=== PATIENT | female | born 2000 | race Caucasian/White ===

== ENCOUNTER 2021-11-10 15:06 | Emergency (ER) | payer OTHER ==
--- OUTSIDE RECORDS SUMMARY | 2021-11-10 15:10 | XMS REPORT | Continuity of Care Document ---
:2000 Author Organization [facility] t Address [facility] Marc Garnett [address] [place] [address] Care Team Providers Name Role Phone Pcp, Does Not Have A Primary Care Physician Lexa Chaney Attending Clinician Verónica Nino Attending Clinician Payers Payer Name Policy Type Policy Number Effective Date Expiration Date S ource Problems Condition Condition Condition Status Onset Resolution Last Treating Co mments Source Name Details Category Date Date Treatment Clinician Date Encounter Encounter Disease Active Uni vers for other for other 1-10 ity of general general 00:00: [place] counseling counseling 00 Me dical or advice or advice Bran ch on on contracept contracept ion ion Chorioamni Chorioamni Disease Active 2020-05 U jomar onitis onitis - ity of 00:00: [address] Anemia, Anemia, Disease Active 2020-05 Univers - it y of 00:: [address] Thrombocyt Thrombocyt Disease Active 2020-05 U jomar openia openia - ity of 00:00: [address] Obesity Obesity Disease Active 2020-05 Univers (BMI (BMI 1-25 ity of 30-39.9) 30-39.9) 00:00: [address] Susceptibl Susceptibl Disease Active U nivers e to e to 5-12 ity of varicella varicella 00:00: [place] (non-immun (non-immun 00 Me dical e), e), Branch currently currently Nausea and Nausea and Disease Active U jomar vomiting vomiting 5-06 ity of during during 00:00: [place] 00 Medi mi Branch Supervisio Supervisio Disease Active U nivers n of n of 5-06 ity of high-risk [place] d[place] first first Branch trimester trimester History of History of Disease Active U nivers anxiety anxiety 5-06 ity of 00:00: [place] 00 Medical Branch History of History of Disease Active U nivers depression depression 5-06 it y of 00:00: [place] 00 [facility] Allergies, Adverse Reactions, Alerts Allergy Allergy Status Severity Reaction(s) Onset Inactive Treating Comm ents Source Name Type Date Date Clinician Jose Chao Active Hives Univers ty to 6-13 ity of adverse 00:00: [place] reaction 00 [facility] Social History Social Habit Start Date Stop Date Quantity Comments Source ASSERTION 2020-08-17 [facility] 00:00:00 [facility] Exposure to 2021-10-28 2021-11-07 Not sure [facility] SARS-CoV-2 00:00:00 14:24:00 [facility] (event) [place] Alcohol intake 2021-11-07 2021-11-07 Ex-drinker [facility] 00:00:00 00:00:00 (finding) [facility] Tobacco use and 2020-09-28 2020-09-28 Never used Universit y of exposure 00:00:00 00:00:00 [facility] Sex Assigned At [birth year] Universit y of 00:00:00 00:00:00 [facility] Smoking Status Start Date Stop Date Source Never smoker [facility] Medications Ordered Filled Start Stop Current Ordering Indication Dosage Frequency Signature Comments Components Source Medication Medication Date Date Medication? Clinician (SIG) Name Name norgestimat Yes [id number] 1{tbl} Take 1 Univers e-ethinyl 6-15 tablet by ity o f estradioL 00:00: mouth [place] 0.18/0.215/ 00 daily. Medica l 0.25 mg-35 Branch mcg (28) tablet doxycycline 2021- Yes [id number] 100mg Take 1 Univers hyclate 100 6-13 06-21 tablet by it y of mg tablet 00:00: 04:59 [place] 2 [place] 00 [place] (two) Medical times Branch daily for 7 days. D5W-LR 2020- No Ketonuria 1000mL Uni vers Bolus 5-06 05-06 ity of infusion 16:00: 15:23 [place] 1,000 mL 00 :00 Medical Branch D5W-LR 2020- No [id number] 1000mL at 500 U nivers Bolus 5-06 05-06 mL/hr, ity of infusion 16:00: 15:23 1,000 mL, Sanjiv as 1,000 mL 00 :00 IV Medical Infusion, Branch ONCE, 1 dose, Mora 09/28/20 at 1100, Routine D5W-LR 2020- No Ketonuria 1000mL Uni vers Bolus 5- 05-06 ity of infusion 16:00: 15:23 [place] 1,000 mL 00 :00 Medical Branch D5W-LR 2020- No [id number] 1000mL at 500 U nivers Bolus 5-06 05-06 mL/hr, ity of infusion 16:00: 15: 1,000 mL, Sanjiv as 1,000 mL 00 :00 IV Medical Infusion, Branch ONCE, 1 dose, Mora 09/28/20 at 1100, Routine D5W-LR 2020- No Ketonuria 1000mL Uni vers Bolus 5- 05-06 ity of infusion 16:00: 15:23 [place] 1,000 mL 00 :00 Medical Branch D5W-LR 2020- No [id number] 1000mL at 500 U nivers Bolus 5-06 05-06 mL/hr, ity of infusion 16:00: 15: 1,000 mL, Sanjiv as 1,000 mL 00 :00 IV Medical Infusion, Branch ONCE, 1 dose, Mora 09/28/20 at 1100, Routine proMETHazin Yes Nausea and 25mg Take 1 Univers e 25 mg 5-06 vomiting tablet by ity of tablet 00:00: during mouth [place] every 4 Medical (four) Branch hours as needed for Nausea and Vomiting (N/V). PNV 67-iron Yes Supervision 1{capsu Take 1 Univers ps-folate 5-06 of le} capsule by ity of no.1-dha 00:00: high-risk mouth Sanjiv as (VITAFOL 00 , daily. Med ical ULTRA) 29 first Branch mg iron- 1 trimester mg-200 mg Cap proMETHazin Yes Nausea and 25mg Take 1 Univers e 25 mg 5-06 vomiting tablet by ity of tablet 00:00: during mouth [place] 00 every 4 Medical (four) Branch hours as needed for Nausea and Vomiting (N/V). PNV 67-iron Yes Supervision 1{capsu Take 1 Univers ps-folate 5-06 of le} capsule by ity of no.1-dha 00:00: high-risk mouth Sanjiv as (VITAFOL 00 , daily. Med ical ULTRA) 29 first Branch mg iron- 1 trimester mg-200 mg Cap proMETHazin Yes Nausea and 25mg Take 1 Univers e 25 mg 5-06 vomiting tablet by ity of tablet 00:00: during mouth [place] 00 every 4 Medical (four) Branch hours as needed for Nausea and Vomiting (N/V). PNV 67-iron Yes Supervision 1{capsu Take 1 Univers ps-folate 5-06 of le} capsule by ity of no.1-dha 00:00: high-risk mouth Sanjiv as (VITAFOL 00 , daily. Med ical ULTRA) 29 first Branch mg iron- 1 trimester mg-200 mg Cap Immunizations Ordered Filled Immunization Date Status Comments [facility] e Immunization Name Name Varicella 2021-04-22 Completed [facility] (varivax)(chicken 00:00:00 [facility] edical pox) [place] Influenza Virus 2021-04-22 [address] [facility] y of Vaccine Quad IM, 00:00:00 [facility] dical Preserv and ABX Branch Free 6 MO-64 YRS TDAP 2021-02-20 Completed [facility] 00:00:00 [facility] Vital Signs Vital Name Observation Time Observation Value Comments Source Systolic blood 2021-11-07 19:24:00 107 mm[Hg] Univer sity of pressure [facility] Diastolic blood 2021-11-07 19:24:00 66 [facility]Hg[facility] 2021-11-07 19:24:00 86 /min [facility] Body temperature 2021-11-07 19:24:00 36.67 [facility] 2021-11-07 19:24:00 16 /min [facility] [place] Body height 2021-11-07 19:24:00 160 cm Universi ty of [place] Medical [place] Body weight 2021-11-07 19:24:00 82.872 kg Universi ty [facility] Medical [place] BMI 2021-11-07 19:24:00 32.36 kg/m2 Universi ty [facility] Systolic blood 2020-09-28 14:20:00 112 mm[Hg] Univer sity of pressure [place] [facility] [place] Diastolic blood 2020-09-28 14:20:00 72 mm[facility]Hg] [facility] Heart rate 2020-09-28 14:20:00 84 /min Universi ty [facility] Body temperature 2020-09-28 14:20:00 36.78 Dayan [facility] Respiratory rate 2020-09-28 14:20:00 16 /min [facility] Body height 2020-09-28 14:20:00 160 cm Universi ty [facility] Medical [place] Body weight 2020-09-28 14:20:00 57.664 kg Universi ty [facility] BMI 2020-09-28 14:20:00 22.52 kg/m2 Universi [facility] Procedures Procedure Date / Time Performed Performing Clinician Sour e POCT URINALYSIS W/O 2020-09-28 16:45:00 Ailyn Erickson [facility] POCT TEST 2020-09-28 14:19:00 Ailyn Erickson [facility] POCT URINALYSIS W/O 2020-09-28 14:19:00 Ailyn Erickson [facility] Plan of Care Planned Activity Planned Date Details Comments Source Future Scheduled 2021-09-28 Screening for University of Test 00:00:00 Chlamydia [facility] Branch (procedure) [code = 247109092] Future Scheduled 2021-09-28 DTaP,Tdap,and Td Postponed from Unive rsity of Test 00:00:00 Vaccines (1 - Tdap) 2008 [facility] [code = (Alternative Branch DTaP,Tdap,and Td Guidelines) Vaccines (1 - Tdap)] Future Scheduled 2021-09-28 Depression screening Uni versity of Test 00:00:00 (procedure) [code = [place] Me dical [id number]] Branch Future Scheduled 2021-09-28 MENINGOCOCCAL B Postponed from Univer sity of Test 00:00:00 VACCINES (1 of 2 - 09/30/2011 [place] Med ical Risk Bexsero 2-dose ( or Branch series) [code = ) MENINGOCOCCAL B VACCINES (1 of 2 - Risk Bexsero 2-dose series)] Future Scheduled 2021-09-28 MENINGOCOCCAL Postponed from Universi ty of Test 00:00:00 VACCINE (1 - 2-dose 2017 [place] Me dical series) [code = ( or Branch MENINGOCOCCAL ) VACCINE (1 - 2-dose series)] Future Scheduled 2021-09-28 MMR VACCINES (1 of 1 Postponed from U niversity of Test 00:00:00 - Standard series) 2002 [place] Med ical [code = MMR VACCINES ( or Branch (1 of 1 - Standard ) series)] Future Scheduled 2021-09-28 VARICELLA VACCINES Postponed from Uni versity of Test 00:00:00 (1 of 2 - 2-dose 2002 [place] Medic al childhood series) ( or Branch [code = VARICELLA ) VACCINES (1 of 2 - 2-dose childhood series)] Future Scheduled 2021-09-28 Screening for University of Test 00:00:00 Chlamydia [place] Medical trachomatis Branch (procedure) [code = [id number]] Future Scheduled 2021-09-28 DTaP,Tdap,and Td Postponed from Unive rsity of Test 00:00:00 Vaccines (1 - Tdap) 2008 [place] Me dical [code = (Alternative Branch DTaP,Tdap,and Td Guidelines) Vaccines (1 - Tdap)] Future Scheduled 2021-09-28 Depression screening Uni versity of Test 00:00:00 (procedure) [code = [place] Me dical [id number]] Branch Future Scheduled 2021-09-28 MENINGOCOCCAL B Postponed from Univer sity of Test 00:00:00 VACCINES (1 of 2 - 09/30/2011 [place] Med ical Risk Bexsero 2-dose ( or Branch series) [code = ) MENINGOCOCCAL B VACCINES (1 of 2 - Risk Bexsero 2-dose series)] Future Scheduled 2021-09-28 MENINGOCOCCAL Postponed from Universi ty of Test 00:00:00 VACCINE (1 - 2-dose 2017 [place] Me dical series) [code = ( or Branch MENINGOCOCCAL ) VACCINE (1 - 2-dose series)] Future Scheduled 2021-09-28 MMR VACCINES (1 of 1 Postponed from U niversity of Test 00:00:00 - Standard series) 2002 [place] Med ical [code = MMR VACCINES ( or Branch (1 of 1 - Standard ) series)] Future Scheduled 2021-09-28 VARICELLA VACCINES Postponed from Uni versity of Test 00:00:00 (1 of 2 - 2-dose 2002 [place] Medic al childhood series) ( or Branch [code = VARICELLA ) VACCINES (1 of 2 - 2-dose childhood series)] Future Scheduled 2021-09-28 Screening for University of Test 00:00:00 Chlamydia [place] Medical trachomatis Branch (procedure) [code = [id number]] Future Scheduled 2021-09-28 DTaP,Tdap,and Td Postponed from Unive rsity of Test 00:00:00 Vaccines (1 - Tdap) 2008 [place] Me dical [code = (Alternative Branch DTaP,Tdap,and Td Guidelines) Vaccines (1 - Tdap)] Future Scheduled 2021-09-28 Depression screening Uni versity of Test 00:00:00 (procedure) [code = [place] Me dical [id number]] Branch Future Scheduled 2021-09-28 MENINGOCOCCAL B Postponed from Univer sity of Test 00:00:00 VACCINES (1 of 2 - 09/30/2011 [place] Med ical Risk Bexsero 2-dose ( or Branch series) [code = ) MENINGOCOCCAL B VACCINES (1 of 2 - Risk Bexsero 2-dose series)] Future Scheduled 2021-09-28 MENINGOCOCCAL Postponed from Universi ty of Test 00:00:00 VACCINE (1 - 2-dose 2017 [place] Me dical series) [code = ( or Branch MENINGOCOCCAL ) VACCINE (1 - 2-dose series)] Future Scheduled 2021-09-28 MMR VACCINES (1 of 1 Postponed from U niversity of Test 00:00:00 - Standard series) 2002 [place] Med ical [code = MMR VACCINES ( or Branch (1 of 1 - Standard ) series)] Future Scheduled 2021-09-28 VARICELLA VACCINES Postponed from Uni versity of Test 00:00:00 (1 of 2 - 2-dose 2002 [place] Medic al childhood series) ( or Branch [code = VARICELLA ) VACCINES (1 of 2 - 2-dose childhood series)] Future Scheduled 2021-09-19 HPV VACCINES (1 - Postponed from Univ ersity of Test 00:00:00 2-dose series) [code 2012 [place] M edical = HPV VACCINES (1 - ( or Branch 2-dose series)] ) Future Scheduled 2021-09-19 HPV VACCINES (1 - Postponed from Univ ersity of Test 00:00:00 2-dose series) [code 2012 [place] M edical = HPV VACCINES (1 - ( or Branch 2-dose series)] ) Future Scheduled 2021-09-19 HPV VACCINES (1 - Postponed from Univ ersity of Test 00:00:00 2-dose series) [code 2012 [place] M edical = HPV VACCINES (1 - ( or Branch 2-dose series)] ) Future Scheduled 2021-01-24 INFLUENZA VACCINE Univer sity of Test 00:00:00 (Season Ended) [code [place] M edical = INFLUENZA VACCINE Branch (Season Ended)] Future Scheduled 2021-01-24 INFLUENZA VACCINE Univer sity of Test 00:00:00 (Season Ended) [code [place] M edical = INFLUENZA VACCINE Branch (Season Ended)] Future Scheduled 2021-01-24 INFLUENZA VACCINE Univer sity of Test 00:00:00 (Season Ended) [code [place] M edical = INFLUENZA VACCINE Branch (Season Ended)] Future Scheduled 2020-09-30 HEPATITIS A VACCINES Postponed from U niversity of Test 00:00:00 (1 of 2 - 2-dose 2002 [place] Medic al series) [code = (Current Branch HEPATITIS A VACCINES Contraindication) (1 of 2 - 2-dose series)] Future Scheduled 2020-09-30 HEPATITIS B VACCINES Postponed from U niversity of Test 00:00:00 (1 of 3 - 3-dose 2001 [place] Medic al primary series) (Current Branch [code = HEPATITIS B Contraindication) VACCINES (1 of 3 - 3-dose primary series)] Future Scheduled 2020-09-30 HEPATITIS A VACCINES Postponed from U niversity of Test 00:00:00 (1 of 2 - 2-dose 2002 [place] Medic al series) [code = (Current Branch HEPATITIS A VACCINES Contraindication) (1 of 2 - 2-dose series)] Future Scheduled 2020-09-30 HEPATITIS B VACCINES Postponed from U niversity of Test 00:00:00 (1 of 3 - 3-dose 2001 [place] Medic al primary series) (Current Branch [code = HEPATITIS B Contraindication) VACCINES (1 of 3 - 3-dose primary series)] Future Scheduled 2020-09-30 HEPATITIS A VACCINES Postponed from U niversity of Test 00:00:00 (1 of 2 - 2-dose 2002 [place] Medic al series) [code = (Current Branch HEPATITIS A VACCINES Contraindication) (1 of 2 - 2-dose series)] Future Scheduled 2020-09-30 HEPATITIS B VACCINES Postponed from U niversity of Test 00:00:00 (1 of 3 - 3-dose 2001 [place] Medic al primary series) (Current Branch [code = HEPATITIS B Contraindication) VACCINES (1 of 3 - 3-dose primary series)] Future Scheduled 2019-09-30 Hepatitis C University of Test 00:00:00 screening [place] Medical (procedure) [code = Branch [id number]] Future Scheduled 2019-09-30 Hepatitis C University of Test 00:00:00 screening [place] Medical (procedure) [code = Branch 216686908] Future Scheduled 2019-09-30 Hepatitis C University of Test 00:00:00 screening [place] Medical (procedure) [code = Branch [id number]] Future Scheduled 2017 SARS-CoV-2 University of Test 00:00:00 (COVID-19) Vaccine [place] Med ical (1) [code = Branch SARS-CoV-2 (COVID-19) Vaccine (1)] Future Scheduled 2017 SARS-CoV-2 University of Test 00:00:00 (COVID-19) Vaccine [place] Med ical (1) [code = Branch SARS-CoV-2 (COVID-19) Vaccine (1)] Future Scheduled 2017 SARS-CoV-2 University of Test 00:00:00 (COVID-19) Vaccine [facility] ical (1) [code = Branch SARS-CoV-2 (COVID-19) Vaccine (1)] Future Scheduled CBC WITH DIFF [code Ordered: Univ ersity of Test = 78900-0] 09/28/2020 [facility] Future Scheduled HEPATITIS B SURFACE Ordered: Univ ersity of Test ANTIGEN [code = 09/28/2020 [facility] 76206-1] Branch Future Scheduled HCV ANTIBODY [code = Ordered: Uni versity of Test 14464-0] 09/28/2020 [facility] Future Scheduled HIV 1/2 AG-AB WITH Ordered: Unive rsity of Test REFLEX [code = 09/28/2020 [facility] 02498-5] Branch Future Scheduled WORKUP, Ordered: Univers ity of Test BLOOD BANK [code = 09/28/2020 [facility] ical 3113] Branch Future Scheduled RUBELLA SCREEN Ordered: Universit y of Test (BREEZY) IGG [code = 09/28/2020 [facility] dical 72974-1] Branch Future Scheduled GALV ONLY - SYPHILIS Ordered: Uni versity of Test IGG/IGM [code = 09/28/2020 [facility] 36312-6] Branch Future Scheduled URINE CULTURE [code Ordered: Univ ersity of Test = 630-4] 09/28/2020 [facility] Future Scheduled VZV ANTIBODY SCREEN Ordered: Univ ersity of Test [code = 89354-4] 09/28/2020 [facility] Future Scheduled GC & CHLAMYDIA Universit y of Test AMPLIFIED ASSAY [facility] [code = 43207-1] [place] Future Scheduled CBC WITH DIFF [code Ordered: Univ ersity of Test = 77949-6] 09/28/2020 [facility] Future Scheduled HEPATITIS B SURFACE Ordered: Univ ersity of Test ANTIGEN [code = 09/28/2020 [facility] 37529-9] [place] Future Scheduled HCV ANTIBODY [code = Ordered: Uni versity of Test 75544-3] 09/28/2020 [facility] Future Scheduled HIV 1/2 AG-AB WITH Ordered: Unive rsity of Test REFLEX [code = 09/28/2020 [facility] 84126-8] Branch Future Scheduled WORKUP, Ordered: Univers ity of Test BLOOD BANK [code = 09/28/2020 [facility] ica 3113] Branch Future Scheduled RUBELLA SCREEN Ordered: Universit y of Test (BREEZY) IGG [code = 09/28/2020 [facility] dical 27674-9] Branch Future Scheduled GALV ONLY - SYPHILIS Ordered: Uni versity of Test IGG/IGM [[facility] = [facility] 39[facility] Branch Future Scheduled VZV ANTIBODY SCREEN Ordered: Univ ersity of Test [code = 51707-2] 09/28/2020 [facility] Future Scheduled GC & CHLAMYDIA Universit y of Test AMPLIFIED ASSAY [facility] [code = 08648-9] Branch [facility] Scheduled URINE CULTURE [code Univ ersity of Test = 630-4] [facility] Future Scheduled CBC WITH DIFF [code Ordered: Univ ersity of Test = 77813-4] 09/28/2020 [facility] Future Scheduled GC & CHLAMYDIA Ordered: Universit y of Test AMPLIFIED ASSAY 09/28/2020 [facility] l [code = 18894-8] [facility] Scheduled HEPATITIS B SURFACE Ordered: Univ ersity of Test ANTIGEN [code = 09/28/2020 [facility] 84577-0[facility] Branch [facility] Scheduled HCV ANTIBODY [code = Ordered: Uni versity of Test 56091-2] 09/28/2020 [facility] Future Scheduled HIV 1/2 AG-AB WITH Ordered: Unive rsity of Test REFLEX [code = 09/28/2020 [facility] 78429-8] Branch Future Scheduled WORKUP, Ordered: Univers ity of Test BLOOD BANK [code = 09/28/2020 [facility] ica 3113] Branch Future Scheduled RUBELLA SCREEN Ordered: Universit y of Test (BREEZY) IGG [code = 09/28/2020 [facility] dical 61489-8] Branch Future Scheduled GALV ONLY - SYPHILIS Ordered: Uni versity of Test IGG/IGM [code = [facility]28/2020 [facility] 83880-[facility] Branch [facility] Scheduled URINE CULTURE [code Ordered: Univ ersity of Test = 630-4] 09/28/2020 [facility] Future Scheduled VZV ANTIBODY SCREEN Ordered: Univ ersity of Test [code = 09434-9] 09/28/2020 [place] [facility] Branch Future Scheduled POCT URINALYSIS W/O 20 Occurrences Un iversity of Test SPECIFIC GRAVITY starting [place] Medic al [code = 02050] 09/28/2020 until Branch 09/28/2021, 1 completed Future Scheduled POCT URINALYSIS W/O 20 Occurrences Un iversity of Test SPECIFIC GRAVITY starting [place] Medic al [code = 00524] 09/28/2020 until Branch 09/28/2021, 1 completed Future Scheduled POCT URINALYSIS W/O 20 Occurrences Un iversity of Test SPECIFIC GRAVITY starting [place] Medic al [code = 67286] 09/28/2020 until Branch 09/28/2021, 1 completed Encounters Start End Encounter Admission Attending Care Care Encounter Source Date/Time Date/Time Type Type Clinicians Facility Department ID 2021-11-07 2021-11-07 Office [place] [facility] [id number] Univers 14:15:00 14:55:48 Visit Nitesh Lindquist [id number] Sanjiv as MATERNAL [id number] Med ical & CHILD 107 [facility] Results Test Description Test Time Test Comments Results Result Comments Source POCT URINALYSIS W/O SPECIFIC GRAVITY 2020-09-28 16:45:00 Test Item Value Reference Range Interpretation Comme nts POCT PH U (test code = 3254) 6 mg/dl 5-8 POCT U LEUK EST (test code = 3263) Trace Negative - Negative POCT U NIT (test code = 3262) Neg Negative - Negative POCT U PROT (test code = 3259) Trace Negative - Negative POCT U GLU (test code = 3256) 1000 Negative - Negative POCT U KETONE (test code = 3258) None Negative - Negative POCT U BLD (test code = 3257) Neg Negative - Negative [facility] SPEC[facility] [id number] 16:45:00 Test Item Value Reference Range Interpretation Comments POCT PH U (test code = 3254) 6 mg/dl 5-8 POCT U LEUK EST (test code = Trace Negative - Negative 3263) POCT U NIT (test code = 3262) Neg Negative - Negative POCT U PROT (test code = 3259) Trace Negative - Negative POCT U GLU (test code = 3256) 1000 Negative - Negative POCT U KETONE (test code = 3258) None Negative - Negative POCT U BLD (test code = 3257) Neg Negative - Negative [facility] URINALYSIS W/O SPECIFIC [id number] 16:45:00 Test Item Value Reference Range Interpretation Comments POCT PH U (test code = 3254) 6 mg/dl 5-8 POCT U LEUK EST (test code = Trace Negative - Negative 3263) POCT U NIT (test code = 3262) Neg Negative - Negative POCT U PROT (test code = 3259) Trace Negative - Negative POCT U GLU (test code = 3256) 1000 Negative - Negative POCT U KETONE (test code = 3258) None Negative - Negative POCT U BLD (test code = 3257) Neg Negative - Negative [facility] [id number] 14:19:00 Test Item Value Reference Range Interpretation Comments POCT PREG (test code = 1605) Positive On board controls acceptable with C Yes Line (test code = 3574) POCT PREG LOT # (test code = 3575) POCT PREG TEST DATE (test code = 3576) [facility] URINALYSIS W/O SPECIFIC [id number] 14:19:00 Test Item Value Reference Range Interpretation Comments POCT PH U (test code = 3254) 5 mg/dl 5-8 POCT U LEUK EST (test code = Neg Negative - Negative 3263) POCT U NIT (test code = 3262) Neg Negative - Negative POCT U PROT (test code = 3259) Trace Negative - Negative POCT U GLU (test code = 3256) Neg Negative - Negative POCT U KETONE (test code = 3258) 3+ Negative - Negative POCT U BLD (test code = 3257) Neg Negative - Negative [facility] [id number] 14:19:00 Test Item Value Reference Range Interpretation Comments POCT PREG (test code = 1605) Positive On board controls acceptable with C Yes Line (test code = 3574) POCT PREG LOT # (test code = 3575) POCT PREG TEST DATE (test code = 3576) [facility] URINALYSIS W/O SPECIFIC [id number] 14:19:00 Test Item Value Reference Range Interpretation Comments POCT PH U (test code = 3254) 5 mg/dl 5-8 POCT U LEUK EST (test code = Neg Negative - Negative 3263) POCT U NIT (test code = 3262) Neg Negative - Negative POCT U PROT (test code = 3259) Trace Negative - Negative POCT U GLU (test code = 3256) Neg Negative - Negative POCT U KETONE (test code = 3258) 3+ Negative - Negative POCT U BLD (test code = 3257) Neg Negative - Negative [facility] [id number] 14:19:00 Test Item Value Reference Range Interpretation Comments POCT PREG (test code = 1605) Positive On board controls acceptable with C Yes Line (test code = 3574) POCT PREG LOT # (test code = 3575) POCT PREG TEST DATE (test code = 3576) [facility] URINALYSIS W/O SPECIFIC [id number] 14:19:00 Test Item Value Reference Range Interpretation Comments POCT PH U (test code = 3254) 5 mg/dl 5-8 POCT U LEUK EST (test code = Neg Negative - Negative 3263) POCT U NIT (test code = 3262) Neg Negative - Negative POCT U PROT (test code = 3259) Trace Negative - Negative POCT U GLU (test code = 3256) Neg Negative - Negative POCT U KETONE (test code = 3258) 3+ Negative - Negative POCT U BLD (test code = 3257) Neg Negative - Negative [facility]
--- NOTE | 2021-11-10 17:02 | RAD REPORT ---
EXAM DESCRIPTION: US - Transvaginal Study Probe - 11/10/2021 4:31 pm CLINICAL HISTORY: cramping, recent IUD placement Pelvic pain. COMPARISON: Pelvis Complete dated 11/10/2021 FINDINGS: Transabdominal and transpelvic sonography were performed. The uterus is normal in size, shape and echotexture. The uterus measures 7 x 4 centimeters. IUD is in the fundal endometrium, appropriate placement. Both ovaries are normal in size, shape and echotexture. The right ovary measures 3.7 x 2.1 cm. The left ovary measures 4.1 x 2.5 cm. No ovarian or parovarian lesions. No adnexal masses. Normal Doppler blood flow was demonstrated to both ovaries. No significant pelvic ascites. IMPRESSION: IUD is in the fundal endometrium, appropriate placement.
--- NOTE | 2021-11-10 17:19 | EDPHYS ---
Physician Documentation [facility] Name: Toshia Mcclelland Age: 21 yrs Sex: Female : 2000 Arrival Date: 11/10/2021 Time: 15:07 Bed 10 Private MD: ED Physician Barrera Murdock HPI: 11/10 17:16 This 21 yrs old Female presents to ER via Ambulatory with complaints of Pelvic Pain - kb cramping, Vaginal Bleeding. 17:16 The patient presents with pelvic pain, vaginal bleeding that is. Onset: The kb symptoms/episode began/occurred today. Modifying factors: The symptoms are alleviated by nothing, the symptoms are aggravated by nothing. Associated signs and symptoms: Pertinent positives: cramping, vaginal bleeding. Severity of symptoms: At their worst the symptoms were moderate, in the emergency department the symptoms are unchanged. The patient has not experienced similar symptoms in the past. The patient has been recently seen by a physician:. Pt reports she had an IUD placed last month, but continued having vaginal bleeding so she went back to [facility] and was given oral BCP this week. States the bleeding has slowed down, but today she started cramping. States the cramping felt like period cramps at first, but have gotten worse. Historical: - Allergies: 15:20 No Known Allergies; aa5 - Home Meds: 15:20 None [Active]; aa5 - PMHx: 15:20 None; aa5 - PSHx: 15:20 None; aa5 - Immunization history:: Adult Immunizations up to date. - Social history:: Smoking status: Reported history of juuling and/or vaping. ROS: 17:15 Constitutional: Negative for fever, chills, and weight loss. kb 17:15 : Positive for vaginal bleeding, cramping. 17:15 All other systems are negative. Exam: 17:16 Constitutional: This is a well developed, well nourished patient who is awake, alert, kb and in no acute distress. Head/Face: Normocephalic, atraumatic. ENT: Moist Mucous membranes Respiratory: Respirations even and unlabored. No increased work of breathing. Talking in full sentences Skin: Warm, dry with normal turgor. Normal color. MS/ Extremity: Pulses equal, no cyanosis. Neurovascular intact. Full, normal range of motion. Neuro: Awake and alert, GCS 15, oriented to person, place, time, and situation. Moves all extremities. Normal gait. Psych: Awake, alert, with orientation to person, place and time. Behavior, mood, and affect are within normal limits. 17:16 Abdomen/GI: Inspection: abdomen appears normal, Bowel sounds: normal, in all quadrants, Palpation: soft, in all quadrants, mild abdominal tenderness, in the suprapubic area. Vital Signs: 15:18 BP 136 / 75; Pulse 94; Resp 18 S; Temp 97.5(TE); Pulse Ox 100% on R/A; Weight 82.55 kg aa5 (R); Height 5 ft. 3 in. (160.02 cm) (R); 15:18 Body Mass Index 32.24 (82.55 kg, 160.02 cm) aa5 MDM: 15:22 Patient medically screened. kb 17:15 Data reviewed: vital signs, nurses notes. Data interpreted: Pulse oximetry: on room air kb is 100 %. Interpretation: normal. Counseling: I had a detailed discussion with the patient and/or guardian regarding: the historical points, exam findings, and any diagnostic results supporting the discharge/admit diagnosis, radiology results, the need for outpatient follow up, an OB/Gyne specialist, to return to the emergency department if symptoms worsen or persist or if there are any questions or concerns that arise at home. 11/10 15:21 Order name: US Transvaginal Study (Probe); Complete Time: 17:15 kb 11/10 16:30 Order name: Pelvis Complete EDMS Administered Medications: No medications were administered Disposition Summary: 11/10/21 17:19 Discharge Ordered Location: Home kb Condition: Stable kb Diagnosis - Lower abdominal pain, unspecified - suprapubic cramping kb - Abnormal uterine and vaginal bleeding, unspecified kb Followup: kb - With: Emergency Department - When: As needed - Reason: Worsening of condition Followup: kb - With: Private Physician - When: 2 - 3 days - Reason: Recheck today's complaints, Continuance of care, Re-evaluation by your physician Discharge Instructions: - Discharge Summary Sheet kb - Pelvic Pain, Female, [id number] kb - Abnormal Uterine Bleeding, [id number] kb Forms: - Medication Reconciliation Form kb - Thank You Letter kb - Antibiotic Education kb - Prescription Opioid Use kb Prescriptions: - Diclofenac Sodium 75 mg Oral tablet,delayed release (DR/EC) - take 1 tablet by ORAL route 2 times per day As needed; 30 tablet; Refills: 0, kb Product Selection Permitted Signatures: Dispatcher [employer] Saloni Wei, DIDI-C Candi Collado, RN RN aa5
--- NOTE | 2021-11-10 17:19 | ER ---
Nurse's Notes 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 Reports lower abd cramping x 2 hours ago. Coronavirus screen: At this time, the client does not indicate any symptoms associated with coronavirus-19. Ebola Screen: Patient denies travel to an Ebola-affected area in the 21 days before illness onset. Initial Sepsis Screen: Does the patient meet any 2 criteria? HR > 90 bpm. Does the patient have a suspected source of infection? No. Patient's initial sepsis screen is negative. Risk Assessment: Do you want to hurt yourself or someone else? Patient reports no desire to harm self or others. Onset of symptoms was October 2021. 15:18 Acuity: ANA 3 aa5 15:18 Method Of Arrival: Ambulatory aa5 Historical: - Allergies: 15:20 No Known Allergies; aa5 - Home Meds: 15:20 None [Active]; aa5 - PMHx: 15:20 None; aa5 - PSHx: 15:20 None; aa5 - Immunization history:: Adult Immunizations up to date. - Social history:: Smoking status: Reported history of juuling and/or vaping. Screenin:23 Abuse screen: Denies threats or abuse. Denies injuries from another. Nutritional ss screening: No deficits noted. Tuberculosis screening: Never had TB. Fall Risk None identified. Assessment: 17:23 General: Appears in no apparent distress. comfortable, Behavior is calm, cooperative. ss Neuro: Jennings Agitation-Sedation Scale (RASS): 0 - Alert and Calm Level of Consciousness is awake, alert, obeys commands, Oriented to person, place, time, situation. Respiratory: Airway is patent Respiratory effort is even, unlabored, Respiratory pattern is regular, symmetrical. GI: No signs and/or symptoms were reported involving the gastrointestinal system. : Denies burning with urination, urinary frequency. Derm: Skin is pink, warm \\T\\ dry. normal. Vital Signs: 15:18 BP 136 / 75; Pulse 94; Resp 18 S; Temp 97.5(TE); Pulse Ox 100% on R/A; Weight 82.55 kg aa5 (R); Height 5 ft. 3 in. (160.02 cm) (R); 15:18 Body Mass Index 32.24 (82.55 kg, 160.02 cm) aa5 ED Course: 15:07 Patient arrived in ED. as 15:12 Saloni Herzog FNP-C is [facility]. kb 15:12 Barrera Murdock MD is Attending Physician. kb 15:18 Arm band placed on. aa5 15:20 Triage completed. aa5 16:30 Pelvis Complete In Process Unspecified. EDMS 16:32 US Transvaginal Study (Probe) In Process Unspecified. EDMS 17:23 Tammy Torres, LUPIS is Primary Nurse. ss 17:23 Patient has correct armband on for positive identification. Bed in low position. ss 17:23 No provider procedures requiring assistance completed. Patient did not have IV access ss during this emergency room visit. Administered Medications: No medications were administered Medication: 17:23 VIS not applicable for this client. ss Outcome: 17:19 Discharge ordered by . kb 17:23 Discharged to home ambulatory, with family. ss 17:23 Condition: good 17:23 Discharge instructions given to patient, Instructed on discharge instructions, follow up and referral plans. medication usage, Demonstrated understanding of instructions, follow-up care, medications, Prescriptions given X 1. 17:24 Patient left the ED. ss Signatures: Dispatcher [employer] EDMS Saloni Herzog FNP-C FNP-Ckb Martinez, Amelia as Candi Lee, RN RN aa Tammy Torres, LUPIS RN ss
[2021-11-10 17:30] VITALS: BP 136/75; TEMP 97.5; O2SAT 100
--- NOTE | 2021-11-12 11:51 | RAD REPORT ---
EXAM DESCRIPTION: US - Pelvis Complete - 11/10/2021 4:31 pm CLINICAL HISTORY: Cramping, recent IUD placement Pelvic pain. COMPARISON: Pelvis Complete dated 11/10/2021 FINDINGS: Transabdominal and transpelvic sonography were performed. The uterus is normal in size, shape and echotexture. The uterus measures 7 x 4 centimeters. IUD is in the fundal endometrium, appropriate placement. Both ovaries are normal in size, shape and echotexture. The right ovary measures 3.7 x 2.1 cm . The l eft ovary measures 4.1 x 2.5 cm . No ovarian or parovarian lesions. No adnexal masses. Normal Doppler blood flow was demonstrated to both ovaries. No significant pelvic ascites. IMPRESSION: IUD is in the fundal endometrium, appropriate placement.
== END 2021-11-10 17:24 | disposition home or self-care (01) ==
LOC: ER 15:06
DX: R10.2 Pelvic and perineal pain (principal); N93.9 Abnormal uterine and vaginal bleeding, unspecified; F17.290 Nicotine dependence, other tobacco product, uncomplicated
CPT/HCPCS: 76830; 76856; 99283

== ENCOUNTER 2022-11-06 22:02 | Emergency (ER) | payer OTHER ==
--- OUTSIDE RECORDS SUMMARY | 2022-11-06 22:43 | XMS REPORT | Continuity of Care Document ---
:2000 Author Organization [facility] t Address [address] [place] [address] [place] [id number] Care Team Providers Name Role Phone Katerin Rider Primary Care Physician [phone] MAEGAN GOFF Attending Clinician Unavailable MAEGAN GOFF Attending Clinician Unavailable ROSEMARIE MCCORMCAK Attending Clinician Unavailable Rosemarie Mccormack MD Attending Clinician Unknown, Attending Attending Clinician Unavailable KATERIN SHIPLEY Attending Clinician Unavailable Katerin Rider Attending Clinician [phone] GERI CHANDLER Attending Clinician Unavailable Geri Chandler CNM Attending Clinician Doctor Unassigned, [place] Attending Clinician Unavailable QUINTIN JASSO Attending Clinician Unavailable Quintin Cerrato Attending Clinician Nitesh Chaney Attending Clinician LANIE MURDOCK Attending Clinician Unavailable Lanie Murdock DPM Attending Clinician [phone] NITESH RAMÍREZ Attending Clinician Unavailable FRANSISCO SANTANA Attending Clinician Unavailable CORRIE GALLEGO Attending Clinician Unavailable Corrie Fam Attending Clinician SARAH SHEPHERD Attending Clinician Unavailable José Armenta MD Attending Clinician JOSÉ ARMENAT Attending Clinician Unavailable JOSÉ ARMENTA Attending Clinician Unavailable REMA HERRERA Attending Clinician Unavailable Rema Herrera DO Attending Clinician Sharon FILLER PICKER, Ti Sanches Attending Clinician Glenn PIMENTEL, Magean Attending Clinician Lalito Torres MD Attending Clinician Lizandro Davenport MD Attending Clinician TI HERRERA Attending Clinician Unavailable Ultrasound, Ang-steph Attending Clinician Unavailable Milad PIMENTEL, Ponce Woodard Attending Clinician [phone] PONCE STINSON Attending Clinician Unavailable Bon PIMENTEL, Glo Schmitz Attending Clinician GLO ARAGON Attending Clinician Unavailable GENEVIEVE WHITE Attending Clinician Unavailable GENEVIEVE WHITE Attending Clinician Unavailable Genevieve White MD Attending Clinician Lab, [facility] Attending Clinician Unavailable ADELINA AZAR Attending Clinician Unavailable [facility] Attending Clinician Nehal RN, Daisy Pierre Attending Clinician Unavailable Mikey TOLBERT, Eduardo Attending Clinician EDUARDO NEW Attending Clinician Unavailable Ultrasound, Jane [facility] Attending Clinician Unavailable Syed Leary MD Attending Clinician 1, [facility] Attending Clinician Unavailable Lab, [facility] Attending Clinician Unavailable Karena MSN, Mary Villalpando Attending Clinician Lab, Jane Fam Pob I Attending Clinician Unavailable UNKNOWN, ATTENDING Attending Clinician Unavailable MAEGAN GOFF Admitting Clinician Unavailable GENEVIEVE WHITE Admitting Clinician Unavailable Maegan Goff MD Admitting Clinician Genevieve White MD Admitting Clinician Payers Payer Name Policy Type Policy Number Effective Date Expiration Date Shalini lewis [facility] [place] [id number] 2020 00:00:00 Problems Condition Condition Condition Status Onset Resolution Last Treating Co mments Source Name Details Category Date Date Treatment Clinician Date Encounter Encounter Disease Active Uni vers for other for other 1-10 ity of general general 00:00: [place] counseling counseling 00 Me dical or advice or advice Bran ch on on contracept contracept ion ion Chorioamni Chorioamni Disease Active 2020-05 U jomar onitis onitis - ity of 00:00: [place] [facility] Anemia, Anemia, Disease Active 2020-05 Univers - it y of 00:00: [place] [facility] Thrombocyt Thrombocyt Disease Active 2020-05 U toners openia openia - ity of 00:: [place] [facility] Thrombocyt Thrombocyt Disease Active 2020-05 U nivers openia openia 06-21 ity of 00:: [place] [facility] Obesity Obesity Disease Active 2020-05 Univers (BMI (BMI 1-25 ity of 30-39.9) 30-39.9) 00:00: [place] [facility] Susceptibl Susceptibl Disease Active U toners e to e to 5-12 ity of varicella varicella 00:00: [place] (non-immun (non-immun 00 Me dical e), e), Branch currently currently History of History of Disease Active U jomar anxiety anxiety 5-06 ity of 00:00: [place] [facility] History of History of Disease Active U jomar depression depression 5-06 it y of 00:00: [place] [facility] Allergies, Adverse Reactions, Alerts Allergy Allergy Status Severity Reaction(s) Onset Inactive Treating Comm ents Source Name Type Date Date Clinician Jose Propensi Active Hives Univers ty to 6-13 ity of adverse 00:00: [place] reaction 00 Medical s Branch JOSE DRUG Active Hives Univers INGREDI 6-13 ity of 00:00: [place] [address] Medical Branch Social History Social Habit Start Date Stop Date Quantity Comments Source Exposure to 2022-10-26 2022-11-05 Not sure [facility] SARS-CoV-2 00:00:00 12:29:00 [facility] [place] [facility] (event) Branch Alcohol intake 2022-11-05 2022-11-05 Ex-drinker [facility] 00:00:00 00:00:00 [facility]finding[facility] Tobacco use and 2022-02-07 2022-02-07 Smokeless tobacco Un iversity of exposure 00:00:00 00:00:00 non-user [facility] Sex Assigned At [birth year] Universit y of 00:00:00 00:00:00 [facility] Smoking Status Start Date Stop Date Source Never smoked tobacco [facility] Medications Ordered Filled Start Stop Current Ordering Indication Dosage Frequency Signature Comments Components Source Medication Medication Date Date Medication? Clinician (SIG) Name Name ondansetron Yes [id number] 4mg Take 1 Univers 4 mg 6-13 tablet by ity of disintegrat 00:00: mouth [place] ing tablet 00 every 8 Medica l (eight) Branch hours as needed for Nausea and Vomiting (N/V). ondansetron Yes [id number] 4mg Take 1 Univers 4 mg 6-13 tablet by ity of disintegrat 00:00: mouth [place] ing tablet 00 every 8 Medica l (eight) Branch hours as needed for Nausea and Vomiting (N/V). ondansetron Yes [id number] 4mg Take 1 Univers 4 mg 6-13 tablet by ity of disintegrat 00:00: mouth [place] ing tablet 00 every 8 Medica l (eight) Branch hours as needed for Nausea and Vomiting (N/V). ondansetron Yes [id number] 4mg Take 1 Univers 4 mg 6-13 tablet by ity of disintegrat 00:00: mouth [place] ing tablet 00 every 8 Medica l (eight) Branch hours as needed for Nausea and Vomiting (N/V). dicyclomine 2022- Yes [id number] 10mg Take 1 Univers 10 mg 6-13 06-21 capsule by ity of capsule 00:00: 04:59 mouth 4 [place] 00 :00 (four) Medical times Branch daily for 7 days. dicyclomine 2022- Yes [id number] 10mg Take 1 Univers 10 mg 6-13 06-21 capsule by ity of capsule 00:00: 04:59 mouth 4 [place] 00 :00 (four) Medical times Branch daily for 7 days. dicyclomine 2022- Yes [id number] 10mg Take 1 Univers 10 mg 6-13 06-21 capsule by ity of capsule 00:00: 04:59 mouth 4 [place] 00 :00 (four) Medical times Branch daily for 7 days. dicyclomine 2022- Yes [id number] 10mg Take 1 Univers 10 mg 11-05- capsule by ity of capsule 00:00: 04:59 mouth 4 [place] 00 :00 (four) Medical times [place] daily for 7 days. predniSONE 2022- Yes [id number] 40mg Take 2 Univers 20 mg 08-21- tablets by ity of tablet 00:00: 04:59 mouth in [place] 00 :00 the Medical morning Branch for 5 days. medroxyPROG 2022- No [id number] 150mg Univers ESTERone 15 -17 ity of (DEPO-PROVE 19:30: 19:29 [facility]) syringe 00 :00 Medical 150 mg Branch medroxyPROG 2022- No [id number] 150mg 150 mg, Univers ESTERone 02-07-17 Intramuscu ity of (DEPO-PROVE 19:30: 19:29 [facility]) syringe 00 :00 [id number], Med ical 150 mg 4 doses, Branch First dose on [place] 02/07/22 at 1430, Last dose on [place] 10/17/22 at 1430, Routine medroxyPROG 2022- No [id number] 150mg Univers ESTERone -07 01- ity of (DEPO-PROVE 19:30: 19:29 [facility]) syringe 00 :00 Medical 150 mg Branch medroxyPROG 2022- No [id number] 150mg 150 mg, Univers ESTERone 02-07-17 Intramuscu ity of (DEPO-PROVE 19:30: 19:29 [facility]) syringe 00 :00 [id number], Med ical 150 mg 4 doses, Branch First dose on [place] 02/07/22 at 1430, Last dose on [place] 10/17/22 at 1430, Routine medroxyPROG 2021-2022- No [id number] 150mg Univers ESTERone -15 -17 ity of (DEPO-PROVE 19:30: 19:29 [facility]) syringe 00 :00 Medical 150 mg Branch medroxyPROG 2022- No [id number] 150mg Univers ESTERone 9-15 08-17 ity of (DEPO-PROVE 19:30: 19:29 [place] [facility]) syringe 00 :00 Medical 150 mg Branch medroxyPROG 2022-0 2023- No [id number] 150mg Univers ESTERone 9-15 08-17 ity of (DEPO-PROVE 19:30: 19:29 [place] [facility]) syringe 00 :00 Medical 150 mg Branch medroxyPROG 2022-0 2023- No [id number] 150mg Univers ESTERone 9-15 08-17 ity of (DEPO-PROVE 19:30: 19:29 [place] [facility]) syringe 00 :00 Medical 150 mg Branch medroxyPROG 2022-0 2023- No [id number] 150mg Univers ESTERone 9-15 08-17 ity of (DEPO-PROVE 19:30: 19:29 [place] [facility]) syringe 00 :00 Medical 150 mg Branch medroxyPROG 2022-0 2023- No [id number] 150mg Univers ESTERone 9-15 04-08 ity of (DEPO-PROVE 19:30: 20:10 [place] [facility]) syringe 00 :11 Medical 150 mg Branch medroxyPROG 2022-0 2023- No [id number] 150mg Univers ESTERone 9-15 04-08 ity of (DEPO-PROVE 19:30: 20:10 [place] [facility]) syringe 00 :11 Medical 150 mg Branch medroxyPROG 2022-0 2022- No [id number] 150mg Univers ESTERone 9-15 09-15 ity of (DEPO-PROVE 19:15: 19:15 [place] [facility]) 00 :47 Medical injection Branch 150 mg medroxyPROG 2022-0 2022- No [id number] 150mg Univers ESTERone 9-15 09-15 ity of (DEPO-PROVE 19:15: 19:15 [place] [facility]) 00 :47 Medical injection Branch 150 mg ciclopirox 2022-0 Yes [id number] Apply to Univers 8 % 7-08 area(s) at ity of solution 00:00: bedtime. [place] 00 Apply to Medical fungal Branch toenails once daily. Every 7 days please file toenails with nail file and apply rubbing alcohol. ciclopirox 2022-0 Yes [id number] Apply to Univers 8 % 7-08 area(s) at ity of solution 00:00: bedtime. [place] 00 Apply to Medical fungal Branch toenails once daily. Every 7 days please file toenails with nail file and apply rubbing alcohol. ciclopirox 2022-0 Yes [id number] Apply to Univers 8 % 7-08 area(s) at ity of solution 00:00: bedtime. [place] 00 Apply to Medical fungal Branch toenails once daily. Every 7 days please file toenails with nail file and apply rubbing alcohol. ciclopirox 2022-0 Yes [id number] Apply to Univers 8 % 7-08 area(s) at ity of solution 00:00: bedtime. [place] 00 Apply to Medical fungal Branch toenails once daily. Every 7 days please file toenails with nail file and apply rubbing alcohol. ciclopirox 2022-0 Yes [id number] Apply to Univers 8 % 7-08 area(s) at ity of solution 00:00: bedtime. [place] 00 Apply to Medical fungal Branch toenails once daily. Every 7 days please file toenails with nail file and apply rubbing alcohol. ciclopirox 2022-0 Yes [id number] Apply to Univers 8 % 7-08 area(s) at ity of solution 00:00: bedtime. [place] 00 Apply to Medical fungal Branch toenails once daily. Every 7 days please file toenails with nail file and apply rubbing alcohol. ciclopirox 2022-0 Yes [id number] Apply to Univers 8 % 7-08 area(s) at ity of solution 00:00: bedtime. [place] 00 Apply to Medical fungal Branch toenails once daily. Every 7 days please file toenails with nail file and apply rubbing alcohol. ciclopirox 2022-0 2023- No [id number] Apply to Univers 8 % 7-08 04-06 area(s) at ity of solution 00:00: 00:[place] Apply to Medical fungal Branch toenails once daily. Every 7 days please file toenails with nail file and apply rubbing alcohol. ciclopirox 2022-0 2023- No [id number] Apply to Univers 8 % 7-08 04-06 area(s) at ity of solution 00:00: 00:00 [place] :[place] Apply to Medical fungal Branch toenails once daily. Every 7 days please file toenails with nail file and apply rubbing alcohol. norgestimat 2021- No [id number] 1{tbl} Take 1 Univers e-ethinyl 6-15 -15 tablet by ity of estradioL 00:00: 00:00 mouth [place] 0.18/0.215/ 00 :00 daily. Medica l 0.25 mg-35 Branch mcg (28) tablet norgestimat 2021- No [id number] 1{tbl} Take 1 Univers e-ethinyl 6-15 -15 tablet by ity of estradioL 00:00: 00:00 mouth [place] 0.18/0.215/ 00 :00 daily. Medica l 0.25 mg-35 Branch mcg (28) tablet Immunizations Ordered Immunization Filled Immunization Date Status Commen ts Source Name Name Varicella 2021-04-22 Completed University of (varivax)(chicken 00:00:00 [place] M edical pox) Branch Influenza Virus 2021-04-22 Completed Universit y of Vaccine Quad IM, 00:00:00 [place] Sc dical Preserv and ABX Free Bran ch 6 MO-64 YRS Varicella 2021-04-22 Completed University of (varivax)(chicken 00:00:00 [place] M edical pox) Branch Influenza Virus 2021-04-22 Completed Universit y of Vaccine Quad IM, 00:00:00 [place] Sc [facility]ical Preserv and ABX Free Bran ch 6 MO-64 YRS Varicella 2021-04-22 Completed University of (varivax)(chicken 00:00:00 [place] M edical pox) Branch Influenza Virus 2021-04-22 Completed Universit y of Vaccine Quad IM, 00:00:00 [place] Sc [facility]ical Preserv and ABX Free Bran ch 6 MO-64 YRS Varicella 2021-04-22 Completed University of (varivax)(chicken 00:00:00 [place] M edical pox) Branch Influenza Virus 2021-04-22 Completed Universit y of Vaccine Quad IM, 00:00:00 [place] Me dical Preserv and ABX Free Bran ch 6 MO-64 YRS Varicella 2021-04-22 Completed University of (varivax)(chicken 00:00:00 [place] M edical pox) Branch Influenza Virus 2021-04-22 Completed Universit y of Vaccine Quad IM, 00:00:00 [place] Me dical Preserv and ABX Free Bran ch 6 MO-64 YRS Varicella 2021-04-22 Completed University of (varivax)(chicken 00:00:00 [place] M edical pox) Branch Influenza Virus 2021-04-22 Completed Universit y of Vaccine Quad IM, 00:00:00 [place] Me dical Preserv and ABX Free Bran ch 6 MO-64 YRS Varicella 2021-04-22 Completed University of (varivax)(chicken 00:00:00 [place] M edical pox) Branch Influenza Virus 2021-04-22 Completed Universit y of Vaccine Quad IM, 00:00:00 [place] Me dical Preserv and ABX Free Bran ch 6 MO-64 YRS Varicella 2021-04-22 Completed University of (varivax)(chicken 00:00:00 [place] M edical pox) Branch Influenza Virus 2021-04-22 Completed Universit y of Vaccine Quad IM, 00:00:00 [place] Me dical Preserv and ABX Free Bran ch 6 MO-64 YRS Varicella 2021-04-22 Completed University of (varivax)(chicken 00:00:00 [place] M edical pox) Branch Influenza Virus 2021-04-22 Completed Universit y of Vaccine Quad IM, 00:00:00 [place] Me dical Preserv and ABX Free Bran ch 6 MO-64 YRS Varicella 2021-04-22 Completed University of (varivax)(chicken 00:00:00 [place] M edical pox) Branch Influenza Virus 2021-04-22 Completed Universit y of Vaccine Quad IM, 00:00:00 [place] Me dical Preserv and ABX Free Bran ch 6 MO-64 YRS Varicella 2021-04-22 Completed University of (varivax)(chicken 00:00:00 [place] M edical pox) Branch Influenza Virus 2021-04-22 Completed Universit y of Vaccine Quad IM, 00:00:00 [place] Me dical Preserv and ABX Free Bran ch 6 MO-64 YRS Varicella 2021-04-22 Completed University of (varivax)(chicken 00:00:00 [place] M edical pox) Branch Influenza Virus 2021-04-22 Completed Universit y of Vaccine Quad IM, 00:00:00 [place] Me dical Preserv and ABX Free Bran ch 6 MO-64 YRS Varicella 2021-04-22 Completed University of (varivax)(chicken 00:00:00 [place] M edical pox) Branch Influenza Virus 2021-04-22 Completed Universit y of Vaccine Quad IM, 00:00:00 [place] Me dical Preserv and ABX Free Bran ch 6 MO-64 YRS Varicella 2021-04-22 Completed University of (varivax)(chicken 00:00:00 [place] M edical pox) Branch Influenza Virus 2021-04-22 Completed Universit y of Vaccine Quad IM, 00:00:00 [place] Me dical Preserv and ABX Free Bran ch 6 MO-64 YRS Varicella 2021-04-22 Completed University of (varivax)(chicken 00:00:00 [place] M edical pox) Branch Influenza Virus 2021-04-22 Completed Universit y of Vaccine Quad IM, 00:00:00 [place] Me dical Preserv and ABX Free Bran ch 6 MO-64 YRS Varicella 2021-04-22 Completed University of (varivax)(chicken 00:00:00 [place] M edical pox) Branch Influenza Virus 2021-04-22 Completed Universit y of Vaccine Quad IM, 00:00:00 [place] Me dical Preserv and ABX Free Bran ch 6 MO-64 YRS TDAP 2021-02-20 Completed [facility] 00:[facility]:00 [facility] TD[facility] 2021-02-20 Completed [facility] 00[facility]00:00 [facility] TDAP 2021-02-20 Completed University of 00:00:00 [facility] TDAP 2021-02-20 Completed University of 00:00:00 [facility] TDAP 2021-02-20 Completed University of 00:00:00 [facility] TDAP 2021-02-20 Completed University of 00:00:00 [facility] TDAP 2021-02-20 Completed University of 00:00:00 [facility] TDAP 2021-02-20 Completed University of 00:00:00 [facility] TDAP 2021-02-20 Completed University of 00:00:00 [facility] TDAP 2021-02-20 Completed University of 00:00:00 [facility] TDAP 2021-02-20 Completed University of 00:00:00 [facility] TDAP 2021-02-20 Completed University of 00:00:00 [facility] TDAP 2021-02-20 Completed University of 00:00:00 [facility] TDAP 2021-02-20 Completed University of 00:00:00 [facility] TDAP 2021-02-20 Completed University of 00:00:00 [facility] TDAP 2021-02-20 Completed University of 00:00:00 [facility] Meningococcal 2013-10-05 Completed University of Polysaccharide 00:00:00 [place] [facility] (groups A, C, Y and Branc h W-135) conjugate vaccine (MCV4P) TDAP 2013-10-05 Completed University of 00:00:00 [facility] Varicella 2013-10-05 Completed University of (varivax)(chicken 00:00:00 [place] M [facility]ical pox) Branch Meningococcal 2013-10-05 Completed University of Polysaccharide 00:00:00 [place] Medi mi (groups A, C, Y and Branc h W-135) conjugate vaccine (MCV4P) TDAP 2013-10-05 Completed University of 00:00:00 [facility] Varicella 2013-10-05 Completed University of (varivax)(chicken 00:00:00 [place] M [facility]ical pox) Branch Meningococcal 2013-10-05 Completed University of Polysaccharide 00:00:00 [place] Medi mi (groups A, C, Y and Branc h W-135) conjugate vaccine (MCV4P) TDAP 2013-10-05 Completed University of 00:00:00 [facility] Varicella 2013-10-05 Completed University of (varivax)(chicken 00:00:00 [place] M edical pox) Branch Meningococcal 2013-10-05 Completed University of Polysaccharide 00:00:00 [place] [facility]i mi (groups A, C, Y and Branc h W-135) conjugate vaccine (MCV4P) TDAP 2013-10-05 Completed University of 00:00:00 [facility] Varicella 2013-10-05 Completed University of (varivax)(chicken 00:00:00 [place] M [facility]ical pox) Branch Meningococcal 2013-10-05 Completed University of Polysaccharide 00:00:00 [place] [facility]i mi (groups A, C, Y and Branc h W-135) conjugate vaccine (MCV4P) TDAP 2013-10-05 Completed University of 00:00:00 [facility] Varicella 2013-10-05 Completed University of (varivax)(chicken 00:00:00 [place] M edical pox) Branch Meningococcal 2013-10-05 Completed University of Polysaccharide 00:00:00 [place] Medi mi (groups A, C, Y and Branc h W-135) conjugate vaccine (MCV4P) TDAP 2013-10-05 Completed University of 00:00:00 [facility] Varicella 2013-10-05 Completed University of (varivax)(chicken 00:00:00 [place] M edical pox) Branch Meningococcal 2013-10-05 Completed University of Polysaccharide 00:00:00 [place] [facility]i mi (groups A, C, Y and Branc h W-135) conjugate vaccine (MCV4P) TDAP 2013-10-05 Completed University of 00:00:00 [facility] Varicella 2013-10-05 Completed University of (varivax)(chicken 00:00:00 [place] M edical pox) Branch Meningococcal 2013-10-05 Completed University of Polysaccharide 00:00:00 [place] [facility]i mi (groups A, C, Y and Branc h W-135) conjugate vaccine (MCV4P) TDAP 2013-10-05 Completed University of 00:00:00 [facility] Varicella 2013-10-05 Completed University of (varivax)(chicken 00:00:00 [place] M edical pox) Branch Meningococcal 2013-10-05 Completed University of Polysaccharide 00:00:00 [place] [facility]i mi (groups A, C, Y and Branc h W-135) conjugate vaccine (MCV4P) TDAP 2013-10-05 Completed University of 00:00:00 [facility] Varicella 2013-10-05 Completed University of (varivax)(chicken 00:00:00 [place] M edical pox) Branch DTaP, Unspecified 2006-02-27 Completed Univers ity of Formulation 00:00:00 [facility] HEPATITIS A 2006-02-27 Completed [facility] 00:00:00 [facility] MMR 2006-02-27 Completed University [facility] 00:00:00 [facility] IPV 2006-02-27 Completed University of 00:00:00 [facility] DTaP, Unspecified 2006-02-27 Completed Univers ity of Formulation 00:00:00 [facility] HEPATITIS A 2006-02-27 Completed University of 00:00:00 [facility] MMR 2006-02-27 Completed University of 00:00:00 [facility] IPV 2006-02-27 Completed University of 00:00:00 [place] [facility] DTaP, Unspecified 2006-02-27 Completed Univers ity of Formulation 00:00:00 [place] [facility] HEPATITIS A 2006-02-27 Completed University of 00:00:00 [place] [facility] MMR 2006-02-27 Completed University of 00:00:00 [place] [facility] IPV 2006-02-27 Completed University of 00:00:00 [place] [facility] DTaP, Unspecified 2006-02-27 Completed Univers ity of Formulation 00:00:00 [place] [facility] HEPATITIS A 2006-02-27 Completed University of 00:00:00 [place] [facility] MMR 2006-02-27 Completed University of 00:00:00 [place] [facility] IPV 2006-02-27 Completed University of 00:00:00 [place] [facility] DTaP, Unspecified 2006-02-27 Completed Univers ity of Formulation 00:00:00 [place] [facility] HEPATITIS A 2006-02-27 Completed University of 00:00:00 [place] [facility] MMR 2006-02-27 Completed University of 00:00:00 [place] [facility] IPV 2006-02-27 Completed University of 00:00:00 [place] [facility] DTaP, Unspecified 2006-02-27 Completed Univers ity of Formulation 00:00:00 [place] [facility] HEPATITIS A 2006-02-27 Completed University of 00:00:00 [place] [facility] MMR 2006-02-27 Completed University of 00:00:00 [place] [facility] IPV 2006-02-27 Completed University of 00:00:00 [place] [facility] DTaP, Unspecified 2006-02-27 Completed Univers ity of Formulation 00:00:00 [place] [facility] HEPATITIS A 2006-02-27 Completed University of 00:00:00 [place] [facility] MMR 2006-02-27 Completed University of 00:00:00 [place] [facility] IPV 2006-02-27 Completed University of 00:00:00 [place] [facility] DTaP, Unspecified 2006-02-27 Completed Univers ity of Formulation 00:00:00 [place] [facility] HEPATITIS A 2006-02-27 Completed University of 00:00:00 [place] [facility] MMR 2006-02-27 Completed University of 00:00:00 [place] [facility] IPV 2006-02-27 Completed University of 00:00:00 [place] [facility] DTaP, Unspecified 2006-02-27 Completed Univers ity of Formulation 00:00:00 [place] [facility] HEPATITIS A 2006-02-27 Completed University of 00:00:00 [place] [facility] MMR 2006-02-27 Completed [facility] 00:[facility]:00 [facility] IPV 2006-02-27 Completed [facility] 00:00:00 [facility] HEPATITIS A 2005-05-29 Completed [facility] of 00:00:00 [facility] Pneumococcal 7 2005-05-29 Completed University of Conjugate, PCV7 00:00:00 [place] [facility] (Prevnar7) [place] HEPATITIS A 2005-05-29 Completed University [facility] 00:00:00 [facility] Pneumococcal 7 2005-05-29 Completed University of Conjugate, PCV7 00:00:00 [place] [facility] (Prevnar7) Branch HEPATITIS A 2005-05-29 Completed [facility] 00:00:00 [facility] Pneumococcal 7 2005-05-29 Completed University of Conjugate, PCV7 00:00:00 [place] [facility] (Prevnar7) Branch HEPATITIS A 2005-05-29 Completed University [facility] 00:00:00 [facility] Pneumococcal 7 2005-05-29 Completed University of Conjugate, PCV7 00:00:00 [place] [facility] (Prevnar7) [place] HEPATITIS A 2005-05-29 Completed University [facility] 00:00:00 [facility] Pneumococcal 7 2005-05-29 Completed University of Conjugate, PCV7 00:00:00 [place] [facility] (Prevnar7) Branch HEPATITIS A 2005-05-29 Completed [facility] 00:00:00 [facility] Pneumococcal 7 2005-05-29 Completed University of Conjugate, PCV7 00:00:00 [place] [facility] (Prevnar7) [place] HEPATITIS A 2005-05-29 Completed University [facility] 00:00:00 [facility] Pneumococcal 7 2005-05-29 Completed University of Conjugate, PCV7 00:00:00 [place] [facility] (Pre[facility]ar7) [place] HEPATITIS A 2005-05-29 Completed [facility] 00:[facility] Pneumococcal 7 2005-05-29 Completed University of Conjugate, PCV7 00:00:00 [place] [facility] (Prevnar7) [place] HEPATITIS A 2005-05-29 Completed [facility] 00:[facility] Pneumococcal 7 2005-05-29 Completed University of Conjugate, PCV7 00:00:00 [place] [facility] (Prevnar7) [place] DTaP, Unspecified 2003-09-13 Completed Univers [facility]y [facility] Formulation 00:00:00 [facility] HIB 4 Dose Schedule 2003-09-13 Completed [facility]ity [facility] 00:00:00 [facility] MMR 2003-09-13 Completed [facility] 00:[facility] IPV 2003-09-13 Completed [facility] 00:[facility]:00 [facility] Varicella 2003-09-13 Completed [facility] of (varivax)(chicken 00:00:00 [place] [facility]ox[facility] DTaP, Unspecified 2003-09-13 Completed [facility] Formulation 00:00:00 [facility] HIB 4 Dose Schedule 2003-09-13 Completed [facility] 00:00:00 [facility] MMR 2003-09-13 Completed [facility] 00:00:00 [facility] IPV 2003-09-13 Completed [facility] 00:00:00 [facility] Varicella 2003-09-13 Completed [facility] (varivax)(chicken 00:00:00 [place] [facility] pox) [facility] DTaP, Unspecified 2003-09-13 Completed [facility] Formulation 00:00:00 [facility] HIB 4 Dose Schedule 2003-09-13 Completed [facility] 00:00:00 [facility] MMR 2003-09-13 Completed [facility] 00:00:00 [facility] IPV 2003-09-13 Completed [facility] 00:00:00 [facility] Varicella 2003-09-13 Completed [facility] of (varivax)(chicken 00:00:00 [place] [facility] pox) [facility] DTaP, Unspecified 2003-09-13 Completed Univers ity [facility] Formulation 00:00:00 [facility] HIB 4 Dose Schedule 2003-09-13 Completed [facility]ity [facility] 00:00:00 [facility] MMR 2003-09-13 Completed [facility] 00:00:00 [facility] IPV 2003-09-13 Completed [facility] 00:00:00 [facility] Varicella 2003-09-13 Completed [facility] of (varivax)(chicken 00:00:00 [place] [facility] pox) [facility] DTaP, Unspecified 2003-09-13 Completed Univers ity [facility] Formulation 00:00:00 [facility] HIB 4 Dose Schedule 2003-09-13 Completed [facility]ity [facility] 00:00:00 [facility] MMR 2003-09-13 Completed [facility] 00:00:00 [facility] IPV 2003-09-13 Completed [facility] 00[facility]00:00 [facility] Varicella 2003-09-13 Completed [facility] (varivax)(chicken 00:00:00 [place] [facility] pox) [facility] DTaP, Unspecified 2003-09-13 Completed [facility] ity [facility] Formulation 00:00:00 [facility] HIB 4 Dose Schedule 2003-09-13 Completed [facility]ity [facility] 00:00:00 [facility] MMR 2003-09-13 Completed [facility] 00:00:00 [facility] IPV 2003-09-13 Completed [facility] 00:00:00 [facility] Varicella 2003-09-13 Completed [facility] of (varivax)(chicken 00:00:00 [place] [facility] pox) [facility] DTaP, Unspecified 2003-09-13 Completed [facility] ity [facility] Formulation 00:00:00 [facility] HIB 4 Dose Schedule 2003-09-13 Completed [facility] rsity [facility] 00:00:00 [facility] MMR 2003-09-13 Completed [facility] 00:00:00 [facility] IPV 2003-09-13 Completed [facility] 00:00:00 [facility] Varicella 2003-09-13 Completed [facility] (varivax)(chicken 00:00:00 [place] [facility] pox) [facility] DTaP, Unspecified 2003-09-13 Completed Univers ity [facility] Formulation 00:00:00 [facility] HIB 4 Dose Schedule 2003-09-13 Completed [facility]ive rsity [facility] 00:00:00 [facility] MMR 2003-09-13 Completed [facility] 00:00:00 [facility] IPV 2003-09-13 Completed [facility] 00:00:00 [facility] Varicella 2003-09-13 Completed [facility] of (varivax)(chicken 00:00:00 [place] [facility] pox) [facility] DTaP, Unspecified 2003-09-13 Completed Univers ity [facility] Formulation 00:00:00 [facility] HIB 4 Dose Schedule 2003-09-13 Completed [facility]ive rsity [facility] 00:00:00 [facility] MMR 2003-09-13 Completed [facility] 00:00:00 [facility] IPV 2003-09-13 Completed [facility] 00:00:00 [facility] Varicella 2003-09-13 Completed [facility] of (varivax)(chicken 00:00:00 [place] [facility] pox[facility] Hep B, Adol or Pedi 2003-04-28 Completed Unive rsity of Dosage 00:00:00 [facility] Hep B, Adol or Pedi 2003-04-28 Completed Unive rsity of Dosage 00:00:00 [facility] Hep B, Adol or Pedi 2003-04-28 Completed Unive rsity of Dosage 00:00:00 [facility] Hep B, Adol or Pedi 2003-04-28 Completed Unive rsity of Dosage 00:00:00 [facility] Hep B, Adol or Pedi 2003-04-28 Completed Unive rsity of Dosage 00:00:00 [facility] Hep B, Adol or Pedi 2003-04-28 Completed Unive rsity of Dosage 00:00:00 [facility] Hep B, Adol or Pedi 2003-04-28 Completed Unive rsity of Dosage 00:00:00 [facility] Hep B, Adol or Pedi 2003-04-28 Completed Unive rsity of Dosage 00:00:00 [facility] Hep B, Adol or Pedi 2003-04-28 Completed [facility]ive rsity of Dosage 00:00:00 [facility] DTaP, Unspecified 2002-06-29 Completed [facility] ity [facility] Formulation 00:00:00 [facility] HIB 4 Dose Schedule 2002-06-29 Completed [facility] 00:00:00 [facility] Pneumococcal 7 2002-06-29 Completed University of Conjugate, PCV7 00:00:00 [place] [facility] (Prevnar7) [facility] DTaP, Unspecified 2002-06-29 Completed [facility] it[facility] Formulation 00:00:00 [facility] HIB 4 Dose Schedule 2002-06-29 Completed [facility]ive rsity [facility] 00:00:00 [facility] Pneumococcal 7 2002-06-29 Completed University of Conjugate, PCV7 00:00:00 [place] [facility] (Prevnar7) [facility] DTaP, Unspecified 2002-06-29 Completed [facility] it[facility] Formulation 00:00:00 [facility] HIB 4 Dose Schedule 2002-06-29 Completed Unive rsity of 00:00:00 [facility] Pneumococcal 7 2002-06-29 Completed University of Conjugate, PCV7 00:00:00 [place] [facility] (Prevnar7) [facility] DTaP, Unspecified 2002-06-29 Completed [facility] ity [facility] Formulation 00:00:00 [facility] HIB 4 Dose Schedule 2002-06-29 Completed [facility]ive rsity of 00:00:00 [facility] Pneumococcal 7 2002-06-29 Completed [facility] of Conjugate, PCV7 00:00:00 [place] [facility] (Prevnar7) [facility] DTaP, Unspecified 2002-06-29 Completed [facility] ity [facility] Formulation 00:00:00 [facility] HIB 4 Dose Schedule 2002-06-29 Completed [facility]ive rsity of 00:00:00 [facility] Pneumococcal 7 2002-06-29 Completed [facility] of Conjugate, PCV7 00:00:00 [place] [facility] (Prevnar7) [facility] DTaP, Unspecified 2002-06-29 Completed [facility] Formulation 00:00:00 [facility] HIB 4 Dose Schedule 2002-06-29 Completed [facility]ive rsity of 00:00:00 [facility] Pneumococcal 7 2002-06-29 Completed [facility] of Conjugate, PCV7 00:00:00 [place] [facility] (Prevnar7) [facility] DTaP, Unspecified 2002-06-29 Completed [facility] ity [facility] Formulation 00:00:00 [facility] HIB 4 Dose Schedule 2002-06-29 Completed Unive rsity of 00:00:00 [facility] Pneumococcal 7 2002-06-29 Completed University of Conjugate, PCV7 00:00:00 [facility] (Prevnar7) Branch DTaP, Unspecified 2002-06-29 Completed Univers ity of Formulation 00:00:00 [facility] HIB 4 Dose Schedule 2002-06-29 Completed Unive rsity of 00:00:00 [facility] Pneumococcal 7 2002-06-29 Completed [facility] of Conjugate, PCV7 00:00:00 [place] [facility] (Prevnar7) [facility] DTaP, Unspecified 2002-06-29 Completed [facility] ity [facility] Formulation 00:00:00 [facility] HIB 4 Dose Schedule 2002-06-29 Completed [facility]ive rsity of 00:00:00 [facility] Pneumococcal 7 2002-06-29 Completed University of Conjugate, PCV7 00:00:00 [place] [facility] (Prevnar7) [facility] DTaP, Unspecified 2002-04-13 Completed [facility] ity [facility] Formulation 00:00:00 [facility] HIB 4 Dose Schedule 2002-04-13 Completed Unive rsity of 00:00:00 [facility] Pneumococcal 7 2002-04-13 Completed [facility] of Conjugate, PCV7 00:00:00 [place] [facility] (Prevnar7) [facility] IPV 2002-04-13 Completed [facility] 00[facility]00:00 [facility] DTaP, Unspecified 2002-04-13 Completed [facility] ity [facility] Formulation 00:00:00 [facility] HIB 4 Dose Schedule 2002-04-13 Completed [facility]ive rsity of 00:00:00 [facility] Pneumococcal 7 2002-04-13 Completed [facility] of Conjugate, PCV7 00:00:00 [place] [facility] (Prevnar7) [facility] IPV 2002-04-13 Completed [facility] 00:00:00 [facility] DTaP, Unspecified 2002-04-13 Completed Univers ity of Formulation 00:00:00 [facility] HIB 4 Dose Schedule 2002-04-13 Completed [facility]ive rsity [facility] 00:00:00 [facility] Pneumococcal 7 2002-04-13 Completed [facility] of Conjugate, PCV7 00:00:00 [place] [facility] (Prevnar7) [facility] IPV 2002-04-13 Completed [facility] 00:00:00 [facility] DTaP, Unspecified 2002-04-13 Completed [facility] ity [facility] Formulation 00:00:00 [facility] HIB 4 Dose Schedule 2002-04-13 Completed [facility]ive rsity [facility] 00:00:00 [facility] Pneumococcal 7 2002-04-13 Completed [facility] of Conjugate, PCV7 00:00:00 [place] [facility] (Prevnar7) [facility] IPV 2002-04-13 Completed [facility] 00:00:00 [facility] DTaP, Unspecified 2002-04-13 Completed [facility] ity [facility] Formulation 00:00:00 [facility] HIB 4 Dose Schedule 2002-04-13 Completed Unive rsity of 00:00:00 [facility] Pneumococcal 7 2002-04-13 Completed [facility] of Conjugate, PCV7 00:00:00 [place] [facility] (Prevnar7) [facility] IPV 2002-04-13 Completed [facility] 00:00:00 [facility] DTaP, Unspecified 2002-04-13 Completed [facility] ity [facility] Formulation 00:00:00 [facility] HIB 4 Dose Schedule 2002-04-13 Completed Unive rsity of 00:00:00 [facility] Pneumococcal 7 2002-04-13 Completed [facility] of Conjugate, PCV7 00:00:00 [place] [facility] (Prevnar7) [facility] IPV 2002-04-13 Completed [facility] 00:00:00 [facility] DTaP, Unspecified 2002-04-13 Completed [facility] ity [facility] Formulation 00:00:00 [facility] HIB 4 Dose Schedule 2002-04-13 Completed Unive rsity of 00:00:00 [facility] Pneumococcal 7 2002-04-13 Completed [facility] of Conjugate, PCV7 00:00:00 [place] [facility] (Prevnar7) [facility] IPV 2002-04-13 Completed [facility] 00:00:00 [facility] DTaP, Unspecified 2002-04-13 Completed Univers ity [facility] Formulation 00:00:00 [facility] HIB 4 Dose Schedule 2002-04-13 Completed [facility]ive rsity of 00:00:00 [facility] Pneumococcal 7 2002-04-13 Completed [facility] of Conjugate, PCV7 00:00:00 [place] [facility] (Prevnar7) [facility] IPV 2002-04-13 Completed [facility] 00:00:00 [facility] DTaP, Unspecified 2002-04-13 Completed [facility] ity [facility] Formulation 00:00:00 [facility] HIB 4 Dose Schedule 2002-04-13 Completed Unive rsity [facility] 00:00:00 [facility] Pneumococcal 7 2002-04-13 Completed [facility] of Conjugate, PCV7 00:00:00 [place] [facility] (Prevnar7) [facility] IPV 2002-04-13 Completed [facility] 00:00:00 [facility] DTaP, Unspecified 2002-02-16 Completed [facility] Formulation 00:00:00 [facility] Hep B, Adol or Pedi 2002-02-16 Completed Unive rsity of Dosage 00:00:00 [facility] HIB 4 Dose Schedule 2002-02-16 Completed Unive rsity of 00:00:00 [facility] Pneumococcal 7 2002-02-16 Completed University of Conjugate, PCV7 00:00:00 [facility] ical (Prevnar7) Branch IPV 2002-02-16 Completed [facility] 00:00:00 [facility] DTaP, Unspecified 2002-02-16 Completed [facility] ity of Formulation 00:00:00 [facility] Hep B, Adol or Pedi 2002-02-16 Completed Unive rsity of Dosage 00:00:00 [facility] HIB 4 Dose Schedule 2002-02-16 Completed Unive rsity of 00:00:00 [facility] Pneumococcal 7 2002-02-16 Completed [facility] of Conjugate, PCV7 00:00:00 [place] [facility] (Prevnar7) [facility] IPV 2002-02-16 Completed [facility] 00:00:00 [facility] DTaP, Unspecified 2002-02-16 Completed [facility]y [facility] Formulation 00:00:00 [facility] Hep B, Adol or Pedi 2002-02-16 Completed Unive rsity of Dosage 00:00:00 [facility] HIB 4 Dose Schedule 2002-02-16 Completed [facility]ive rsity of 00:00:00 [facility] Pneumococcal 7 2002-02-16 Completed [facility] of Conjugate, PCV7 00:00:00 [place] [facility] (Prevnar7) [facility] IPV 2002-02-16 Completed [facility] 00:00:00 [facility] DTaP, Unspecified 2002-02-16 Completed [facility] ity [facility] Formulation 00:00:00 [facility] Hep B, Adol or Pedi 2002-02-16 Completed Unive rsity of Dosage 00:00:00 [facility] HIB 4 Dose Schedule 2002-02-16 Completed Unive rsity of 00:00:00 [facility] Pneumococcal 7 2002-02-16 Completed [facility] of Conjugate, PCV7 00:00:00 [place] [facility] (Prevnar7) [facility] IPV 2002-02-16 Completed [facility] 00:00:00 [facility] DTaP, Unspecified 2002-02-16 Completed [facility] it[facility] Formulation 00:00:00 [facility] Hep B, Adol or Pedi 2002-02-16 Completed Unive rsity of Dosage 00:00:00 [facility] HIB 4 Dose Schedule 2002-02-16 Completed Unive rsity [facility] 00:00:00 [facility] Pneumococcal 7 2002-02-16 Completed [facility] of Conjugate, PCV7 00:00:00 [place] [facility] (Prevnar7) [facility] IPV 2002-02-16 Completed [facility] 00:00:00 [facility] DTaP, Unspecified 2002-02-16 Completed [facility] Formulation 00:00:00 [facility] Hep B, Adol or Pedi 2002-02-16 Completed Unive rsity of Dosage 00:00:00 [facility] HIB 4 Dose Schedule 2002-02-16 Completed [facility]ive rsity of 00:00:00 [facility] Pneumococcal 7 2002-02-16 Completed [facility] of Conjugate, PCV7 00:00:00 [place] [facility] (Prevnar7) [facility] IPV 2002-02-16 Completed [facility] 00:00:00 [facility] DTaP, Unspecified 2002-02-16 Completed [facility] ity [facility] Formulation 00:00:00 [facility] Hep B, Adol or Pedi 2002-02-16 Completed Unive rsity of Dosage 00:00:00 [facility] HIB 4 Dose Schedule 2002-02-16 Completed Unive rsity of 00:00:00 [facility] Pneumococcal 7 2002-02-16 Completed [facility] of Conjugate, PCV7 00:00:00 [place] [facility] (Prevnar7) [facility] IPV 2002-02-16 Completed [facility] 00:00:00 [facility] DTaP, Unspecified 2002-02-16 Completed [facility] ity [facility] Formulation 00:00:00 [facility] Hep B, Adol or Pedi 2002-02-16 Completed Unive rsity of Dosage 00:00:00 [facility] HIB 4 Dose Schedule 2002-02-16 Completed [facility] rsity [facility] 00:00:00 [facility] Pneumococcal 7 2002-02-16 Completed [facility] of Conjugate, PCV7 00:00:00 [place] [facility] (Prevnar7) [facility] IPV 2002-02-16 Completed [facility] 00:00:00 [facility] DTaP, Unspecified 2002-02-16 Completed [facility] Formulation 00:00:00 [facility] Hep B, Adol or Pedi 2002-02-16 Completed Unive rsity of Dosage 00:00:00 [facility] HIB 4 Dose Schedule 2002-02-16 Completed Unive rsity of 00:00:00 [facility] Pneumococcal 7 2002-02-16 Completed [facility] of Conjugate, PCV7 00:00:00 [place] [facility] (Prevnar7) [facility] IPV 2002-02-16 Completed [facility] 00:00:00 [facility] Hep B, Adol or Pedi 2001 Completed Unive rsity of Dosage 00:00:00 [facility] Hep B, Adol or Pedi 2001 Completed Unive rsity of Dosage 00:00:00 [facility] Hep B, Adol or Pedi 2001 Completed Unive rsity of Dosage 00:00:00 [facility] Hep B, Adol or Pedi 2001 Completed Unive rsity of Dosage 00:00:00 [facility] Hep B, Adol or Pedi 2001 Completed Unive rsity of Dosage 00:00:00 [facility] Hep B, Adol or Pedi 2001 Completed Unive rsity of Dosage 00:00:00 [facility] Hep B, Adol or Pedi 2001 Completed Unive rsity of Dosage 00:00:00 [facility] Hep B, Adol or Pedi 2001 Completed Unive rsity of Dosage 00:00:00 [facility] Hep B, Adol or Pedi 2001 Completed [facility] rs[facility] Dosage 00:00:00 [facility] Vital Signs Vital Name Observation Time Observation Value Comments Source Systolic blood 2022-11-05 18:40:00 111 mm[Hg] Univer sity of pressure [facility] Diastolic blood 2022-11-05 18:40:00 73 mm[Hg] Unive rsity of pressure [facility] Heart rate 2022-11-05 18:40:00 83 /min [facility]i ty of [facility] Body temperature 2022-11-05 18:40:00 36.83 Dayan Univ ersity of [facility] Respiratory rate 2022-11-05 18:40:00 16 /min [facility] Body weight 2022-11-05 18:40:00 94.802 kg [facility] BMI 2022-11-05 18:40:00 37.02 kg/m2 [facility] Oxygen saturation in 2022-11-05 18:40:00 98 /min [facility] Arterial blood by [facility] Pulse oximetry Branch Systolic blood 2022-09-30 19:26:00 109 mm[Hg] Univer sity of pressure [facility] Diastolic blood 2022-09-30 19:26:00 73 mm[Hg] [facility] Heart rate 2022-09-30 19:26:00 92 /min [facility] Body temperature 2022-09-30 19:26:00 36.22 Dayan Univ ers[facility] of [facility] Respiratory rate 2022-09-30 19:26:00 18 /min Univ ersity of [facility] Body height 2022-09-30 19:26:00 160 cm [facility] Body weight 2022-09-30 19:26:00 96.208 kg [facility] BMI 2022-09-30 19:26:00 37.57 kg/m2 [facility] Systolic blood 2022-08-29 18:06:00 114 mm[Hg] Univer sity of pressure [facility] Diastolic blood 2022-08-29 18:06:00 67 mm[Hg] Unive rsity of pressure [facility] Heart rate 2022-08-29 18:06:00 92 /min [facility] Body temperature 2022-08-29 18:06:00 36.56 Dayan Univ [facility] Respiratory rate 2022-08-29 18:06:00 18 /min Univ ers[facility] of [facility] Body height 2022-08-29 18:06:00 160 cm [facility] Body weight 2022-08-29 18:06:00 95.165 kg [facility] BMI 2022-08-29 18:06:00 37.16 kg/m2 [facility] Systolic blood 2022-08-21 14:50:00 104 mm[Hg] Univer sity of pressure [facility] Diastolic blood 2022-08-21 14:50:00 67 mm[Hg] Unive rsity of pressure [facility] Heart rate 2022-08-21 14:50:00 84 /min [facility] Body temperature 2022-08-21 14:50:00 36.5 Dayan Univ [facility] Respiratory rate 2022-08-21 14:50:00 16 /min Univ ersity of [facility] Body height 2022-08-21 14:50:00 160 cm [facility] Body weight 2022-08-21 14:50:00 94.887 kg [facility] BMI 2022-08-21 14:50:00 37.06 kg/m2 [facility] Oxygen saturation in 2022-08-21 14:50:00 100 /min University Arterial blood by [facility] Pulse oximetry Branch Systolic blood 2022-08-13 18:36:00 114 mm[Hg] Univer sity of pressure [facility] Diastolic blood 2022-08-13 18:36:00 70 mm[Hg] Unive rsity of pressure [facility] Heart rate 2022-08-13 18:36:00 87 /min [facility] Body temperature 2022-08-13 18:36:00 37.22 Dayan Univ ers[facility] Respiratory rate 2022-08-13 18:36:00 20 /min [facility] Body height 2022-08-13 18:36:00 160 cm [facility] Body weight 2022-08-13 18:36:00 95.165 kg [facility] BMI 2022-08-13 18:36:00 37.16 kg/m2 [facility] Systolic blood 2022-02-07 18:51:00 116 mm[Hg] Univer sity of [facility] Diastolic blood 2022-02-07 18:51:00 65 mm[Hg] [facility] Heart rate 2022-02-07 18:51:00 110 /min [facility] Body temperature 2022-02-07 18:51:00 36.61 [facility] Respiratory rate 2022-02-07 18:51:00 18 /min [facility] Body height 2022-02-07 18:51:00 160 cm [facility] Body weight 2022-02-07 18:51:00 85.9 kg [facility] BMI 2022-02-07 18:51:00 33.55 kg/m2 [facility] Procedures Procedure Date / Time Performing Clinician Source Performed POCT TEST 2022-11-05 19:18:00 Rosemarie Mccormack [facility] CBC WITH DIFF 2022-08-29 18:50:00 Geri Chandler [facility] GLYCOSYLATED HEMOGLOBIN 2022-08-29 18:50:[address] [facility] (A1C) [facility] HCV ANTIBODY 2022-08-29 18:50:00 Geri Chandler [facility] HIV 1/2 AG-AB WITH 2022-08-29 18:50:00 [facility] SYPHILIS IGG/IGM 2022-08-29 18:50:00 Geri Chandler [facility] ASSIGNMENT OF BENEFITS 2022-08-29 17:51:46 Doctor Unassigned, No [facility] POCT SARS-COV-2 ANTIGEN 2022-08-21 15:14:00 Quintin Jasso [facility] (BINAX NOW) [facility] POCT MOLECULAR FLU 2022-08-21 15:01:00 Unknown, Attending Tanmay herbert [facility] DISCLOSURE AND CONSENT, 2022-08-13 05:01:00 Doctor Unassigned, N o [facility] MEDICAL AND SURGICAL Name [facility] PROCEDURES Encounters Start End Encounter Admission Attending Care Care Encounter Source Date/Time Date/Time Type Type Clinicians Facility Department ID 2021-04-19 Inpatient P MAEGAN GOFF [facility] [id number] Univers 19:42:00 MAEGAN GOFF ity [facility] 2021-04-06 Outpatient P [facility] [id number] Univers 12:45:39 ity [facility] 2021-04-03 Outpatient P [facility] [id number] [facility] Emergency [facility] [id number] [facility] 2022-11-05 2022-11-05 Outpatient R STEVE [facility] [id number] Univers 13:40:00 14:26:30 ROSEMARIE [facility] 2022-11-05 2022-11-05 Urgent Rosemarie Mccormack [facility] [id number] Univers 13:40:00 14:26:30 Care Unknown, [facility] [id number] [facility] [id number] Sanjiv as ALONSO?BLEA [phone] [address] MEDICAL OFFICE BUILDING 2022-09-30 2022-09-30 Outpatient R QUINTEN [facility] [id number] Univers 14:30:00 15:12:25 [facility] 2022-09-30 2022-09-30 [facility] [id number] Univers 14:30:00 15:12:25 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 [facility] [id number] Sanjiv as MATERNAL [id number] [facility] ical & CHILD [address] [place] [address] 2022-08-30 2022-08-30 Outpatient R QUINTEN [facility] [id number] Univers 14:45:00 14:45:00 [facility] 2022-08-29 2022-08-29 Outpatient R RYAN [facility] [id number] Univers 13:00:00 13:53:22 GERI ity [facility] 2022-08-29 2022-08-29 [facility] [id number] Univers 13:00:00 13:53:22 Visit Geri Villalpando 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 i ty [facility] [id number] Sanjiv as MATERNAL [phone] Med ical & CHILD [address] [place] [address] 2022-08-29 2022-08-29 Orders Doctor SANJEEV [id number] Univers 00:00:00 00:00:00 Only Unassigned, YEIMY [id number] ity of [place] [facility] [id number] Sanjiv as [id number] [id number] [address] 2022-08-21 2022-08-21 Outpatient R LOUISA [facility] [id number] Univers 09:20:00 10:15:47 QUINTIN [facility] 2022-08-21 2022-08-21 Urgent [facility] 1.2.840.114 [id number] Univers 09:20:00 10:15:47 Care Unknown, Attending [facility].1.13.10 [facility] 4.2.7.2.686 Sanjiv as ALONSO?BLEA [phone] Sc cash HESS [address] [place] [address] MEDICAL OFFICE BUILDING 2022-08-13 2022-08-13 Outpatient R QUINTEN [facility] [id number] Univers 13:30:00 14:12:48 KATERIN [facility] 2022-08-13 2022-08-13 Office [facility] 1.2.483.988 [id number] Univers 13:30:00 14:12:48 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10 ity of [facility] 4.2.7.2.686 Sanjiv as MATERNAL [phone] [facility] & CHILD [address] [place] [address] 2022-08-13 2022-08-13 Outpatient R QUINTEN [facility] [id number] Univers 13:30:00 13:30:00 KATERIN ity o [facility] 2022-08-13 2022-08-13 Orders Doctor PACE 1.2.840.114 [id number] Univers 00:00:00 00:00:00 Only Unassigned, YEIMY 350.1.13.10 ity of [place] [facility] 4.2.7.2.686 Sanjiv as [phone] [address] 2022-02-07 2022-02-07 Office Nitesh Ramírez [facility] 1.2.840 .114 [id number] Univers 13:30:00 14:14:25 Visit Katerin Shipley 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10 ity of [facility] 4.2.7.2.686 Sanjiv as MATERNAL [phone] [facility] & CHILD [address] [place] [address] 2021-12-14 2021-12-14 Outpatient R RYANN [facility] [id number] Univers 13:00:00 13:23:55 LANIE ity [facility] 2021-12-14 2021-12-14 Office [facility] 1.2.043.254 [id number] Univers 13:00:00 13:23:55 Visit Lanie PRIMARY 350.1.13.10 it[place] of [place] [phone] [facility] [address] 2021-11-30 2021-11-30 Office [facility] 1.2.278.472 [id number] Univers 15:00:00 15:43:03 Visit Lanie PRIMARY 350.1.13.10 ity of [place] [phone] [facility] [address] 2021-11-30 2021-11-30 [facility] [id number] Univers 15:00:00 15:43:03 LANIE ity [facility] 2021-11-30 2021-11-30 [facility] [id number] Univers 15:00:00 15:00:00 LANIE ity [facility] 2021-11-30 2021-11-30 Orders Doctor SANJEEV 1.2.840.114 [id number] Univers 00:00:00 00:00:00 Only Unassigned, YEIMY 350.1.13.10 ity of [place] [facility] 4.2.7.2.686 Sanjiv as [phone] [address] 2021-11-15 2021-11-15 Outpatient Lexa RAMÍREZ [facility] [id number] Univers 13:30:00 13:30:00 ROSHUNDA [facility] 2021-11-15 2021-11-15 Outpatient Lexa RAMRÍEZ [facility] [id number] Univers 13:30:00 13:30:00 ROSHUNDA [facility] 2021-11-08 2021-11-08 Outpatient Lexa SANTANA [facility] [id number] Univers 08:00:00 08:00:00 FRANSISCO itkaden [facility] 2021-11-07 2021-11-07 Outpatient R [facility] [id number] Univers 14:15:00 14:55:48 NITESH [facility] 2021-11-07 2021-11-07 Office [facility] 1.2.840.114 [id number] Univers 14:15:00 14:55:48 Visit Kalyanifern R 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10 ity of [facility] 4.2.7.2.686 Sanjiv as MATERNAL [id number] [facility] & CHILD [address] [place] [address] 2021-11-05 2021-11-05 Outpatient R KEYSHAWN [facility] [id number] Univers 15:00:00 15:16:22 CORRIE goldstein o [facility] 2021-11-05 2021-11-05 [facility] 1.2.840.114 [id number] Univers 15:00:00 15:16:22 Care [facility] 350.1.13.10 i ty of [place] 4.2.7.2.686 Sanjiv as ALONSO?BLEA [phone] [address] OFFICE [facility] 2021-11-05 2021-11-05 Telephone [facility] 1.2.765.066 [id number] Univers 00:00:00 00:00:00 Conora R 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10 ity of [facility] 4.2.7.2.686 Sanjiv as MATERNAL [phone] [address] 2021-10-04 2021-10-04 [facility] 1.2.840.114 [id number] Univers 14:00:00 14:43:57 Visit Kalyaniyuea R 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10 ity of [facility] 4.2.7.2.686 Sanjiv as MATERNAL [phone] [address] 2021-10-04 2021-10-04 Outpatient R [facility] [id number] Univers 14:00:00 14:43:57 ROSJOANANDA ity o [facility] 2021-10-042021-10-04 Outpatient R DARRELL [facility] [id number] Univers 14:00:00 14:00:00 NITESH goldstein o [facility] 2021-10-04 2021-10-04 Orders Doctor SANJEEV 1.2.840.114 [id number] Univers 00:00:00 00:00:00 Only Unassigned, YEIMY 350.1.13.10 ity of [address]2.686 Sanjiv as [phone] [address] 2021-09-18 2021-09-18 Outpatient R DARRELL [facility] [id number] Univers 15:15:00 15:34:39 NITESH goldstein o [facility] 2021-09-18 2021-09-18 Office [facility] 1.2.840.114 [id number] Univers 15:15:00 15:34:39 Visit Nitesh Lindquist 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10 ity [place] [address].2.7.2.686 Sanjiv as MATERNAL [phone] Med ical & CHILD [address] [place] [address] 2021-06-14 2021-06-14 Outpatient R JOAO [facility] [id number] Univers 09:30:00 09:30:00 SARAH goldstein [facility] 2021-06-04 2021-06-04 Office [facility] 1.2.129.674 [id number] Univers 13:15:00 14:21:44 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10 [facility] 4.2.7.2.686 Sanjiv as MATERNAL [phone] [facility] ical & CHILD [address] [place] [address] 2021-06-04 2021-06-04 Outpatient R QUINTEN, [facility] [id number] Univers 13:15:00 14:21:44 KATERIN [facility] 2021-06-04 2021-06-04 Outpatient R QUINTEN, [facility] [id number] Univers 13:15:00 13:15:00 KATERIN garcia [facility] 2021-06-04 2021-06-04 Outpatient R AKINSIPE, [facility] [id number] Univers 13:15:00 13:15:00 KATERIN itkaden [facility] 2021-05-24 2021-05-24 Office THA Armenta 1.2.199.643 [id number] Univers 13:45:00 14:00:00 Visit José Lee [facility] 350.1.13.10 i ty of [facility] 4.2.7.2.[place] [phone] [facility] [address] 2021-05-24 2021-05-24 Outpatient R JOSÉ ARMENTA [facility] [id number] Univers 13:45:00 13:45:00 JOSÉ ARMENTA i ty [facility] 2021-05-11 2021-05-11 [facility] [id number] Univers 10:45:00 11:42:19 KATERIN [facility] 2021-05-11 2021-05-11 Routine [facility] 1.2.830.286 [id number] Univers 10:45:00 11:42:19 Katerin Lee 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10 ity of Visit [facility] 4.2.7.2.686 Sanjiv as MATERNAL [phone] Med ical & CHILD [address] [place] [address] 2021-05-11 2021-05-11 Orders Doctor SANJEEV 1.2.840.114 [id number] Univers 00:00:00 00:00:00 Only Unassigned, YEIMY 350.1.13.10 ity of [place] [facility] 4.2.7.2.686 Sanjiv as [phone] [facility] [address] [place] 2021-04-24 2021-04-24 Emergency [facility] [id number] Univers 16:21:00 18:40:00 REMA [facility] 2021-04-24 2021-04-24 Emergency [facility] 1.2.840.114 [id number] Univers 16:21:00 18:40:00 Rema Dumont [place] 350.1.13.10 ity of [place].2.[place] [phone] [facility] [address] 2021-04-24 2021-04-24 Telephone [facility] 1.2.840.114 [id number] Univers 00:00:00 00:00:00 Ti Sanches 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10 it y of [facility] 4.2.7.2.686 Sanjiv as MATERNAL [phone] [facility] CHILD [address] [place] [address] 2021-04-23 2021-04-23 Telephone [facility] 1.2.840.114 [id number] Univers 00:00:00 00:00:00 Katerin Lee 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10 ity of [facility] 4.2.7.2.686 Sanjiv as MATERNAL [phone] [facility] & CHILD [address] [place] [address] 2021-04-19 2021-04-22 Inpatient P MAEGAN GOFF [facility] ARIANNE 1 [id number] Univers 19:42:00 13:29:00 MAEGAN GOFF [facility] 2021-04-19 2021-04-22 [facility] SANJEEV Goff 1.2.840.114 [id number] Univers 19:42:00 13:29:00 Encounter Maegan GAFFNEY 350.1.13.10 ity [facility] 4.2.7.2.686 Sanjiv as [phone] [facility] [address] 2021-04-20 2021-04-20 Anesthesia Lalito Torres 1.2.840.114 [id number] Univers 07:27:00 23:59:00 Event Lizandro Davenport 350.1.13.[address]686 Sanjiv as [phone] [facility] [address] 2021-04-19 2021-04-19 Inpatient P MAEGAN GOFF [facility] ARIANNE 1 [id number] Univers 19:42:00 19:42:00 MAEGAN GOFF [facility] 2021-04-16 2021-04-16 Outpatient R SHARON [facility] [id number] Univers 09:15:00 10:11:33 TI goldstein [facility] 2021-04-16 2021-04-16 Routine [facility] 1.2.729.223 [id number] Univers 09:09:48 10:11:33 Ti Verónica 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10 i ty of Visit REGIONAL 4.2.7.2.686 Sanjiv as MATERNAL [id number] [facility] & [address] 2021-04-16 2021-04-16 Outpatient R SHARON [facility] [id number] Univers 09:15:00 09:15:00 TI kaden [facility] 2021-04-16 2021-04-16 [facility] [id number] Univers 09:15:00 09:15:00 TI [facility] 2021-04-16 2021-04-16 Outpatient R [facility] [id number] Univers 09:00:00 09:00:00 [facility] 2021-04-13 2021-04-13 The[facility]ist [facility] 1.2 .840.114 [id number] Univers 10:05:38 10:35:38 Visit Ponce Stinson Vance 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 OPERATOR 350.1. 13.10 ity of [facility] 4.2.7.2.686 Sanjiv as MATERNAL [phone] [facility] & [address] 2021-04-13 2021-04-13 Outpatient P [facility] [id number] Univers 10:00:00 10:00:00 [facility] 2021-04-13 2021-04-13 Outpatient P MILAD [facility] [id number] Univers 10:00:00 10:00:00 [facility] 2021-04-12 2021-04-12 Office Glo Aragon [facility] 1.2.840.114 [id number] Univers 14:43:21 14:59:55 Visit Critical access hospital 350.1.13.10 i ty of CL[place] [id number] [address] 2021-04-12 2021-04-12 Outpatient R GLO ARAGON [facility] [id number] Univers 14:30:00 14:59:55 [facility] 2021-04-12 2021-04-12 Outpatient R GLO ARAGON [facility] [id number] Univers 14:30:00 14:30:00 itkaden [facility] 2021-04-12 2021-04-12 Outpatient R GLO ARAGON [facility] [id number] Univers 14:30:00 14:30:00 [facility] 2021-04-12 2021-04-12 Outpatient Lexa HERRERA [facility] [id number] Univers 09:00:00 10:08:06 TI goldstein [facility] 2021-04-12 2021-04-12 Outpatient Lexa HERRERA [facility] [id number] Univers 09:00:00 10:08:06 TI goldstein [facility] 2021-04-12 2021-04-12 Routine [facility] 1.2.550.770 [id number] Univers 08:50:10 10:08:06 Ti N 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10 i ty of Visit REGIONAL 4.2.7.2.686 Sanjiv as MATERNAL [phone] Med ical & CHILD [address] [place] [address] 2021-04-12 2021-04-12 Routine [facility] 1.2.300.474 [id number] Univers 08:50:10 10:08:06 Ti N 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10 i ty of Visit REGIONAL 4.2.7.2.686 Sanjiv as MATERNAL [phone] [facility] CH[facility] [address] [place] [address] 2021-04-12 2021-04-12 Outpatient Lexa HERRERA [facility] [id number] Univers 09:00:00 09:00:00 TI goldstein [facility] 2021-04-12 2021-04-12 Outpatient Lexa HERRERA [facility] [id number] Univers 08:45:00 08:45:00 TI goldstein [facility] 2021-04-12 2021-04-12 Outpatient Lexa HERRERA [facility] [id number] Univers 08:45:00 08:45:00 TI goldstein [facility] 2021-04-10 2021-04-10 [facility] [id number] Univers 14:15:00 14:56:53 TI goldstein [facility] 2021-04-10 2021-04-10 Routine [facility] 1.2.847.375 [id number] Univers 14:04:13 14:56:53 Ti N 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10 i ty of Visit REGIONAL 4.2.7.2.686 Sanjiv as MATERNAL [phone] [facility] CH[facility] [address] [place] [address] 2021-04-10 2021-04-10 [facility] [id number] Univers 14:15:00 14:15:00 TI goldstein [facility] 2021-04-10 2021-04-10 Outpatient R [facility] [id number] Univers 14:00:00 14:00:00 angelita [facility] 2021-04-06 2021-04-06 Routine [facility] 1.2.302.212 [id number] Univers 12:45:01 14:50:27 Ti N 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10 i ty of Visit REGIONAL 4.2.7.2.686 Sanjiv as MATERNAL [id number] [facility] & [address] 2021-04-06 2021-04-06 Routine [facility] 1.2.505.708 [id number] Univers 12:45:01 14:50:27 Ti N 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10 i ty of Visit REGIONAL 4.2.7.2.686 Sanjiv as MATERNAL [id number] [facility] & CHILD [address] [place] [address] 2021-04-06 2021-04-06 [facility] [id number] Univers 12:45:00 14:50:27 TI goldstein [facility] 2021-04-06 2021-04-06 Out[facility] [id number] Univers 12:45:00 14:50:27 TI goldstein [facility] 2021-04-06 2021-04-06 Outpatient [facility] [id number] Univers 12:45:00 12:45:00 TI goldstein [facility] 2021-04-06 2021-04-06 Outpatient [facility] [id number] Univers 12:30:00 12:30:00 TI goldstein [facility] 2021-04-05 2021-04-05 Case [facility] 1.2.710.009 [id number] Univers 00:00:00 00:00:00 Management Ti Sanches 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10 ity of [facility] 4.2.7.2.686 Sanjiv as MATERNAL [phone] Med ical & CHILD [address] [place] [address] 2021-04-05 2021-04-05 Telephone [facility] 1.2.840.114 [id number] Univers 00:00:00 00:00:00 Ti N 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10 it y of [facility] 4.2.7.2.686 Sanjiv as MATERNAL [phone] Med ical & CHILD [address] [place] [address] 2021-04-05 2021-04-05 Telephone [facility] 1.2.840.114 [id number] Univers 00:00:00 00:00:00 Ti Sanches 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10 it y of [facility] 4.2.7.2.686 Sanjiv as MATERNAL [phone] Med ical & CHILD [address] [place] [address] 2021-04-04 2021-04-04 Telephone [facility] 1.2.840.114 [id number] Univers 00:00:00 00:00:00 Ti Sanches 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10 it y of REGIONAL 4.2.7.2.686 Sanjiv as MATERNAL [phone] [facility] ical & CHILD [address] [place] [address] 2021-04-03 2021-04-03 Outpatient P GENEVIEVE WHITE [facility] ARIANNE [id number] Univers 15:12:00 17:45:00 GENEVIEVE WHITE [facility] 2021-04-03 2021-04-03 [facility] SANJEEV White 1.2.840.114 [id number] Univers 15:12:00 17:45:00 Encounter Genevieve GAFFNEY 350.1.13.10 ity of [facility] 4.2.7.2.686 Sanjiv as [id number] [address] 2021-04-03 2021-04-03 Outpatient P GENEVIEVE WHITE [facility] [id number] Univers 15:12:00 17:45:00 GENEVIEVE WHITE [facility] 2021-04-03 2021-04-03 Therapist Physical Lab, Ang-Rmchp [facility] 1.2.840. 114 [id number] Univers 13:11:50 13:31:01 Visit Ti Herrera 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10 ity of REGIONAL 4.2.7.2.686 Sanjiv as MATERNAL [id number] [facility] ical & CHILD [address] [place] [address] 2021-04-03 2021-04-03 Outpatient R SHARON [facility] [id number] Univers 13:15:00 13:15:00 TI goldstein [facility] 2021-04-03 2021-04-03 Outpatient R [facility] [id number] Univers 10:30:00 10:30:00 angelita [facility] 2021-03-30 2021-03-30 Telephone [facility] 1.2.840.114 [id number] Univers 00:00:00 00:00:00 Ti Sanches 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10 it y of REGIONAL 4.2.7.2.686 Sanjiv as MATERNAL [id number] [facility] & [address] 2021-03-27 2021-03-27 Routine [facility] 1.2.197.367 [id number] Univers 08:04:35 08:36:54 Ti Sanches 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10 i ty of Visit REGIONAL 4.2.7.2.686 Sanjiv as MATERNAL [phone] [facility] [address] [place] [address] 2021-03-27 2021-03-27 Out[facility] [id number] Univers 08:00:00 08:36:54 TI goldstein [facility] 2021-03-23 2021-03-23 Outpatient Lexa AZAR [facility] [id number] Univers 14:15:00 15:30:44 [facility] 2021-03-23 2021-03-23 Routine Anthony ORJORY 1.2.840.114 [id number] Univers 14:14:15 15:30:44 Adelina Garcia 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10 i ty of Visit REGIONAL 4.2.7.2.686 Sanjiv as MATERNAL [id number] Med ical & CHILD [address] [place] [address] 2021-03-22 2021-03-22 Telephone Sharon ORJORY 1.2.840.114 [id number] Univers 00:00:00 00:00:00 Ti Sanches 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10 it y of [facility] 4.2.7.2.686 Sanjiv as MATERNAL [id number] [facility] & CHILD [address] [place] [address] 2021-03-08 2021-03-08 Letter SANJEEV Calvert 1.2.840.114 [id number] Univers 00:00:00 00:00:00 (Out) Daisy GAFFNEY 350.1.13.10 it y of [facility] 4.2.7.2.686 Sanjiv as [id number] [address] 2021-03-07 2021-03-07 Urgent Mikey ORJORY 1.2.840.114 [id number] Univers 09:17:52 09:56:[address] [facility] 350.1.13.10 it y [facility] 4.2.7.2.686 Sanjiv as Laonso?Blea [phone] [address] Medical Office Building 2021-03-07 2021-03-07 Outpatient R MIKEY ORJORY [facility] [id number] Univers 09:20:00 09:20:00 [facility] 2021-03-07 2021-03-07 Telephone Sharon ORJORY 1.2.840.114 [id number] Univers 00:00:00 00:00:00 Ti Sanches 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10 it y of [facility] 4.2.7.2.686 Snajiv as MATERNAL [phone] [facility] & CHILD [address] [place] [address] 2021-03-06 2021-03-06 Routine Sharon [facility] 1.2.443.109 [id number] Univers 13:49:47 14:16:15 Ti N 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10 i ty of Visit [facility] 4.2.7.2.686 Sanjiv as MATERNAL [phone] Med ical & CHILD [address] [place] [address] 2021-03-06 2021-03-06 Outpatient R SHARON [facility] [id number] Univers 13:45:00 13:45:00 TI ity [facility] 2021-03-05 2021-03-06 Emergency [facility] 1.2.840.114 [id number] Univers 22:50:00 03:06:00 Rema Bose 350.1.13.10 ity [facility] [place]2.7.2.[place] [phone] [facility] [address] [place] 2021-03-05 2021-03-05 Orders Doctor SANJEEV 1.2.840.114 [id number] Univers 00:00:00 00:00:00 Only Unassigned, YEIMY 350.1.13.10 ity of [place] [facility] 4.2.7.2.686 Sanjiv as [phone] [facility] [address] [place] 2021-03-01 2021-03-01 Office Glo Aragon [facility] 1.2.840.114 [id number] Univers 14:25:11 14:51:06 Visit Critical access hospital 350.1.13.10 i ty of [place] [phone] [facility] [address] [place] 2021-03-01 2021-03-01 Outpatient GLO DSOUZA [facility] [id number] Univers 14:30:00 14:30:00 [facility] 2021-02-20 2021-02-20 Routine [facility] 1.2.327.729 [id number] Univers 12:49:52 13:34:41 Ti N 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10 i ty of Visit [facility] 4.2.7.2.686 Sanjiv as MATERNAL [phone] [facility] & CHILD [address] [place] [address] 2021-02-20 2021-02-20 Outpatient Lexa HERRERA [facility] [id number] Univers 12:45:00 12:45:00 TI goldstein [facility] 2021-02-20 2021-02-20 Orders Doctor SANJEEV [id number] [id number] Univers 00:00:00 00:00:00 Only Unassigned, YEIMY 350.1.13.10 ity of [place] [facility] 4.2.7.2.686 Sanjiv as [phone] [facility] 009 [place] 2021-01-30 2021-01-30 [facility] [id number] Univers 14:22:18 15:13:03 Ti N 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10 i ty of Visit [facility] 4.2.7.2.686 Sanjiv as MATERNAL [phone] [facility] ical & CHILD [address] [place] [address] 2021-01-30 2021-01-30 [facility] [id number] Univers 14:15:00 14:15:00 TI goldstein [facility] 2021-01-12 2021-01-12 [facility]phone [facility] 1.2.840.114 [id number] Univers 00:00:00 00:00:00 Ti Sanches 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10 it y of REGIONAL 4.2.7.2.686 Sanjiv as MATERNAL [phone] [facility] & [address] 2021-01-04 2021-01-04 Office Glo Aragon [facility] 1.2.840.114 [id number] Univers 14:11:43 14:26:43 Visit Critical access hospital 350.1.13.10 i ty of CL[place] 4[place] [phone] [facility] 028 [place] 2021-01-04 2021-01-04 Outpatient R GLO ARAGON [facility] [id number] Univers 14:15:00 14:15:00 ity [facility] 2021-01-02 2021-01-02 [facility] 1.2.840.114 [id number] Univers 15:04:14 15:19:14 Nitesh R 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10 ity of Visit [facility] 4.2.7.2.686 Sanjiv as MATERNAL [phone] [facility] & [address] 2021-01-02 2021-01-02 Outpatient R [facility] [facility] [id number] Univers 15:00:00 15:00:00 ROSHUNDA [facility] 2020-12-21 2020-12-21 Therapist Physical Meera, Adc [facility] 1.2 .840.114 [id number] Univers 14:05:58 15:04:47 Visit Syed Leary [place] 350.1.13.10 it[place] Profess[place] [phone] Sc dical [address] 2020-12-21 2020-12-21 Outpatient P [facility] [id number] Univers 14:00:00 14:00:00 ity [facility] 2020-12-05 2020-12-05 [facility] 1.2.840.114 [id number] Univers 17:16:27 18:00:34 Roszoiea R 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10 ity of Visit [facility] [id number] Sanjiv as MATERNAL [phone] [facility] & [address] 2020-12-05 2020-12-05 Outpatient R DARRELL [facility] [id number] Univers 17:15:00 17:15:00 [facility]HUNDA [facility] 2020-11-30 2020-11-30 [facility] [id number] Univers 15:00:00 15:00:00 TI ity [facility] 2020-11-01 2020-11-01 Outpatient R [facility] [id number] Univers 14:00:00 14:00:00 ity [facility] 2020-11-01 2020-11-01 Therapist Physical 1, [facility] Room [facility] 1.2. 840.114 [id number] Univers 12:58:15 13:43:15 Visit Genevieve White 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10 ity of [facility] [id number] Sanjiv as MATERNAL [phone] [facility] ical & CHILD [address] [facility] 2020-11-01 2020-11-01 Therapist [facility] 1.2.840. 114 [id number] Univers 12:58:42 13:34:26 Visit Genevieve White 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10 ity of [place] [facility] 4.2.7.2.686 [place] MATERNAL [phone] [facility] ical & CHILD 125 [facility] 2020-11-01 2020-11-01 Abstract Sharon [facility] 1.2.840.114 [id number] Univers 00:00:00 00:00:00 Ti N 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10 it y of [facility] 4.2.7.2.686 Sanjiv as MATERNAL [phone] [facility] & CHILD [address] [place] [address] 2020-10-31 2020-10-31 [facility] [id number] Univers 13:03:28 13:41:42 Ti Sanches 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10 i ty of Visit [facility] [id number] Sanjiv as MATERNAL [phone] [facility] & CHILD [address] [place] [address] 2020-10-31 2020-10-31 Outpatient [facility] [id number] Univers 13:00:00 13:00:00 TI goldstein [facility] 2020-10-03 2020-10-03 [facility] [id number] Univers 14:19:19 15:16:46 Ti Sanches 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10 i ty of Visit [facility] [id number] Sanjiv as MATERNAL [phone] [facility] & [address] 2020-10-03 2020-10-03 Outpatient [facility] [id number] Univers 14:15:00 14:15:00 TI goldstein [facility] 2020-09-28 2020-09-28 Initial [facility] [id number] Univers 08:57:47 11:22:29 Ti N 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10 i ty of Visit REGIONAL 4.2.7.2.686 Sanjiv as MATERNAL [phone] Med ical & CHILD 107 [facility] 2020-09-28 2020-09-28 Outpatient R SHARON, [facility] [id number] Univers 08:30:00 08:30:00 TI itkaden [facility] 2020-09-28 2020-09-28 Orders Doctor SANJEEV 1.2.840.114 [id number] Univers 00:00:00 00:00:00 Only Unassigned, YEIMY 350.1.13.10 ity of [place] [facility] 4.2.7.2.686 Sanjiv as [phone] [address] 2020-04-27 2020-04-27 Laboratory Lab, Adc Fam Pob I [facility] 1.2. 840.114 [id number] Univers 17:17:37 17:37:37 Only Unknown, Attending [facility].1.13.10 [facility] 4.2.7.2.686 Sanjiv as Professio [phone] Sc dical on license of [facility] [address] 2020-04-27 2020-04-27 Outpatient R UNKNOWN, [facility] [id number] Univers 17:20:00 17:20:00 ATTENDING [facility] 2020-04-27 2020-04-27 Letter Doctor SANJEEV 1.2.840.114 [id number] Univers 00:00:00 00:00:00 (Out) Unassigned, YEIMY 350.1.13.10 ity of [place] [facility] 4.2.7.2.686 Sanjiv as [phone] [address] Results Test Description Test Time Test Comments Results Result Comments Source POCT TEST 2022-11-05 19:18:00 Test Item Value Reference Range Interpretation Comme nts POCT PREG (test code = 1605) Negative On board controls acceptable with C Yes Line (test code = 3574) POCT PREG LOT # (test code = 3575) [id number] POCT PREG TEST DATE (test code 10/24/23 = 3576) LIANA (test code = LIANA) accurate development and interpretation of all internal controls\Ruthy Pérez RN ?11/05/2022 ?2:18 [id number] 19:18:00 Test Item Value Reference Range Interpretation Comments POCT PREG (test code Negative = 1605) On board controls Yes acceptable with C Line (test code = 3574) POCT PREG LOT # (test [id number] code = 3575) POCT PREG TEST 10/24/23 DATE (test code = 3576) LIANA (test code = LIANA) accurate development and interpretation of all internal controls\Ruthy Pérez RN ?11/05/2022 ?2:18 PM [facility] [id number] 19:18:00 Test Item Value Reference Range Interpretation Comments POCT PREG (test code Negative = 1605) On board controls Yes acceptable with C Line (test code = 3574) POCT PREG LOT # (test [id number] code = 3575) POCT PREG TEST 10/24/23 DATE (test code = 3576) LIANA (test code = LIANA) accurate development and interpretation of all internal controls\Ruthy Pérez RN ?11/05/2022 ?2:18 PM [facility] [id number] 19:18:00 Test Item Value Reference Range Interpretation Comments POCT PREG (test code Negative = 1605) On board controls Yes acceptable with C Line (test code = 3574) POCT PREG LOT # (test [id number] code = 3575) POCT PREG TEST 10/24/23 DATE (test code = 3576) LIANA (test code = LIANA) accurate development and interpretation of all internal controls\Ruthy Pérez RN ?11/05/2022 ?2:18 PM [facility] - SY[facility]IL[facility] [id number] 13:41:41 Test Item Value Reference Range Interpretation Comments Syphilis IgG/IgM (test Non-reactive Non-reactive code = 03823-3) LIANA (test code = LIANA) Non-reactive - No serologic evidence of T. pallidum infection. Cannot exclude incubating or early syphilis. Submit a second specimen in 2-4 weeks if syphilis is clinically suspected. Equivocal - Further testing to follow. Reactive - Further testing to follow. Lab Interpretation (test Normal code = 09642-4) [facility] [id number] 13:41:41 Test Item Value Reference Range Interpretation Comments Syphilis IgG/IgM (test Non-reactive Non-reactive code = 70229-1) LIANA (test code = LIANA) Non-reactive - No serologic evidence of T. pallidum infection. Cannot exclude incubating or early syphilis. Submit a second specimen in 2-4 weeks if syphilis is clinically suspected. Equivocal - Further testing to follow. Reactive - Further testing to follow. Lab Interpretation (test Normal code = 45678-5) [facility] 1/2 AG-AB WITH [id number] 08:25:46 Test Item Value Reference Range Interpretation Comments HIV 0.08 Negative Semi-quantitative (test code = 73610-7) LIANA (test code = Non-reactive for HIV-1 LIANA) antigen and HIV-1/HIV-2 antibodies. ?No laboratory evidence of HIV infection. ?Repeat in 2-4 weeks if acute HIV infection is suspected. [facility] 1/2 AG-AB WITH [id number] 08:25:46 Test Item Value Reference Range Interpretation Comments HIV 0.08 Negative Semi-quantitative (test code = 00513-9) LIANA (test code = Non-reactive for HIV-1 LIANA) antigen and HIV-1/HIV-2 antibodies. ?No laboratory evidence of HIV infection. ?Repeat in 2-4 weeks if acute HIV infection is suspected. [facility]2022-08-30 07:54:52 Test Item Value Reference Range Interpretation Comments HGB A1C (test code = 5.5 % 4.0-5.7 4548-4) LIANA (test code = LIANA) Reference RangesNormal: <5.7%Prediabetes: 5.7 - 6.4%Diabetes: > 6.5% Lab Interpretation (test Normal code = 69089-8) [facility]A1C)2022-08-30 07:54:52 Test Item Value Reference Range Interpretation Comments HGB A1C (test code = 5.5 % 4.0-5.7 4548-4) LIANA (test code = LIANA) Reference RangesNormal: <5.7%Prediabetes: 5.7 - 6.4%Diabetes: > 6.5% Lab Interpretation (test Normal code = 93443-7) [facility] [id number] 07:14:36 Test Item Value Reference Range Interpretation Comments HCV Ab (test code = 42783-4) Negative HCV Semi-Quantitative (test code = 0.04 23478-4) [facility] [id number] 07:14:36 Test Item Value Reference Range Interpretation Comments HCV Ab (test code = 88961-8) Negative HCV Semi-Quantitative (test code = 0.04 90970-0) [facility] WITH [id number] 06:36:14 Test Item Value Reference Range Interpretation Comments WBC (test code = 7.37 See_Comment [Automated 6522-2) message] The sy stem which generated this result transmitted reference range : 4.30 - 11.10 10*3/?L. The reference range was not used to interpret this result as normal/abnormal . RBC (test code = 5.57 See_Comment H [Automated 939-8) message] The sy stem which generated this result transmitted reference range : 3.93 - 5.25 10*6/?L. The reference range was not used to interpret this result as normal/abnormal . HGB (test code = 14.7 g/dL 11.6-15.0 718-7) HCT (test code = 45.8 % 35.7-45.2 H 4544-3) MCV (test code = 82.2 fL 80.6-95.5 787-2) MCH (test code = 26.4 pg 25.9-32.8 785-6) MCHC (test code = 32.1 g/dL 31.6-35.1 786-4) RDW-SD (test code = 44.0 fL 39.0-49.9 89134-3) RDW-CV (test code = 14.6 % 12.0-15.5 788-0) PLT (test code = 243 See_Comment [Automated 777-3) message] The sy stem which generated this result transmitted reference range : 166 - 358 10*3/ ?L. The reference r jasmine was not used to interpret this result as normal/abnormal . MPV (test code = 12.1 fL 9.5-12.9 85468-7) NRBC/100 WBC (test 0.0 See_Comment [Automat ed code = [id number]) message] The system which generated this result transmitted reference range : 0.0 - 10.0 /100 WBCs. The refer ence range was not u sed to interpret th is result as normal/abnormal . NRBC x10^3 (test code See_Comment [Auto mated = 4795734770) message] The s ystem which generated this result transmitted reference range : 10*3/?L. The reference range was not used to interpret this result as normal/abnormal . GRAN MAT (NEUT) % 55.9 % (test code = 770-8) IMM GRAN % (test code 0.30 % = 9719235902) LYMPH % (test code = 34.9 % 736-9) MONO % (test code = 6.2 % 5905-5) EOS % (test code = 2.0 % 713-8) BASO % (test code = 0.7 % 706-2) GRAN MAT x10^3(ANC) 4.12 10*3/uL 1.88-7.09 (test code = 4092537563) IMM GRAN x10^3 (test 0.00-0.06 code = 1567715105) LYMPH x10^3 (test code 2.57 10*3/uL 1.32-3.29 = 731-0) MONO x10^3 (test code 0.46 10*3/uL 0.33-0.92 = 742-7) EOS x10^3 (test code = 0.15 10*3/uL 0.03-0.39 711-2) BASO x10^3 (test code 0.05 10*3/uL 0.01-0.07 = 704-7) Lab Interpretation Abnormal (test code = 72322-6) [facility] WITH [id number] 06:36:14 Test Item Value Reference Range Interpretation Comments WBC (test code = 7.37 See_Comment [Automated 6690-2) message] The sy stem which generated this result transmitted reference range : 4.30 - 11.10 10*3/?L. The reference range was not used to interpret this result as normal/abnormal . RBC (test code = 5.57 See_Comment H [Automated 789-8) message] The sy stem which generated this result transmitted reference range : 3.93 - 5.25 10*6/?L. The reference range was not used to interpret this result as normal/abnormal . HGB (test code = 14.7 g/dL 11.6-15.0 718-7) HCT (test code = 45.8 % 35.7-45.2 H 4544-3) MCV (test code = 82.2 fL 80.6-95.5 787-2) MCH (test code = 26.4 pg 25.9-32.8 785-6) MCHC (test code = 32.1 g/dL 31.6-35.1 786-4) RDW-SD (test code = 44.0 fL 39.0-49.9 34945-3) RDW-CV (test code = 14.6 % 12.0-15.5 788-0) PLT (test code = 243 See_Comment [Automated 777-3) message] The sy stem which generated this result transmitted reference range : 166 - 358 10*3/ ?L. The reference r jasmine was not used to interpret this result as normal/abnormal . MPV (test code = 12.1 fL 9.5-12.9 27588-6) NRBC/100 WBC (test 0.0 See_Comment [Automat ed code = 6845881960) message] The system which generated this result transmitted reference range : 0.0 - 10.0 /100 WBCs. The refer ence range was not u sed to interpret th is result as normal/abnormal . NRBC x10^3 (test code See_Comment [Auto mated = 1312440627) message] The s ystem which generated this result transmitted reference range : 10*3/?L. The reference range was not used to interpret this result as normal/abnormal . GRAN MAT (NEUT) % 55.9 % (test code = 770-8) IMM GRAN % (test code 0.30 % = 2203821822) LYMPH % (test code = 34.9 % 736-9) MONO % (test code = 6.2 % 5905-5) EOS % (test code = 2.0 % 713-8) BASO % (test code = 0.7 % 706-2) GRAN MAT x10^3(ANC) 4.12 10*3/uL 1.88-7.09 (test code = 5538767430) IMM GRAN x10^3 (test 0.00-0.06 code = 6098178253) LYMPH x10^3 (test code 2.57 10*3/uL 1.32-3.29 = 731-0) MONO x10^3 (test code 0.46 10*3/uL 0.33-0.92 = 742-7) EOS x10^3 (test code = 0.15 10*3/uL 0.03-0.39 711-2) BASO x10^3 (test code 0.05 10*3/uL 0.01-0.07 = 704-7) Lab Interpretation Abnormal (test code = 20587-9) [facility] SARS-COV-2 ANTIGEN (BINAX NOW)2022-08-21 15:15:00 Test Item Value Reference Range Interpretation Comments POCT SARS-COV-2 Not Detected Not Detected ANTIGEN (test code = 18781-4) On board controls Yes acceptable with C Line (test code = 3574) LIANA (test code = accurate development and LIANA) interpretation of all internal controlsRuthy Pérez RN ?08/21/2022 ?10:14 AM [facility] MOLECULAR [id number] 15:12:48 Test Item Value Reference Range Interpretation Comments POCT Molecular FluA (test code = Negative Negative 37092-7) POCT Molecular FluB (test code = Negative Negative 71900-5) Lab Interpretation (test code = Normal 05574-1) [facility]
[2022-11-06] MEDS ORDERED: ONDANSETRON 4 MG/2 ML VIAL ONE (23:06)
[2022-11-06] MEDS ORDERED: NA CHLORIDE 0.9% 1,000 ML ONE (23:06)
[2022-11-06] MEDS ORDERED: FAMOTIDINE 20 MG/2 ML VIAL IV ONE (23:07)
[2022-11-06 23:10] LABS: Absolute Lymphocytes (CBC) 2.9 K/uL (0.7-4.9); Hematocrit 45.8 % (36.0-45.0); Lymphocytes % 37.1 % (15.3-44.8); MCV 81.6 fL (80-100); MPV 9.4 fL (7.6-11.3); RBC Red Blood Cell Count 5.61 M/uL (3.86-4.86)
[2022-11-07 00:04] LABS: Specific Gravity 1.027 (1.005-1.030); Urine Bacteria None Seen /HPF (<20); Urine Bilirubin NEGATIVE (Negative); Urine Blood Negative (Negative); Urine Clarity Extremely Turbid (Clear); Urine Color Yellow (Yellow); Urine Glucose NEGATIVE (Negative); Urine Mucus Slight /HPF (None Seen); Urine Protein 1+ (Negative); Urine RBC None Seen /HPF (None Seen); Urine Urobilinogen Normal (Normal)
[2022-11-07 00:11] LABS: Specific Gravity 1.027 (1.005-1.030)
[2022-11-07 00:29] LABS: Albumin 3.5 g/dL (3.4-5.0); Bilirubin Total 0.3 mg/dL (0.2-1.0); Potassium 3.5 mEq/L (3.5-5.1); Protein, Total 7.1 g/dL (6.4-8.2)
--- NOTE | 2022-11-07 01:32 | ER ---
Nurse's Notes [facility] Name: Toshia Mcclelland Age: 22 yrs Sex: Female : 2000 Arrival Date: 11/06/2022 Time: 22:02 Bed 6 Private MD: Diagnosis: UTI/ Urinary tract infection, site not specified Presentation: 11/06 22:30 Chief complaint: Patient states: I had diarrhea, nausea, vomiting, and horrible stomach vc1 pain for 8 days. I went to urgent care and they gave me some zofran and something to stop the diarrhea. The diarrhea has stopped but I feel worse. The stomach pain is so bad and I can't eat or drink anything. Coronavirus screen: Vaccine status: Patient reports being unvaccinated. Client denies travel out of the [place] in the last 14 days. diarrhea, headache, muscle pain, nausea, vomiting. Client presents with at least one sign or symptom that may indicate coronavirus-19. Standard/surgical mask placed on the client. Provider contacted for isolation considerations. Ebola Screen: Patient negative for fever greater than or equal to 101.5 degrees Fahrenheit, and additional compatible Ebola Virus Disease symptoms Patient denies exposure to infectious person. Patient denies travel to an Ebola-affected area in the 21 days before illness onset. No symptoms or risks identified at this time. Initial Sepsis Screen: Does the patient meet any 2 criteria? No. Patient's initial sepsis screen is negative. Does the patient have a suspected source of infection? No. Patient's initial sepsis screen is negative. Risk Assessment: Do you want to hurt yourself or someone else? Patient reports no desire to harm self or others. Onset of symptoms was October 29, 2022. 22:30 Method Of Arrival: Ambulatory vc1 22:30 Acuity: ANA 3 vc1 Triage Assessment: 22:35 General: Appears in no apparent distress. uncomfortable, ill, Behavior is calm, vc1 cooperative, appropriate for age. Pain:. Pain: Complains of pain in top of head, forehead, left side of the back of head, left occipital area, left base of the skull, right side of the back of head, right occipital area, right base of the skull and abdomen Pain does not radiate. Pain currently is 7 out of 10 on a pain scale. Also complains of nausea. EENT: No deficits noted. No signs and/or symptoms were reported regarding the EENT system. Neuro: Level of Consciousness is awake, alert, obeys commands, Oriented to person, place, time, situation, Appropriate for age Reports headache in entire parietal area, frontal area, occipital area. Cardiovascular: No deficits noted. Respiratory: No deficits noted. Airway is patent Respiratory effort is even, unlabored, Respiratory pattern is regular, symmetrical. GI: Abdomen is round non-distended, Reports lower abdominal pain, upper abdominal pain, intolerance of fluids, intolerance of food, nausea, vomiting. : No deficits noted. No signs and/or symptoms were reported regarding the genitourinary system. Derm: No deficits noted. No signs and/or symptoms reported regarding the dermatologic system. Musculoskeletal: No deficits noted. No signs and/or symptoms reported regarding the musculoskeletal system. 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 - Social history:: Smoking status: Reported history of juuling and/or vaping. Screenin:38 [facility] ED Fall Risk Assessment (Adult) History of falling in the last 3 months, vc1 including since admission No falls in past 3 months (0 pts) Confusion or Disorientation No (0 pts) Intoxicated or Sedated No (0 pts) Impaired Gait No (0 pts) Mobility Assist Device Used No (0 pt) Altered Elimination No (0 pt) Score/Fall Risk Level 0 - 2 = Low Risk Oriented to surroundings, Maintained a safe environment, Educated pt \T\ family on fall prevention, incl call for assistance when getting out of bed. Abuse screen: Denies threats or abuse. Nutritional screening: On. Tuberculosis screening: No symptoms or risk factors identified. Assessment: 11/07 00:51 Reassessment: No changes from previously documented assessment. Patient and/or family vc1 updated on plan of care and expected duration. Pain level reassessed. Nausea has improved. Vital Signs: 11/06 22:30 BP 118 / 69; Pulse 84; Resp 16; Temp 97.9; Pulse Ox 98% ; Weight 94.8 kg; Height 5 ft. vc1 3 in. ; Pain 7/10; 11/07 00:30 BP 109 / 64; Pulse 70; Resp 20; Pulse Ox 100% ; vc1 11/06 22:30 Body Mass Index 37.02 (94.80 kg, 160.02 cm) vc1 11/06 22:30 Pain Scale: Adult vc1 ED Course: 11/06 22:06 Patient arrived in ED. es 22:09 Bernardino Duran PA is PHCP. cp 22:09 Ray Bowles MD is Attending Physician. cp 22:35 Triage completed. vc1 22:38 Arm band placed on left wrist. vc1 22:42 Patient has correct armband on for positive identification. Bed in low position. Call vc1 light in reach. Client placed on continuous cardiac and pulse oximetry monitoring. NIBP monitoring applied. 22:55 Adrianne Giraldo, RN is Primary Nurse. vc1 22:55 Inserted saline lock: 20 gauge in right antecubital area, using aseptic technique. vc1 Blood collected. 23:05 CBC with Diff Sent. vc1 23:05 CMP Sent. vc1 23:05 Lipase Sent. vc1 23:05 Test, Urine Sent. vc1 23:05 Urinalysis w/ reflexes Sent. vc1 11/07 00:52 CT Abd/Pelvis - IV Contrast Only In Process Unspecified. EDMS 01:58 No provider procedures requiring assistance completed. IV discontinued, intact, vc1 bleeding controlled, No redness/swelling at site. Pressure dressing applied. Administered Medications: 11/06 23:05 Drug: NS 0.9% IV 1000 ml Route: IV; Rate: 1 bolus; Site: right antecubital; vc1 11/07 00:05 Follow up: IV Status: Completed infusion; IV Intake: 1000ml vc1 11/06 23:05 Drug: Ondansetron IVP 4 mg Route: IVP; Site: right antecubital; vc1 11/07 01:58 Follow up: Response: No adverse reaction; Marked relief of symptoms vc1 11/06 23:06 Drug: Famotidine IVP 20 mg Route: IVP; Site: right antecubital; vc1 11/07 01:58 Follow up: Response: No adverse reaction; Marked relief of symptoms vc1 01:45 Drug: Rocephin IV 1 grams Route: IV; Rate: calculated rate; Site: right antecubital; vc1 01:57 Follow up: IV Status: Completed infusion; IV Intake: 50ml vc1 Medication: 00:52 VIS not applicable for this client. vc1 Intake: 00:05 IV: 1000ml; Total: 1000ml. vc1 01:57 IV: 50ml; Total: 1050ml. vc1 Outcome: 01:31 Discharge ordered by MD. cp 01:59 Discharged to home ambulatory. vc1 01:59 Condition: improved 01:59 Discharge instructions given to patient, Instructed on discharge instructions, follow up and referral plans. medication usage, Demonstrated understanding of instructions, follow-up care, medications, Prescriptions given X 3. 01:59 Patient left the ED. vc1 Signatures: Dispatcher [employer] Juliann Fonseca Corey, PA PA cp Calcote, Vanessa, RN RN vc1
--- NOTE | 2022-11-07 01:32 | EDPHYS ---
Physician Documentation [facility] Name: Toshia Mcclelland Age: 22 yrs Sex: Female : 2000 Arrival Date: 11/06/2022 Time: 22:02 Bed 6 Private MD: ED Physician Ray Bowles HPI: 11/06 22:40 This 22 yrs old Female presents to ER via Ambulatory with complaints of Abdominal Pain, cp Nausea/Vomiting. 22:40 The patient presents with abdominal pain in the lower abdomen. cp 22:40 Onset: The symptoms/episode began/occurred 8 day(s) ago. cp 22:40 The symptoms do not radiate. Associated signs and symptoms: Pertinent positives: cp nausea, Pertinent negatives: constipation, vaginal discharge, no current diarrhea. The symptoms are described as crampy. Severity of pain: in the emergency department the pain is unchanged despite home interventions. 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 - Social history:: Smoking status: Reported history of juuling and/or vaping. ROS: 22:45 Constitutional: Positive for poor PO intake, Negative for body aches, chills, fever. cp 22:45 Respiratory: Negative for cough, shortness of breath, wheezing. cp 22:45 Abdomen/GI: Positive for abdominal pain, nausea and vomiting, of the right lower quadrant and left lower quadrant. 22:45 Cardiovascular: Negative for chest pain, palpitations. cp 22:45 Back: Negative for injury or acute deformity, decreased range of motion. 22:45 : Positive for burning with urination, Negative for difficulty urinating, vaginal cp bleeding, vaginal discharge. 22:45 Neuro: Negative for altered mental status, dizziness, headache, weakness. 22:45 All other systems are negative. Exam: 22:50 Constitutional: The patient appears in no acute distress, alert, awake, non-toxic, well cp developed, well nourished. 22:50 Head/Face: Normocephalic, atraumatic. cp 22:50 Eyes: Periorbital structures: appear normal, Conjunctiva: normal, no exudate, no injection, Sclera: no appreciated abnormality, Lids and lashes: appear normal, bilaterally. 22:50 ENT: External ear(s): are unremarkable, Nose: is normal, Mouth: Lips: moist, Oral mucosa: pink and intact, moist, Posterior pharynx: is normal, airway is patent, no erythema, no exudate. 22:50 Chest/axilla: Inspection: normal. 22:50 Cardiovascular: Rate: normal, Rhythm: regular. 22:50 Respiratory: the patient does not display signs of respiratory distress, Respirations: normal, no use of accessory muscles, no retractions, labored breathing, is not present, Breath sounds: are clear throughout, no decreased breath sounds, no stridor, no wheezing. 22:50 Abdomen/GI: Inspection: abdomen appears normal, Bowel sounds: active, all quadrants, Palpation: soft, in all quadrants, moderate abdominal tenderness, in the right lower quadrant and left lower quadrant, rebound tenderness, is not appreciated, involuntary guarding, is not appreciated. 22:50 Back: CVA tenderness, is absent. Vital Signs: 22:30 BP 118 / 69; Pulse 84; Resp 16; Temp 97.9; Pulse Ox 98% ; Weight 94.8 kg; Height 5 ft. vc1 3 in. ; Pain 7/10; 11/07 00:30 BP 109 / 64; Pulse 70; Resp 20; Pulse Ox 100% ; vc1 11/06 22:30 Body Mass Index 37.02 (94.80 kg, 160.02 cm) vc1 11/06 22:30 Pain Scale: Adult vc1 MDM: 11/06 22:24 Patient medically screened. cp 11/07 01:30 Data reviewed: vital signs, nurses notes, lab test result(s), radiologic studies, CT cp scan. 11/06 22:35 Order name: CBC with Diff; Complete Time: 23:39 cp 11/06 23:39 Interpretation: Normal except: RBC 5.61; HCT 45.8; MCH 26.3; RDW 15.5. cp 11/06 22:35 Order name: CMP; Complete Time: 00:30 cp 11/07 00:30 Interpretation: Normal except: CL 108; CRE 1.11; GFR 73; ALK 137; CA 8.3; GLOB 3.6; A/G cp 1.0. 11/06 22:35 Order name: Lipase; Complete Time: 00:30 cp 11/06 22:35 Order name: Test, Urine; Complete Time: 00:30 cp 11/06 22:35 Order name: Urinalysis w/ reflexes; Complete Time: 00:30 cp 11/06 22:35 Order name: CT Abd/Pelvis - IV Contrast Only cp 11/06 22:35 Order name: IV Saline Lock; Complete Time: 22:55 cp 11/06 22:35 Order name: Labs collected and sent; Complete Time: 22:55 cp Administered Medications: 11/06 23:05 Drug: NS 0.9% IV 1000 ml Route: IV; Rate: 1 bolus; Site: right antecubital; vc1 11/07 00:05 Follow up: IV Status: Completed infusion; IV Intake: 1000ml vc1 11/06 23:05 Drug: Ondansetron IVP 4 mg Route: IVP; Site: right antecubital; 1 11/07 01:58 Follow up: Response: No adverse reaction; Marked relief of symptoms vc1 11/06 23:06 Drug: Famotidine IVP 20 mg Route: IVP; Site: right antecubital; vc1 11/07 01:58 Follow up: Response: No adverse reaction; Marked relief of symptoms vc1 01:45 Drug: Rocephin IV 1 grams Route: IV; Rate: calculated rate; Site: right antecubital; vc1 01:57 Follow up: IV Status: Completed infusion; IV Intake: 50ml vc1 Disposition: 05:59 Co-signature as Attending Physician, Ray Bowles MD I reviewed the patient's care rt provided by the Advanced Practice Provider and agree with the diagnosis and treatment plan. Disposition Summary: 11/07/22 01:31 Discharge Ordered Location: Home cp Problem: new cp Symptoms: have improved cp Condition: Stable cp Diagnosis - UTI/ Urinary tract infection, site not specified cp Followup: cp - With: Private Physician - When: 2 - 3 days - Reason: Recheck today's complaints Discharge Instructions: - Discharge Summary Sheet cp - Urinary Tract Infection, Adult cp Forms: - Medication Reconciliation Form cp - Thank You Letter cp - Antibiotic Education cp - Prescription Opioid Use cp - Work release form vc1 Prescriptions: - Pyridium 200 mg Oral Tablet - take 1 tablet by ORAL route every 8 hours for 2 days; 6 tablet; Refills: 0, cp Product Selection Permitted - Zofran 4 mg Oral Tablet - take 1 tablet by ORAL route every 12 hours As needed; 20 tablet; Refills: 0, cp Product Selection Permitted - cefpodoxime 200 mg Oral Tablet - take 1 tablet by ORAL route every 12 hours for 7 days with food; 14 tablet; cp Refills: 0, Product Selection Permitted Signatures: Dispatcher [employer] EDNM Bernardino Duran PA PA cp Adrianne Giraldo RN RN vc1 Connie Ramesh RN RN [phone] Ray Bowles MD MD rt Corrections: (The following items were deleted from the chart) 01:32 01:31 Acute cystitis cp cp
[2022-11-07] MEDS ORDERED: CEFTRIAXONE 1000 MG/VIAL ONE (01:49)
[2022-11-07] MEDS ORDERED: NA CHLORIDE 0.9% 50 ML ONE (01:50)
[2022-11-07 03:21] VITALS: TEMP 97.9
[2022-11-07 03:22] VITALS: BP 109/64; O2SAT 100
--- NOTE | 2022-11-07 19:44 | RAD REPORT ---
EXAM DESCRIPTION: CT - Abdomen Pelvis W Contrast - 11/07/2022 1:29 am CLINICAL HISTORY: The patient is 22 years old and is Female; lower abdomen pain TECHNIQUE: Axial computed tomography images of the abdomen and pelvis with intravenous contrast. S agittal and coronal reformatted images were created and reviewed. This CT exam was performed using one or more of the following dose reduction techniques: automated exposure control, adjustment of t he mA and/or kV according to patient size, and/or use of iterative reconstruction technique. COMPARISON: No relevant prior studies available. FINDINGS: Lung bases: Unremarkable. No mass. No consolidation. ABDOMEN: Liver: Unremarkable. No mass. Gallbladder and bile ducts: Unremarkable. No calcified stones. No ductal dilation. Pancreas: Unremarkable. No mass. No ductal dilation. Spleen: Unremarkable. No splenomegaly. Adrenals: Unremarkable. No mass. Kidneys and ureters: Unremarkable. No solid mass. No hydronephrosis. Stomach and bowel: Unremarkable. No obstruction. No mucosal thickening. PELVIS: Appendix: The appendix is normal. Bladder: There may be mild diffuse bladder wall thickening, but the bladder is relatively nondist ended limiting evaluation. Reproductive: 2.5 cm simple right ovarian cyst. No follow-up imaging is recommended. ABDOMEN and PELVIS: Intraperitoneal space: Unremarkable. No free air. No significant fluid collection. Bones/joints: Bilateral pars defects at L5. No acute fracture. No dislocation. Soft tissues: Unremarkable. Vasculature: Unremarkable. No abdominal aortic aneurysm. Lymph nodes: Unremarkable. No enlarged lymph nodes. IMPRESSION: 1. There may be mild diffuse bladder wall thickening, but the bladder is relatively no ndistended limiting evaluation. Correlate with any concern for cystitis. 2. The appendix is normal. Electronically signed by: Jayden Dumont MD 11/07/2022 1:09 AM CDT Due to temporary technical issues with the PACS/Fluency reporting system, reports are being signed by the in house radiologists without review as a courtesy to insure prompt reporting. The interpreting radiologist is fully responsible for the content of the report.
== END 2022-11-07 01:59 | disposition home or self-care (01) ==
LOC: ER 22:02
DX: N39.0 Urinary tract infection, site not specified (principal)
CPT/HCPCS: 96361; 85025; 81001; 36415; 81025; 83690; 80053; 74177; 96375; 96374; 99284; Q9967; J2405; J7030; J0696

== ENCOUNTER 2022-11-08 15:07 | Emergency (ER) | payer OTHER ==
--- OUTSIDE RECORDS SUMMARY | 2022-11-08 15:17 | XMS REPORT | Continuity of Care Document ---
:2000 Author Organization [facility] [place] t Address [address] [place] [address] [place] [id number] Care Team Providers Name Role Phone Katerin Rider Primary Care Physician [phone] MAEGAN GOFF Attending Clinician Unavailable MAEGAN GOFF Attending Clinician Unavailable ROSEMARIE MCCORMACK Attending Clinician Unavailable Rosemarie Mccormack MD Attending Clinician Unknown, Attending Attending Clinician Unavailable KATERIN SHIPLEY Attending Clinician Unavailable Katerin Rider Attending Clinician [phone] GERI CHANDLER Attending Clinician Unavailable Geri Chandler CNM Attending Clinician Doctor Unassigned, [place] Attending Clinician Unavailable QUINTIN JASSO Attending Clinician Unavailable Quintin Cerrato Attending Clinician Nitesh Chaney Attending Clinician LANIE MURDOCK Attending Clinician Unavailable Lanie Murdock DPM Attending Clinician [phone] NITESH RAMÍREZ Attending Clinician Unavailable FRANSISCO SANTANA Attending Clinician Unavailable CORRIE GALLEGO Attending Clinician Unavailable Corrie Fam Attending Clinician SARAH SHEPHERD Attending Clinician Unavailable José Armenta MD Attending Clinician JOSÉ ARMENTA Attending Clinician Unavailable JOSÉ ARMENTA Attending Clinician Unavailable REMA HERRERA Attending Clinician Unavailable Rema Herrera DO Attending Clinician Sharon TOLBERT, Ti Sanches Attending Clinician Glenn PIMENTEL, Maegan Attending Clinician Lalito Torres MD Attending Clinician Lizandro Davenport MD Attending Clinician TI HERRERA Attending Clinician Unavailable Ultrasound, AngLuisasteph Attending Clinician Unavailable Milad PIMENTEL, Ponce Woodard Attending Clinician [phone] PONCE STINSON Attending Clinician Unavailable Mahesh PIMENTEL, Glo Schmitz Attending Clinician GLO ARAGON Attending Clinician Unavailable GENEVIEVE WHITE Attending Clinician Unavailable GENEVIEVE WHITE Attending Clinician Unavailable Genevieve White MD Attending Clinician Lab, [facility] Attending Clinician Unavailable ADELINA AZAR Attending Clinician Unavailable [facility]ending Clinician Nehal RN, Daisy Pierre Attending Clinician Unavailable Eduardo Hoang Attending Clinician EDUARDO NEW Attending Clinician Unavailable Ultrasound, Jane [facility] Attending Clinician Unavailable Syed Leary MD Attending Clinician 1, [facility] Attending Clinician Unavailable Lab, [facility] Attending Clinician Unavailable Karena MSN, Mary Villalpando Attending Clinician Lab, [facility] Attending Clinician Unavailable UNKNOWN, ATTENDING Attending Clinician Unavailable MAEGAN GOFF Admitting Clinician Unavailable GENEVIEVE WHITE Admitting Clinician Unavailable Maegan Goff MD Admitting Clinician Genevieve White MD Admitting Clinician Payers Payer Name Policy Type Policy Number Effective Date Expiration Date Shalini lewis [facility] [id number] 2020 00:00:00 Problems Condition Condition Condition Status Onset Resolution Last Treating Co mments Source Name Details Category Date Date Treatment Clinician Date Encounter Encounter Disease Active Uni vers for other for other 1-10 ity of general general 00:00: [place] counseling counseling 00 Me dical or advice or advice Bran ch on on contracept contracept ion ion Chorioamni Chorioamni Disease Active 2020-05 U jomar onitis onitis - ity of 00:00: [place] [facility] Anemia, Anemia, Disease Active 2020-05 Univers - it y of 00:: [place] [facility] Thrombocyt Thrombocyt Disease Active 2020-05 U jomar openia openia 06-21 ity of 00:: [place] [facility] Thrombocyt Thrombocyt Disease Active 2020-05 U jomar openia openia 06-21 ity of 00:00: [place] [facility] Obesity Obesity Disease Active 2020-05 Univers (BMI (BMI 1-25 ity of 30-39.9) 30-39.9) 00:00: [place] [facility] Susceptibl Susceptibl Disease Active U jomar e to e to 5-12 ity of varicella varicella 00:00: [place] (non-immun (non-immun 00 Me dical e), e), Branch currently currently History of History of Disease Active U jomar anxiety anxiety 5-06 ity of 00:00: [place] [facility] History of History of Disease Active U jomar depression depression 5-06 it y of 00:00: [place] [facility] Allergies, Adverse Reactions, Alerts Allergy Allergy Status Severity Reaction(s) Onset Inactive Treating Comm ents Source Name Type Date Date Clinician Jose Propensi Active Hives Univers ty to 6-13 ity of adverse 00:00: [place] reaction 00 Medical s Branch JOSE DRUG Active Hives Univers INGREDI 6-13 ity of 00:00: [place] [id number] Medical Branch Social History Social Habit Start Date Stop Date Quantity Comments Source Exposure to 2022-10-26 2022-11-05 Not sure [facility] SARS-CoV-2 00:00:00 12:29:00 [facility] (event) Branch Alcohol intake 2022-11-05 2022-11-05 Ex-drinker [facility] 00:00:00 00:00:00 (finding) [facility] Branch Tobacco use and 2022-02-07 2022-02-07 Smokeless tobacco Un iversity of exposure 00:00:00 00:00:00 non-user [facility] Sex Assigned At [birth year] Universit y of 00:00:00 00:00:00 [facility] Smoking Status Start Date Stop Date Source Never smoked tobacco [facility] Medications Ordered Filled Start Stop Current Ordering Indication Dosage Frequency Signature Comments Components Source Medication Medication Date Date Medication? Clinician (SIG) Name Name ondansetron Yes [id number] 4mg Take 1 Univers 4 mg 6-13 tablet by ity of disintegrat 00:00: mouth [place] ing tablet 00 every 8 Medica l (eight) Branch hours as needed for Nausea and Vomiting (N/V). ondansetron Yes [id number] 4mg Take 1 Univers 4 mg 6-13 tablet by ity of disintegrat 00:00: mouth [place] ing tablet 00 every 8 Medica l (eight) Branch hours as needed for Nausea and Vomiting (N/V). ondansetron Yes [id number] 4mg Take 1 Univers 4 mg 6-13 tablet by ity of disintegrat 00:00: mouth [place] ing tablet 00 every 8 Medica l (eight) Branch hours as needed for Nausea and Vomiting (N/V). ondansetron Yes [id number] 4mg Take 1 Univers 4 mg 6-13 tablet by ity of disintegrat 00:00: mouth [place] ing tablet 00 every 8 Medica l (eight) Branch hours as needed for Nausea and Vomiting (N/V). dicyclomine 2022- Yes [id number] 10mg Take 1 Univers 10 mg 6-13 06-21 capsule by ity of capsule 00:00: 04:59 mouth 4 [place] 00 :00 (four) Medical times Branch daily for 7 days. dicyclomine 2022- Yes [id number] 10mg Take 1 Univers 10 mg 6-13 06-21 capsule by ity of capsule 00:00: 04:59 mouth 4 [place] 00 :00 (four) Medical times Branch daily for 7 days. dicyclomine 2022- Yes [id number] 10mg Take 1 Univers 10 mg 6-13 06-21 capsule by ity of capsule 00:00: 04:59 mouth 4 [place] 00 :00 (four) Medical times [place] daily for 7 days. dicyclomine 2022- Yes [id number] 10mg Take 1 Univers 10 mg 11-05 capsule by ity of capsule 00:00: 04:59 mouth 4 [place] 00 :00 (four) Medical times [place] daily for 7 days. predniSONE 2022- Yes [id number] 40mg Take 2 Univers 20 mg 08-21- tablets by ity of tablet 00:00: 04:59 mouth in [place] 00 :00 the Medical morning Branch for 5 days. medroxyPROG 2022- No [id number] 150mg Univers ESTERone 02-07- ity of (DEPO-PROVE 19:30: 19:29 [facility]) syringe 00 :00 Medical 150 mg Branch medroxyPROG 2022- No [id number] 150mg 150 mg, Univers ESTERone 02-07 [facility] ity of (DEPO-PROVE 19:30: 19:29 [facility]) syringe 00 :00 [id number], Med ical 150 mg 4 doses, Branch First dose on [place] 02/07/22 at 1430, Last dose on [place] 10/17/22 at 1430, Routine medroxyPROG 2022- No [id number] 150mg Univers ESTERone 02-07- ity of (DEPO-PROVE 19:30: 19:29 [facility]) syringe 00 :00 Medical 150 mg Branch medroxyPROG 2022- No [id number] 150mg 150 mg, Univers ESTERone 02-07 Intramuscu ity of (DEPO-PROVE 19:30: 19:29 [facility]) syringe 00 :00 [id number], Med ical 150 mg 4 doses, Branch First dose on [place] 02/07/22 at 1430, Last dose on [place] 10/17/22 at 1430, Routine medroxyPROG 2022- No [id number] 150mg Univers ESTERone 02-07- ity of (DEPO-PROVE 19:30: 19:29 [facility]) syringe 00 :00 Medical 150 mg Branch medroxyPROG 2022- No [id number] 150mg Univers ESTERone 9-15 08-17 ity of (DEPO-PROVE 19:30: 19:29 [place] [facility]) syringe 00 :00 Medical 150 mg Branch medroxyPROG 2022-0 2023- No [id number] 150mg Univers ESTERone 9-15 08-17 ity of (DEPO-PROVE 19:30: 19:29 [place] [facility]) syringe 00 :00 Medical 150 mg Branch medroxyPROG 2022-0 2023- No [id number] 150mg Univers ESTERone 9-15 08-17 ity of (DEPO-PROVE 19:30: 19:29 [place] [facility]) syringe 00 :00 Medical 150 mg Branch medroxyPROG 2022-0 2023- No [id number] 150mg Univers ESTERone 9-15 08-17 ity of (DEPO-PROVE 19:30: 19:29 [place] [facility]) syringe 00 :00 Medical 150 mg Branch medroxyPROG 2022-0 2023- No [id number] 150mg Univers ESTERone 9-15 04-08 ity of (DEPO-PROVE 19:30: 20:10 [place] [facility]) syringe 00 :11 Medical 150 mg Branch medroxyPROG 2022-0 2023- No [id number] 150mg Univers ESTERone 9-15 04-08 ity of (DEPO-PROVE 19:30: 20:10 [place] [facility]) syringe 00 :11 Medical 150 mg Branch medroxyPROG 2022-0 2- No [id number] 150mg Univers ESTERone 9-15 09-15 ity of (DEPO-PROVE 19:15: 19:15 [place] RA) 00 :47 Medical injection Branch 150 mg medroxyPROG 2022-0 2022- No [id number] 150mg Univers ESTERone 9-15 09-15 ity of (DEPO-PROVE 19:15: 19:15 [place] RA) 00 :47 Medical injection Branch 150 mg ciclopirox 2022-0 Yes [id number] Apply to Univers 8 % 7-08 area(s) at ity of solution 00:00: bedtime. [place] 00 Apply to Medical fungal Branch toenails once daily. Every 7 days please file toenails with nail file and apply rubbing alcohol. ciclopirox 2022-0 Yes [id number] Apply to Univers 8 % 7-08 area(s) at ity of solution 00:00: bedtime. [place] 00 Apply to Medical fungal Branch toenails once daily. Every 7 days please file toenails with nail file and apply rubbing alcohol. ciclopirox 2022-0 Yes [id number] Apply to Univers 8 % 7-08 area(s) at ity of solution 00:00: bedtime. [place] 00 Apply to Medical fungal Branch toenails once daily. Every 7 days please file toenails with nail file and apply rubbing alcohol. ciclopirox 2022-0 Yes [id number] Apply to Univers 8 % 7-08 area(s) at ity of solution 00:00: bedtime. [place] 00 Apply to Medical fungal Branch toenails once daily. Every 7 days please file toenails with nail file and apply rubbing alcohol. ciclopirox 2022-0 Yes [id number] Apply to Univers 8 % 7-08 area(s) at ity of solution 00:00: bedtime. 00 Apply to Medical fungal Branch toenails once daily. Every 7 days please file toenails with nail file and apply rubbing alcohol. ciclopirox 2022-0 Yes [id number] Apply to Univers 8 % 7-08 area(s) at ity of solution 00:00: bedtime. 00 Apply to Medical fungal Branch toenails once daily. Every 7 days please file toenails with nail file and apply rubbing alcohol. ciclopirox 2022-0 Yes [id number] Apply to Univers 8 % 7-08 area(s) at ity of solution 00:00: bedtime. 00 Apply to Medical fungal Branch toenails once daily. Every 7 days please file toenails with nail file and apply rubbing alcohol. ciclopirox 2022-0 2023- No [id number] Apply to Univers 8 % 7-08 04-06 area(s) at ity of solution 00:00: 00:00 [place] :[place] Apply to Medical fungal Branch toenails once daily. Every 7 days please file toenails with nail file and apply rubbing alcohol. ciclopirox 2022-0 2023- No [id number] Apply to Univers 8 % 7-08 04-06 area(s) at ity of solution 00:00: 00:00 [place] :00 Apply to Medical fungal Branch toenails once daily. Every 7 days please file toenails with nail file and apply rubbing alcohol. norgestimat 2021- No [id number] 1{tbl} Take 1 Univers e-ethinyl 6-15 09-15 tablet by ity of estradioL 00:00: 00:00 mouth [place] 0.18/0.215/ 00 :00 daily. Medica l 0.25 mg-35 Branch mcg (28) tablet norgestimat 2021- No [id number] 1{tbl} Take 1 Univers e-ethinyl 6-15 09-15 tablet by ity of estradioL 00:00: 00:00 mouth [place] 0.18/0.215/ 00 :00 daily. Medica l 0.25 mg-35 Branch mcg (28) tablet Immunizations Ordered Immunization Filled Immunization Date Status Commen ts Source Name Name Varicella 2021-04-22 Completed University of (varivax)(chicken 00:00:00 [place] M edical pox) Branch Influenza Virus 2021-04-22 [...] Universit y of Vaccine Quad IM, 00:00:00 [place] Me dical Preserv and ABX Free Bran ch 6 MO-64 YRS Varicella 2021-04-22 Completed University of (varivax)(chicken 00:00:00 [place] M edical pox) Branch Influenza Virus 2021-04-22 Completed Universit y of Vaccine Quad IM, 00:00:00 [place] Me dical Preserv and ABX Free Bran [...] YRS TDAP 2021-02-20 Completed University of 00:00:00 [facility] TDAP 2021-02-20 Completed University of 00:00:00 [facility] TDAP 2021-02-20 Completed University of 00:00:00 [facility] TDAP 2021-02-20 Completed University of 00:00:00 [facility] TDAP 2021-02-20 Completed University of 00:00:00 [facility] TDAP 2021-02-20 Completed University of 00:00:00 [facility] TDAP 2021-02-20 Completed University of 00:00:00 [facility] TDAP 2021-02-20 Completed University of 00:00:00 [facility] TDAP 2021-02-20 Completed University of 00:00:00 [facility] TDAP 2021-02-20 Completed University of 00:00:00 [facility] TDAP 2021-02-20 Completed University of 00:00:00 [facility] TDAP 2021-02-20 Completed University of 00:00:00 [facility] TDAP 2021-02-20 Completed University of 00:00:00 [facility] TDAP 2021-02-20 Completed University of 00:00:00 [facility] TDAP 2021-02-20 Completed University of 00:00:00 [facility] TDAP 2021-02-20 Completed University of 00:00:00 [facility] Meningococcal 2013-10-05 Completed University of Polysaccharide 00:00:00 [place] Medi mi (groups A, C, Y and Branc h W-135) conjugate vaccine (MCV4P) TDAP 2013-10-05 Completed University of 00:00:00 [facility] Varicella 2013-10-05 Completed University of (varivax)(chicken 00:00:00 [place] M edical pox) Branch Meningococcal 2013-10-05 Completed University of Polysaccharide 00:00:00 [place] Medi mi (groups A, C, Y and Branc h W-135) conjugate vaccine (MCV4P) TDAP 2013-10-05 Completed University of 00:00:00 [facility] Varicella 2013-10-05 Completed University of (varivax)(chicken 00:00:00 [place] M edical pox) Branch Meningococcal 2013-10-05 Completed University of Polysaccharide 00:00:00 [place] Medi mi (groups A, C, Y and Branc h W-135) conjugate vaccine (MCV4P) TDAP 2013-10-05 Completed University of 00:00:00 [facility] Varicella 2013-10-05 Completed University of (varivax)(chicken 00:00:00 [place] M edical pox) Branch Meningococcal 2013-10-05 Completed University of Polysaccharide 00:00:00 [place] Medi mi (groups A, C, Y and Branc h W-135) conjugate vaccine (MCV4P) TDAP 2013-10-05 Completed University of 00:00:00 [facility] Varicella 2013-10-05 Completed University of (varivax)(chicken 00:00:00 [place] M edical pox) Branch Meningococcal 2013-10-05 Completed University of Polysaccharide 00:00:00 [place] Medi mi (groups A, C, Y and Branc h W-135) conjugate vaccine (MCV4P) TDAP 2013-10-05 Completed University of 00:00:00 [facility] Varicella 2013-10-05 Completed University of (varivax)(chicken 00:00:00 [place] M edical pox) Branch Meningococcal 2013-10-05 Completed University of Polysaccharide 00:00:00 [place] Medi mi (groups A, C, Y and Branc h W-135) conjugate vaccine (MCV4P) TDAP 2013-10-05 Completed University of 00:00:00 [facility] Varicella 2013-10-05 Completed University of (varivax)(chicken 00:00:00 [place] M edical pox) Branch Meningococcal 2013-10-05 Completed University of Polysaccharide 00:00:00 [place] Medi mi (groups A, C, Y and Branc h W-135) conjugate vaccine (MCV4P) TDAP 2013-10-05 Completed University of 00:00:00 [facility] Varicella 2013-10-05 Completed University of (varivax)(chicken 00:00:00 [place] M edical pox) Branch Meningococcal 2013-10-05 Completed University of Polysaccharide 00:00:00 [place] Medi mi (groups A, C, Y and Branc h W-135) conjugate vaccine (MCV4P) TDAP 2013-10-05 Completed University of 00:00:00 [facility] Varicella 2013-10-05 Completed University of (varivax)(chicken 00:00:00 [place] M edical pox) Branch Meningococcal 2013-10-05 Completed University of Polysaccharide 00:00:00 [place] Medi mi (groups A, C, Y and Branc h W-135) conjugate vaccine (MCV4P) TDAP 2013-10-05 Completed University of 00:00:00 [facility] Varicella 2013-10-05 Completed University of (varivax)(chicken 00:00:00 [place] M edical pox) Branch DTaP, Unspecified 2006-02-27 Completed Univers ity of Formulation 00:00:00 [facility] HEPATITIS A 2006-02-27 Completed University of 00:00:00 [facility] MMR 2006-02-27 Completed University of 00:00:00 [facility] IPV 2006-02-27 Completed University of 00:00:00 [facility] DTaP, Unspecified 2006-02-27 Completed Univers ity of Formulation 00:00:00 [facility] HEPATITIS A 2006-02-27 Completed University of 00:00:00 [facility] MMR 2006-02-27 Completed University of 00:00:00 [facility] IPV 2006-02-27 Completed University of 00:00:00 [...] 2006-02-27 Completed Univers ity of Formulation 00:00:00 [place] [facility] HEPATITIS A 2006-02-27 Completed University [...] Branch IPV 2006-02-27 Completed University of 00:00:00 [place] [facility] DTaP, Unspecified 2006-02-27 Completed Univers ity of Formulation 00:00:00 [place] [facility] HEPATITIS A 2006-02-27 Completed University [...] Branch MMR 2006-02-27 Completed University of 00:00:00 [facility] IPV 2006-02-27 Completed University of 00:00:00 [facility] HEPATITIS A 2005-05-29 Completed University of 00:00:00 [facility] Pneumococcal 7 2005-05-29 Completed University of Conjugate, PCV7 00:00:00 [place] Med ical (Prevnar7) [place] HEPATITIS A 2005-05-29 Completed University of 00:00:00 [facility] Pneumococcal 7 2005-05-29 Completed University of Conjugate, PCV7 00:00:00 [place] Med ical (Prevnar7) Branch HEPATITIS A 2005-05-29 Completed University of 00:00:00 [facility] Pneumococcal 7 2005-05-29 Completed University of Conjugate, PCV7 00:00:00 [place] [facility] ical (Prevnar7) [place] HEPATITIS A 2005-05-29 Completed University of 00:00:00 [facility] Pneumococcal 7 2005-05-29 Completed University of Conjugate, PCV7 00:00:00 [place] Med ical (Prevnar7) [place] HEPATITIS A 2005-05-29 Completed University of 00:00:00 [facility] Pneumococcal 7 2005-05-29 Completed University of Conjugate, PCV7 00:00:00 [place] Med ical (Prevnar7) [place] HEPATITIS A 2005-05-29 Completed University of 00:00:00 [facility] Pneumococcal 7 2005-05-29 Completed University of Conjugate, PCV7 00:00:00 [place] [facility] ical (Prevnar7) [place] HEPATITIS A 2005-05-29 Completed University of 00:00:00 [facility] Pneumococcal 7 2005-05-29 Completed University of Conjugate, PCV7 00:00:00 [place] Med ical (Prevnar7) [place] HEPATITIS A 2005-05-29 Completed University of 00:00:00 [facility] Pneumococcal 7 2005-05-29 Completed University of Conjugate, PCV7 00:00:00 [place] Med ical (Prevnar7) [place] HEPATITIS A 2005-05-29 Completed University of 00:00:00 [facility] Pneumococcal 7 2005-05-29 Completed University of Conjugate, PCV7 00:00:00 [place] [facility] ical (Prevnar7) [place] DTaP, Unspecified 2003-09-13 Completed Univers ity of Formulation 00:00:00 [facility] HIB 4 Dose Schedule 2003-09-13 Completed Unive rsity of 00:00:00 [facility] MMR 2003-09-13 Completed University of 00:00:00 [facility] IPV 2003-09-13 Completed University of 00:00:00 [facility] Varicella 2003-09-13 Completed University of (varivax)(chicken 00:00:00 [place] M edical pox) Branch DTaP, Unspecified 2003-09-13 Completed Univers ity of Formulation 00:00:00 [facility] HIB 4 Dose Schedule 2003-09-13 Completed Unive rsity of 00:00:00 [facility] MMR 2003-09-13 Completed University of 00:00:00 [facility] IPV 2003-09-13 Completed University of 00:00:00 [facility] Varicella 2003-09-13 Completed University of (varivax)(chicken 00:00:00 [place] edical pox) Branch DTaP, Unspecified 2003-09-13 Completed Univers ity of Formulation 00:00:00 [facility] HIB 4 Dose Schedule 2003-09-13 Completed Unive rsity of 00:00:00 [facility] MMR 2003-09-13 Completed University of 00:00:00 [facility] IPV 2003-09-13 Completed University of 00:00:00 [facility] Varicella 2003-09-13 Completed University of (varivax)(chicken 00:00:00 [place] M edical pox) Branch DTaP, Unspecified 2003-09-13 Completed Univers ity of Formulation 00:00:00 [facility] HIB 4 Dose Schedule 2003-09-13 Completed Unive rsity of 00:00:00 [facility] MMR 2003-09-13 Completed University of 00:00:00 [facility] IPV 2003-09-13 Completed University of 00:00:00 [facility] Varicella 2003-09-13 Completed University of (varivax)(chicken 00:00:00 [place] M edical pox) Branch DTaP, Unspecified 2003-09-13 Completed Univers ity of Formulation 00:00:00 [facility] HIB 4 Dose Schedule 2003-09-13 Completed Unive rsity of 00:00:00 [facility] MMR 2003-09-13 Completed University of 00:00:00 [facility] IPV 2003-09-13 Completed University of 00:00:00 [facility] Varicella 2003-09-13 Completed University of (varivax)(chicken 00:00:00 [place] M edical pox) Branch DTaP, Unspecified 2003-09-13 Completed Univers ity of Formulation 00:00:00 [facility] HIB 4 Dose Schedule 2003-09-13 Completed Unive rsity of 00:00:00 [facility] MMR 2003-09-13 Completed University of 00:00:00 [facility] IPV 2003-09-13 Completed University of 00:00:00 [facility] Varicella 2003-09-13 Completed University of (varivax)(chicken 00:00:00 [place] M edical pox) Branch DTaP, Unspecified 2003-09-13 Completed Univers ity of Formulation 00:00:00 [facility] HIB 4 Dose Schedule 2003-09-13 Completed Unive rsity of 00:00:00 [facility] MMR 2003-09-13 Completed University of 00:00:00 [facility] IPV 2003-09-13 Completed University of 00:00:00 [facility] Varicella 2003-09-13 Completed University of (varivax)(chicken 00:00:00 [place] [facility] DTaP, Unspecified 2003-09-13 Completed Univers ity of Formulation 00:00:00 [facility] HIB 4 Dose Schedule 2003-09-13 Completed Unive rsity of 00:00:00 [facility] MMR 2003-09-13 Completed University of 00:00:00 [facility] IPV 2003-09-13 Completed University of 00:00:00 [facility] Varicella 2003-09-13 Completed University of (varivax)(chicken 00:00:00 [place] [facility]ox[facility] DTaP, Unspecified 2003-09-13 Completed Univers ity of Formulation 00:00:00 [facility] HIB 4 Dose Schedule 2003-09-13 Completed Unive rsity of 00:00:00 [facility] MMR 2003-09-13 Completed University of 00:00:00 [facility] IPV 2003-09-13 Completed University of 00:00:00 [facility] Varicella 2003-09-13 Completed University of (varivax)(chicken 00:00:00 [place] [facility] Hep B, Adol or Pedi 2003-04-28 Completed Unive rsity of Dosage 00:00:00 [facility] Hep B, Adol or Pedi 2003-04-28 Completed Unive rsity of Dosage 00:00:00 [facility] Hep B, Adol or Pedi 2003-04-28 Completed Unive rsity of Dosage 00:00:00 [facility] Hep B, Adol or Pedi 2003-04-28 Completed Unive rsity of Dosage 00:00:00 [facility] Hep B, Adol or Pedi 2003-04-28 Completed Unive rsity of Dosage 00:00:00 [facility] Hep B, Adol or Pedi 2003-04-28 Completed Unive rsity of Dosage 00:00:00 [facility] Hep B, Adol or Pedi 2003-04-28 Completed Unive rsity of Dosage 00:00:00 [facility] Hep B, Adol or Pedi 2003-04-28 Completed Unive rsity of Dosage 00:00:00 [facility] Hep B, Adol or Pedi 2003-04-28 Completed Unive rsity of Dosage 00:00:00 [facility] DTaP, Unspecified 2002-06-29 Completed Univers ity of Formulation 00:00:00 [facility] HIB 4 Dose Schedule 2002-06-29 Completed Unive rsity of 00:00:00 [facility] Pneumococcal 7 2002-06-29 Completed University of Conjugate, PCV7 00:00:00 [place] [facility] (Prevnar7) [facility] DTaP, Unspecified 2002-06-29 Completed Univers ity of Formulation 00:00:00 [facility] HIB 4 Dose Schedule 2002-06-29 Completed Unive rsity of 00:00:00 [facility] Pneumococcal 7 2002-06-29 Completed University of Conjugate, PCV7 00:00:00 [place] [facility] (Prevnar7) [facility] DTaP, Unspecified 2002-06-29 Completed Univers ity of Formulation 00:00:00 [facility] HIB 4 Dose Schedule 2002-06-29 Completed Unive rsity of 00:00:00 [facility] Pneumococcal 7 2002-06-29 Completed University of Conjugate, PCV7 00:00:00 [place] [facility] (Prevnar7) [facility] DTaP, Unspecified 2002-06-29 Completed Univers ity of Formulation 00:00:00 [facility] HIB 4 Dose Schedule 2002-06-29 Completed Unive rsity of 00:00:00 [facility] Pneumococcal 7 2002-06-29 Completed University of Conjugate, PCV7 00:00:00 [place] [facility] (Prevnar7) [facility] DTaP, Unspecified 2002-06-29 Completed Univers ity of Formulation 00:00:00 [facility] HIB 4 Dose Schedule 2002-06-29 Completed Unive rsity of 00:00:00 [facility] Pneumococcal 7 2002-06-29 Completed University of Conjugate, PCV7 00:00:00 [place] [facility] (Prevnar7) [facility] DTaP, Unspecified 2002-06-29 Completed Univers ity of Formulation 00:00:00 [facility] HIB 4 Dose Schedule 2002-06-29 Completed Unive rsity of 00:00:00 [facility] Pneumococcal 7 2002-06-29 Completed University of Conjugate, PCV7 00:00:00 [place] [facility] (Prevnar7) [facility] DTaP, Unspecified 2002-06-29 Completed Univers ity of Formulation 00:00:00 [facility] HIB 4 Dose Schedule 2002-06-29 Completed Unive rsity of 00:00:00 [facility] Pneumococcal 7 2002-06-29 Completed University of Conjugate, PCV7 00:00:00 [place] [facility] (Prevnar7) [facility] DTaP, Unspecified 2002-06-29 Completed Univers ity of Formulation 00:00:00 [facility] HIB 4 Dose Schedule 2002-06-29 Completed Unive rsity of 00:00:00 [facility] Pneumococcal 7 2002-06-29 Completed University of Conjugate, PCV7 00:00:00 [place] [facility] (Prevnar7) [facility] DTaP, Unspecified 2002-06-29 Completed Univers ity of Formulation 00:00:00 [facility] HIB 4 Dose Schedule 2002-06-29 Completed Unive rsity of 00:00:00 [facility] Pneumococcal 7 2002-06-29 Completed University of Conjugate, PCV7 00:00:00 [place] [facility] (Prevnar7) [facility] DTaP, Unspecified 2002-04-13 Completed Univers ity of Formulation 00:00:00 [facility] HIB 4 Dose Schedule 2002-04-13 Completed Unive rsity of 00:00:00 [facility] Pneumococcal 7 2002-04-13 Completed University of Conjugate, PCV7 00:00:00 [place] [facility] (Prevnar7) [facility] IPV 2002-04-13 Completed University of 00:00:00 [facility] DTaP, Unspecified 2002-04-13 Completed Univers ity of Formulation 00:00:00 [facility] HIB 4 Dose Schedule 2002-04-13 Completed Unive rsity of 00:00:00 [facility] Pneumococcal 7 2002-04-13 Completed University of Conjugate, PCV7 00:00:00 [place] [facility] (Prevnar7) [facility] IPV 2002-04-13 Completed University of 00:00:00 [facility] DTaP, Unspecified 2002-04-13 Completed Univers ity of Formulation 00:00:00 [facility] HIB 4 Dose Schedule 2002-04-13 Completed Unive rsity of 00:00:00 [facility] Pneumococcal 7 2002-04-13 Completed University of Conjugate, PCV7 00:00:00 [place] [facility] (Prevnar7) [facility] IPV 2002-04-13 Completed University of 00:00:00 [facility] DTaP, Unspecified 2002-04-13 Completed Univers ity of Formulation 00:00:00 [facility] HIB 4 Dose Schedule 2002-04-13 Completed Unive rsity of 00:00:00 [facility] Pneumococcal 7 2002-04-13 Completed University of Conjugate, PCV7 00:00:00 [place] [facility] (Prevnar7) [facility] IPV 2002-04-13 Completed University of 00:00:00 [facility] DTaP, Unspecified 2002-04-13 Completed Univers ity of Formulation 00:00:00 [facility] HIB 4 Dose Schedule 2002-04-13 Completed Unive rsity of 00:00:00 [facility] Pneumococcal 7 2002-04-13 Completed University of Conjugate, PCV7 00:00:00 [place] [facility] (Prevnar7) [facility] IPV 2002-04-13 Completed University of 00:00:00 [facility] DTaP, Unspecified 2002-04-13 Completed Univers ity of Formulation 00:00:00 [facility] HIB 4 Dose Schedule 2002-04-13 Completed Unive rsity of 00:00:00 [facility] Pneumococcal 7 2002-04-13 Completed University of Conjugate, PCV7 00:00:00 [place] [facility] (Prevnar7) [facility] IPV 2002-04-13 Completed University of 00:00:00 [facility] DTaP, Unspecified 2002-04-13 Completed Univers ity of Formulation 00:00:00 [facility] HIB 4 Dose Schedule 2002-04-13 Completed Unive rsity of 00:00:00 [facility] Pneumococcal 7 2002-04-13 Completed University of Conjugate, PCV7 00:00:00 [place] [facility] (Prevnar7) [facility] IPV 2002-04-13 Completed University of 00:00:00 [facility] DTaP, Unspecified 2002-04-13 Completed Univers ity of Formulation 00:00:00 [facility] HIB 4 Dose Schedule 2002-04-13 Completed Unive rsity of 00:00:00 [facility] Pneumococcal 7 2002-04-13 Completed University of Conjugate, PCV7 00:00:00 [place] [facility] (Prevnar7) [facility] IPV 2002-04-13 Completed University of 00:00:00 [facility] DTaP, Unspecified 2002-04-13 Completed Univers ity of Formulation 00:00:00 [facility] HIB 4 Dose Schedule 2002-04-13 Completed Unive rsity of 00:00:00 [facility] Pneumococcal 7 2002-04-13 Completed University of Conjugate, PCV7 00:00:00 [facility] ical (Prevnar7) Branch IPV 2002-04-13 Completed University of 00:00:00 [facility] DTaP, Unspecified 2002-02-16 Completed Univers ity of Formulation 00:00:00 [facility] Hep B, Adol or Pedi 2002-02-16 Completed Unive rsity of Dosage 00:00:00 [facility] HIB 4 Dose Schedule 2002-02-16 Completed Unive rsity of 00:00:00 [facility] Pneumococcal 7 2002-02-16 Completed University of Conjugate, PCV7 00:00:00 [facility] ical (Prevnar7) Branch IPV 2002-02-16 Completed University of 00:00:00 [facility] DTaP, Unspecified 2002-02-16 Completed Univers ity of Formulation 00:00:00 [facility] Hep B, Adol or Pedi 2002-02-16 Completed Unive rsity of Dosage 00:00:00 [facility] HIB 4 Dose Schedule 2002-02-16 Completed Unive rsity of 00:00:00 [facility] Pneumococcal 7 2002-02-16 Completed University of Conjugate, PCV7 00:00:00 [place] [facility] (Prevnar7) [facility] IPV 2002-02-16 Completed University of 00:00:00 [facility] DTaP, Unspecified 2002-02-16 Completed Univers ity of Formulation 00:00:00 [facility] Hep B, Adol or Pedi 2002-02-16 Completed Unive rsity of Dosage 00:00:00 [facility] HIB 4 Dose Schedule 2002-02-16 Completed Unive rsity of 00:00:00 [facility] Pneumococcal 7 2002-02-16 Completed University of Conjugate, PCV7 00:00:00 [place] [facility] (Prevnar7) [facility] IPV 2002-02-16 Completed University of 00:00:00 [facility] DTaP, Unspecified 2002-02-16 Completed Univers ity of Formulation 00:00:00 [facility] Hep B, Adol or Pedi 2002-02-16 Completed Unive rsity of Dosage 00:00:00 [facility] HIB 4 Dose Schedule 2002-02-16 Completed Unive rsity of 00:00:00 [facility] Pneumococcal 7 2002-02-16 Completed University of Conjugate, PCV7 00:00:00 [place] [facility] (Prevnar7) [facility] IPV 2002-02-16 Completed University of 00:00:00 [facility] DTaP, Unspecified 2002-02-16 Completed Univers ity of Formulation 00:00:00 [facility] Hep B, Adol or Pedi 2002-02-16 Completed Unive rsity of Dosage 00:00:00 [facility] HIB 4 Dose Schedule 2002-02-16 Completed Unive rsity of 00:00:00 [facility] Pneumococcal 7 2002-02-16 Completed University of Conjugate, PCV7 00:00:00 [place] [facility] (Prevnar7) [facility] IPV 2002-02-16 Completed University of 00:00:00 [facility] DTaP, Unspecified 2002-02-16 Completed Univers ity of Formulation 00:00:00 [facility] Hep B, Adol or Pedi 2002-02-16 Completed Unive rsity of Dosage 00:00:00 [facility] HIB 4 Dose Schedule 2002-02-16 Completed Unive rsity of 00:00:00 [facility] Pneumococcal 7 2002-02-16 Completed University of Conjugate, PCV7 00:00:00 [place] [facility] (Prevnar7) [facility] IPV 2002-02-16 Completed University of 00:00:00 [facility] DTaP, Unspecified 2002-02-16 Completed Univers ity of Formulation 00:00:00 [facility] Hep B, Adol or Pedi 2002-02-16 Completed Unive rsity of Dosage 00:00:00 [facility] HIB 4 Dose Schedule 2002-02-16 Completed Unive rsity of 00:00:00 [facility] Pneumococcal 7 2002-02-16 Completed University of Conjugate, PCV7 00:00:00 [place] [facility] (Prevnar7) [facility] IPV 2002-02-16 Completed University of 00:00:00 [facility] DTaP, Unspecified 2002-02-16 Completed Univers ity of Formulation 00:00:00 [facility] Hep B, Adol or Pedi 2002-02-16 Completed Unive rsity of Dosage 00:00:00 [facility] HIB 4 Dose Schedule 2002-02-16 Completed Unive rsity of 00:00:00 [facility] Pneumococcal 7 2002-02-16 Completed University of Conjugate, PCV7 00:00:00 [place] [facility] (Prevnar7) [facility] IPV 2002-02-16 Completed University of 00:00:00 [facility] DTaP, Unspecified 2002-02-16 Completed Univers ity of Formulation 00:00:00 [facility] Hep B, Adol or Pedi 2002-02-16 Completed Unive rsity of Dosage 00:00:00 [facility] HIB 4 Dose Schedule 2002-02-16 Completed Unive rsity of 00:00:00 [facility] Pneumococcal 7 2002-02-16 Completed University of Conjugate, PCV7 00:00:00 [place] [facility] (Prevnar7) [facility] IPV 2002-02-16 Completed University of 00:00:00 [facility] Hep B, Adol or Pedi 2001 Completed Unive rsity of Dosage 00:00:00 [facility] Hep B, Adol or Pedi 2001 Completed Unive rsity of Dosage 00:00:00 [facility] Hep B, Adol or Pedi 2001 Completed Unive rsity of Dosage 00:00:00 [facility] Hep B, Adol or Pedi 2001 Completed Unive rsity of Dosage 00:00:00 [facility] Hep B, Adol or Pedi 2001 Completed Unive rsity of Dosage 00:00:00 [facility] Hep B, Adol or Pedi 2001 Completed Unive rsity of Dosage 00:00:00 [facility] Hep B, Adol or Pedi 2001 Completed Unive rsity of Dosage 00:00:00 [facility] Hep B, Adol or Pedi 2001 Completed Unive rsity of Dosage 00:00:00 [facility] Hep B, Adol or Pedi 2001 Completed Unive rsity of Dosage 00:00:00 [facility] Vital Signs Vital Name Observation Time Observation Value Comments Source Systolic blood 2022-11-05 18:40:00 111 mm[Hg] Univer sity of pressure [facility] Diastolic blood 2022-11-05 18:40:00 73 mm[Hg] Unive rsity of pressure [facility] Heart rate 2022-11-05 18:40:00 83 /min Universi ty of [facility] Body temperature 2022-11-05 18:40:00 36.83 Dayan Univ ersity of [facility] Respiratory rate 2022-11-05 18:40:00 16 /min Univ ersity of [facility] Body weight 2022-11-05 18:40:00 94.802 kg Universi ty of [facility] BMI 2022-11-05 18:40:00 37.02 kg/m2 Universi ty of [facility] Oxygen saturation in 2022-11-05 18:40:00 98 /min University Arterial blood by [facility] Pulse oximetry Branch Systolic blood 2022-09-30 19:26:00 109 mm[Hg] Univer sity of pressure [facility] Diastolic blood 2022-09-30 19:26:00 73 mm[Hg] Unive rsity of pressure [facility] Heart rate 2022-09-30 19:26:00 92 /min Universi ty of [facility] Body temperature 2022-09-30 19:26:00 36.22 Dayan Univ ersity of [facility] Respiratory rate 2022-09-30 19:26:00 18 /min Univ ersity of [facility] Body height 2022-09-30 19:26:00 160 cm Universi ty of [facility] Body weight 2022-09-30 19:26:00 96.208 kg Universi ty of [facility] BMI 2022-09-30 19:26:00 37.57 kg/m2 Universi ty of [facility] Systolic blood 2022-08-29 18:06:00 114 mm[Hg] Univer sity of pressure [facility] Diastolic blood 2022-08-29 18:06:00 67 mm[Hg] Unive rsity of pressure [facility] Heart rate 2022-08-29 18:06:00 92 /min Universi ty of [facility] Body temperature 2022-08-29 18:06:00 36.56 Dayan Univ ersity of [facility] Respiratory rate 2022-08-29 18:06:00 18 /min Univ ersity of [facility] Body height 2022-08-29 18:06:00 160 cm Universi ty of [facility] Body weight 2022-08-29 18:06:00 95.165 kg Universi ty of [facility] BMI 2022-08-29 18:06:00 37.16 kg/m2 Universi ty of [facility] Systolic blood 2022-08-21 14:50:00 104 mm[Hg] Univer sity of pressure [facility] Diastolic blood 2022-08-21 14:50:00 67 mm[Hg] Unive rsity of pressure [facility] Heart rate 2022-08-21 14:50:00 84 /min Universi ty of [facility] Body temperature 2022-08-21 14:50:00 36.5 Dayan Univ ersity of [facility] Respiratory rate 2022-08-21 14:50:00 16 /min Univ ersity of [facility] Body height 2022-08-21 14:50:00 160 cm Universi ty of [facility] Body weight 2022-08-21 14:50:00 94.887 kg Universi ty of [facility] BMI 2022-08-21 14:50:00 37.06 kg/m2 Universi ty of [facility] Oxygen saturation in 2022-08-21 14:50:00 100 /min [facility] Arterial blood by [facility] Pulse oximetry Branch Systolic blood 2022-08-13 18:36:00 114 mm[Hg] Univer sity of pressure [facility] Diastolic blood 2022-08-13 18:36:00 70 mm[Hg] Unive rsity of pressure [facility] Heart rate 2022-08-13 18:36:00 87 /min [facility] [place] Body temperature 2022-08-13 18:36:00 37.22 Dayan Univ ersity of [facility] Respiratory rate 2022-08-13 18:36:00 20 /min [facility] Body height 2022-08-13 18:36:00 160 cm [facility] Body weight 2022-08-13 18:36:00 95.165 kg [facility] BMI 2022-08-13 18:36:00 37.16 kg/m2 [facility] Systolic blood 2022-02-07 18:51:00 116 mm[Hg] Univer sity of pressure [facility] Diastolic blood 2022-02-07 18:51:00 65 mm[Hg] Unive [facility] Heart rate 2022-02-07 18:51:00 110 /min [facility] Body temperature 2022-02-07 18:51:[address] [facility] Respiratory rate 2022-02-07 18:51:00 18 /min [facility] Body height 2022-02-07 18:51:00 160 cm [facility] Body weight 2022-02-07 18:51:00 85.9 kg [facility] BMI 2022-02-07 18:51:00 33.55 kg/m2 [facility] Procedures Procedure Date / Time Performing Clinician Source Performed POCT TEST 2022-11-05 19:18:00 Rosemarie Mccormack [facility] CBC WITH DIFF 2022-08-29 18:50:00 Geri Chandler [facility] GLYCOSYLATED HEMOGLOBIN 2022-08-29 18:50:00 Geri Chandler [facility] (A1C) [facility] HCV ANTIBODY 2022-08-29 18:50:00 Geri Chandler [facility] HIV 1/2 AG-AB WITH 2022-08-29 18:50:00 Geri Chandler [facility] SYPHILIS IGG/IGM 2022-08-29 18:50:00 Geri Chandler [facility] ASSIGNMENT OF BENEFITS 2022-08-29 17:51:46 Doctor Unassigned, No [facility] POCT SARS-COV-2 ANTIGEN 2022-08-21 15:14:00 Quintin Jasso [facility] (BINAX NOW) [facility] POCT MOLECULAR FLU 2022-08-21 15:01:00 Unknown, Attending Tanmay herbert [facility] DISCLOSURE AND CONSENT, 2022-08-13 05:01:00 Doctor Unassigned, N o University [facility] MEDICAL AND SURGICAL Name Medical [facility] PROCEDURES Encounters Start End Encounter Admission Attending Care Care Encounter Source Date/Time Date/Time Type Type Clinicians Facility Department ID 2021-04-19 Inpatient P MAEGAN GOFF [facility] [id number] [facility] 19:42[facility] [id number] Univers 12:45:39 it[facility] 2021-04-03 Outpatient P [facility] [id number] [facility]27 Emergency [facility] [id number] [facility] 2022-11-05 2022-11-05 [id number] Univers 13:40:00 14:26:30 ROSEMARIE [facility] 2022-11-05 2022-11-05 Urgent Rosemarie Mccormack [facility] [id number] Univers 13:40:00 14:26:30 Care Unknown, Attending [facility] [id number] [facility] [id number] Sanjiv as ALONSO?BLEA [id number] [address] MEDICAL OFFICE BUILDING 2022-09-30 2022-09-30 Outpatient R QUINTEN [facility] [id number] Univers 14:30:00 15:12:25 KATERIN garcia f [facility] 2022-09-30 2022-09-30 [facility] [id number] Univers 14:30:00 15:12:25 Visit Katerin Lee ADVERTISING ACCOUNT EXECUTIVE [id number] [facility] [id number] Sanjiv as MATERNAL [id number] Med ical & [address] 2022-08-30 2022-08-30 Outpatient R QUINTEN [facility] [id number] Univers 14:45:00 14:45:00 KATERIN lim [facility] 2022-08-29 2022-08-29 [id number] Univers 13:00:00 13:53:22 GERI itkaden [facility] 2022-08-29 2022-08-29 Office [facility] [id number] Univers 13:00:00 13:53:22 Visit Geri Villalpando ADVERTISING ACCOUNT EXECUTIVE [id number] i ty [facility] [id number] Sanjiv as MATERNAL [id number] [facility] & [address] 2022-08-29 2022-08-29 Orders Doctor SANJEEV [id number] Univers 00:00:00 00:00:00 Only Unassigned, YEIMY [id number] [facility] [place] [facility] [id number] Sanjiv as [id number] [address] 2022-08-21 2022-08-21 Outpatient R CHARLEY [facility] [id number] Univers 09:20:00 10:15:47 QUINTIN [facility] 2022-08-21 2022-08-21 Urgent Quintin Jasso [facility] [id number] Univers 09:20:00 10:15:47 Care Unknown, Attending [facility] [id number] [facility] [id number] Sanjiv as ALONSO?BLEA [id number] Ri cash [address] MEDICAL OFFICE BUILDING 2022-08-13 2022-08-13 Outpatient R QUINTEN [facility] [id number] Univers 13:30:00 14:12:48 KATERIN goldstein o carina [facility] 2022-08-13 2022-08-13 Office [facility] [id number] Univers 13:30:00 14:12:48 Visit Katerin Lee ADVERTISING ACCOUNT EXECUTIVE [id number] [facility] [id number] Sanjiv as MATERNAL [id number] [facility] & [address] 2022-08-13 2022-08-13 Outpatient R [facility] CENTER [id number] Univers 13:30:00 13:30:00 KATERIN ity o [facility] 2022-08-13 2022-08-13 Orders Doctor SANJEEV 1.2.840.114 [id number] Univers 00:00:00 00:00:00 Only Unassigned, YEIMY 350.1.13.10 ity of [place] [facility] 4.2.7.2.686 Sanjiv as [phone] [address] 2022-02-07 2022-02-07 Office Nitesh Ramírez KSJORY 1.2.840 .114 [id number] Univers 13:30:00 14:14:25 Visit Katerin Shipley ADVERTISING ACCOUNT EXECUTIVE 350.1.13. [address] [facility] 4.2.7.2.686 Sanjiv as MATERNAL [phone] [facility] CHILD [address] [place] [address] 2022-02-07 2022-02-07 Outpatient R QUINTEN [facility] [id number] Univers 13:30:00 14:14:25 KATERIN alonsoy o [facility] 2022-02-07 2022-02-07 Outpatient R QUINTEN [facility] [id number] Univers 13:30:00 13:30:00 KATERIN goldstein o [facility] 2022-01-30 2022-01-30 Refill Darrell KSJORY 1.2.840.114 [id number] Univers 00:00:00 00:00:00 Nitesh Lindquist ADVERTISING ACCOUNT EXECUTIVE 350.1.13.[address] [facility] 42.7.2.686 Sanjiv as MATERNAL [id number] [facility] CH[facility] [address] [place] [address] 2021-12-14 2021-12-14 Outpatient R COLLETTE [facility] [id number] Univers 13:00:00 13:23:55 LANIE ity [facility] 2021-12-14 2021-12-14 Office [facility] 1.2.906.226 [id number] Univers 13:00:00 13:23:55 Visit Lanie PRIMARY 350.1.13.10 it[place] [phone] [facility] [address] 2021-11-30 2021-11-30 Office [facility] 1.2.132.623 [id number] Univers 15:00:00 15:43:03 Visit Lanie PRIMARY 350.1.13.10 it[place] [id number] [address] 2021-11-30 2021-11-30 [facility] [id number] Univers 15:00:00 15:43:03 LANIE ity [facility] 2021-11-30 2021-11-30 [facility] [id number] Univers 15:00:00 15:00:00 LANIE ity [facility] 2021-11-30 2021-11-30 Orders Doctor SANJEEV 1.2.840.114 [id number] Univers 00:00:00 00:00:00 Only Unassigned, YEIMY 350.1.13.10 it[place] [facility] 4.2.7.2.686 Sanjiv as [id number] [address] 2021-11-15 2021-11-15 Outpatient Lexa RAMÍREZ [facility] [id number] Univers 13:30:00 13:30:00 ROSJOANANDA ity o f [facility] 2021-11-15 2021-11-15 Outpatient Lexa RAMÍREZ [facility] [id number] Univers 13:30:00 13:30:00 ROSHUNDA ity o f [facility] 2021-11-08 2021-11-08 Outpatient R MAX [facility] [id number] Univers 08:00:00 08:00:00 FRANSISCO ity [facility] 2021-11-07 2021-11-07 Outpatient R RAMÍREZ [facility] [id number] Univers 14:15:00 14:55:48 NITESH goldstein o [facility] 2021-11-07 2021-11-07 Office [facility] 1.2.840.114 [id number] Univers 14:15:00 14:55:48 Visit Kalyanifern R ADVERTISING ACCOUNT EXECUTIVE 350.1.13.[address] [facility] 4.2.7.2.686 Sanjiv as MATERNAL [id number] [facility] [address] [place] [address] 2021-11-05 2021-11-05 Outpatient R KEYSHAWN [facility] [id number] Univers 15:00:00 15:16:22 CORRIE goldstein [facility] 2021-11-05 2021-11-05 Urgent [facility] 1.2.840.114 [id number] Univers 15:00:00 15:16:22 Care [facility] 350.1.13.10 i ty of [place] 4.2.7.2.686 Sanjiv as ALONSO?BLEA [phone] [address] OFFICE BUILDING 2021-11-05 2021-11-05 Telephone [facility] 1.2.334.884 [id number] Univers 00:00:00 00:00:00 Kalyanifern R ADVERTISING ACCOUNT EXECUTIVE 350.1.13.[address] [facility] 4.2.7.2.686 Sanjiv as MATERNAL [phone] [facility] [address] [place] [address] 2021-10-04 2021-10-04 [facility] 1.2.840.114 [id number] Univers 14:00:00 14:43:57 Visit Kalyanifern R ADVERTISING ACCOUNT EXECUTIVE 350.1.13.[address] [facility] 4.2.7.2.686 Sanjiv as MATERNAL [id number] [facility] & [address] 2021-10-04 2021-10-04 Out[facility] [id number] Univers 14:00:00 14:43:57 ROSJOANANDA ity o [facility] 2021-10-04 2021-10-04 Outpatient R DARRELL [facility] [id number] Univers 14:00:00 14:00:00 NITESH lim [facility] 2021-10-04 2021-10-04 Orders Doctor SANJEEV 1.2.840.114 [id number] Univers 00:00:00 00:00:00 Only Unassigned, YEIMY 350.1.13.10 ity of [address]2.686 Sanjiv as [phone] [address] 2021-09-18 2021-09-18 Outpatient R DARRELL [facility] [id number] Univers 15:15:00 15:34:39 RITUCHAYOKwasi goldstein o [facility] 2021-09-18 2021-09-18 Office [facility] 1.2.840.114 [id number] Univers 15:15:00 15:34:39 Visit Nitesh Lindquist ADVERTISING ACCOUNT EXECUTIVE [facility].1.13.10 [facility] 4.2.7.2.686 Sanjiv as MATERNAL [id number] Med ical & CHILD [address] [place] [address] 2021-06-14 2021-06-14 Outpatient R JOAO [facility] [id number] Univers 09:30:00 09:30:00 SARAH goldstein [facility] 2021-06-04 2021-06-04 [facility] 1.2.154.429 [id number] Univers 13:15:00 14:21:44 Visit Katerin Lee ADVERTISING ACCOUNT EXECUTIVE 350.1.13.10 [place] [address].2.7.2.686 Sanjiv as MATERNAL [id number] [facility] ical & CHILD [address] [place] [address] 2021-06-04 2021-06-04 Outpatient R QUINTEN [facility] [id number] Univers 13:15:00 14:21:44 KATERIN garcia [facility] 2021-06-04 2021-06-04 [facility] [id number] Univers 13:15:00 13:15:00 KATERIN garcia [facility] 2021-06-042021-06-04 Outpatient R QUINTEN, [facility] [id number] Univers 13:15:00 13:15:00 KATERINKATRIN lim [facility] 2021-05-24 2021-05-24 Office THA Armenta 1.2.288.448 [id number] Univers 13:45:00 14:00:00 Visit José Lee [facility] 350.1.13.10 i ty of [facility] 4.2.7.2.[place] [id number] [facility] [address] 2021-05-24 2021-05-24 Outpatient R JOSÉ ARMENTA [facility] [id number] Univers 13:45:00 13:45:00 JOSÉ ARMENTA i ty of [facility] 2021-05-11 2021-05-11 Outpatient R QUINTEN, [facility] [id number] Univers 10:45:00 11:42:19 KATERIN garcia carina [facility] 2021-05-11 2021-05-11 Routine [facility]anthonyUN[facility] 1.2.054.013 [id number] Univers 10:45:00 11:42:19 Katerin Lee ADVERTISING ACCOUNT EXECUTIVE 350.1.13.[address] [facility] 4.2.7.2.686 Sanjiv as MATERNAL [phone] Med ical & CHILD [address] [place] [address] 2021-05-11 2021-05-11 Orders Doctor SANJEEV 1.2.840.114 [id number] Univers 00:00:00 00:00:00 Only Unassigned, YEIMY 350.1.13.10 [place] [facility] 4.2.7.2.686 Sanjiv as [phone] [address] 2021-04-24 2021-04-24 Emergency X [facility] ERT [id number] Univers 16:21:00 18:40:00 REMA goldstein [facility] 2021-04-24 2021-04-24 Emergency SharonUN[facility] 1.2.840.114 [id number] Univers 16:21:00 18:40:00 Rema CHEN 350.1.13.10 ity of [place] 4.2.7.2.686 [facility] [phone] [facility] [address] 2021-04-24 2021-04-24 Telephone SharonUNM [facility] 1.2.840.114 [id number] Univers 00:00:00 00:00:00 Ti Sanches ADVERTISING ACCOUNT EXECUTIVE 350.1.13.[address] [facility] 4.2.7.2.686 Sanjiv as MATERNAL [id number] [facility] [address] [place] [address] 2021-04-23 2021-04-23 Telephone QuintenUNM [facility] 1.2.840.114 [id number] Univers 00:00:00 00:00:00 Katerin Lee ADVERTISING ACCOUNT EXECUTIVE 350.1.13.[address] [facility] 4.2.7.2.686 Sanjiv as MATERNAL [id number] [facility] [address] 2021-04-19 2021-04-22 Inpatient P MAEGAN GOFF [facility] 1 [id number] Univers 19:42:00 13:29:00 MAEGAN GOFF kaden [facility] 2021-04-19 2021-04-22 [facility] SANJEEV Goff 1.2.840.114 [id number] Univers 19:42:00 13:29:00 Encounter Maegan GAFFNEY 350.1.13.10 ity [facility] 4.2.7.2.686 Sanjiv as [id number] [facility] [address] 2021-04-20 2021-04-20 Anesthesia Lalito Torres 1.2.840.114 [id number] Univers 07:27:00 23:59:00 Event Lizandro Davenport 350.1.13.10 ity [facility] 42.7.2.686 Sanjiv as [id number] [facility] [address] 2021-04-19 2021-04-19 Inpatient P MAEGAN GOFF [facility] 1 [id number] Univers 19:42:00 19:42:00 MAEGAN GOFF kaden [facility] 2021-04-16 2021-04-16 [facility] [id number] Univers 09:15:00 10:11:33 TI goldstein [facility] 2021-04-16 2021-04-16 Routine Sharon [facility] 1.2.085.898 [id number] Univers 09:09:48 10:11:33 Ti Verónica ADVERTISING ACCOUNT EXECUTIVE 350.1.13.10 i ty of Visit REGIONAL 4.2.7.2.686 Sanjiv as MATERNAL [id number] [facility] ical & CHILD 107 [facility] 2021-04-16 2021-04-16 Outpatient R SHARON [facility] [id number] Univers 09:15:00 09:15:00 TICELESTINO goldstein [facility] 2021-04-16 2021-04-16 Outpatient R SHARON [facility] [id number] Univers 09:15:00 09:15:00 TI goldstein [facility] 2021-04-16 2021-04-16 Outpatient R [facility] [id number] Univers 09:00:00 09:00:00 [facility] 2021-04-13 2021-04-13 Station Detective [facility]tras[facility] 1.2 .840.114 [id number] Univers 10:05:38 10:35:38 Visit BlakePonce butler Vance ADVERTISING ACCOUNT EXECUTIVE 350.1. 13.10 ity of [place]ION[place] 4.2.7.2.686 Sanjiv as MATERNAL [phone] [facility] & CHILD [address] [facility] 2021-04-13 2021-04-13 Outpatient P [facility] [id number] Univers 10:00:00 10:00:00 [facility] 2021-04-13 2021-04-13 Outpatient P MILAD [facility] [id number] Univers 10:00:00 10:00:00 [facility] 2021-04-12 2021-04-12 Office Glo Aragon [facility] 1.2.840.114 [id number] Univers 14:43:21 14:59:55 Visit [facility] 350.1.13.10 i ty of CL[place] [id number] [address] 2021-04-12 2021-04-12 Outpatient R GLO ARAGON [facility] [id number] Univers 14:30:00 14:59:55 ity of [facility] 2021-04-12 2021-04-12 Outpatient R GLO ARAGON [facility] [id number] Univers 14:30:00 14:30:00 [facility] 2021-04-12 2021-04-12 Outpatient R MAHESHGLO [facility] [id number] Univers 14:30:00 14:30:00 [facility] 2021-04-12 2021-04-12 Outpatient Lexa HERRERA [facility] [id number] Univers 09:00:00 10:08:06 TI goldstein [facility] 2021-04-12 2021-04-12 Outpatient Lexa HERRERA [facility] [id number] Univers 09:00:00 10:08:06 TI goldstein [facility] 2021-04-12 2021-04-12 Routine [facility]UN[facility] 1.2.564.806 [id number] Univers 08:50:10 10:08:06 Ti Sanches ADVERTISING ACCOUNT EXECUTIVE 350.1.13.10 i ty of Visit REGIONAL 4.2.7.2.686 Sanjiv as MATERNAL [id number] Med ical & CHILD [address] [place] [address] 2021-04-12 2021-04-12 Routine SharonUN[facility] 1.2.354.711 [id number] Univers 08:50:10 10:08:06 Ti N ADVERTISING ACCOUNT EXECUTIVE 350.1.13.10 i ty of Visit [facility] 4.2.7.2.686 Sanjiv as MATERNAL [id number] [facility] [address] [place] [address] 2021-04-12 2021-04-12 Outpatient Lexa HERRERA [facility] [id number] Univers 09:00:00 09:00:00 TI goldstein [facility] 2021-04-12 2021-04-12 Outpatient Lexa HERRERA [facility] [id number] Univers 08:45:00 08:45:00 TI goldstein [facility] 2021-04-12 2021-04-12 Outpatient Lexa HERRERA [facility] [id number] Univers 08:45:00 08:45:00 TI goldstein [facility] 2021-04-10 2021-04-10 [facility] [id number] Univers 14:15:00 14:56:53 TI goldstein [facility] 2021-04-10 2021-04-10 Routine [facility]UN[facility] 1.2.813.675 [id number] Univers 14:04:13 14:56:53 Ti N ADVERTISING ACCOUNT EXECUTIVE 350.1.13.10 i ty of Visit REGIONAL 4.2.7.2.686 Sanjiv as MATERNAL [id number] [facility] [address] [place] [address] 2021-04-10 2021-04-10 [facility] [id number] Univers 14:15:00 14:15:00 TI goldstein [facility] 2021-04-10 2021-04-10 Outpatient R [facility] [id number] Univers 14:00:00 14:00:00 angelita [facility] 2021-04-06 2021-04-06 Routine [facility]UN[facility] 1.2.670.604 [id number] Univers 12:45:01 14:50:27 Ti N ADVERTISING ACCOUNT EXECUTIVE 350.1.13.10 i ty of Visit REGIONAL 4.2.7.2.686 Sanjiv as MATERNAL [id number] [facility] [address] 2021-04-06 2021-04-06 Routine SharonUN[facility] 1.2.598.880 [id number] Univers 12:45:01 14:50:27 Ti N ADVERTISING ACCOUNT EXECUTIVE 350.1.13.10 i ty of Visit REGIONAL 4.2.7.2.686 Sanjiv as MATERNAL [id number] [facility] [address] 2021-04-06 2021-04-06 Outpatient R SHARON [facility] [id number] Univers 12:45:00 14:50:27 TI goldstein [facility] 2021-04-06 2021-04-06 [facility] [id number] Univers 12:45:00 14:50:27 TI goldstein [facility] 2021-04-06 2021-04-06 Outpatient Lexa [facility] [id number] Univers 12:45:00 12:45:00 TI goldstein [facility] 2021-04-06 2021-04-06 [facility] [id number] Univers 12:30:00 12:30:00 TI goldstein [facility] 2021-04-05 2021-04-05 Case [facility]UN[facility] 1.2.473.443 [id number] Univers 00:00:00 00:00:00 Management Ti Verónica ADVERTISING ACCOUNT EXECUTIVE 350.1.13.[address] [facility] 4.2.7.2.686 Sanjiv as MATERNAL [id number] Med ical & CHILD [address] [place] [address] 2021-04-05 2021-04-05 Telephone [facility] 1.2.840.114 [id number] Univers 00:00:00 00:00:00 Ti Verónica ADVERTISING ACCOUNT EXECUTIVE 350.1.13.[address] [facility] 4.2.7.2.686 Sanjiv as MATERNAL [id number] Med ical & CHILD [address] [place] [address] 2021-04-05 2021-04-05 Telephone [facility] 1.2.840.114 [id number] Univers 00:00:00 00:00:00 Ti Verónica ADVERTISING ACCOUNT EXECUTIVE 350.1.13.[address] [facility] 4.2.7.2.686 Sanjiv as MATERNAL [id number] Med ical & CHILD [address] [place] [address] 2021-04-04 2021-04-04 Telephone [facility] 1.2.840.114 [id number] Univers 00:00:00 00:00:00 Ti Sanches ADVERTISING ACCOUNT EXECUTIVE 350.1.13.[address] [facility] 4.2.7.2.686 Sanjiv as MATERNAL [id number] [facility] ical & CHILD [address] [place] [address] 2021-04-03 2021-04-03 Outpatient GENEVIEVE JAFFE [facility] [id number] Univers 15:12:00 17:45:00 GENEVIEVE WHITE [facility] 2021-04-03 2021-04-03 [facility] SANJEEV White 1.2.840.114 [id number] Univers 15:12:00 17:45:00 Encounter Genevieve GAFFNEY 350.1.13.10 ity of [facility] 4.2.7.2.686 Sanjiv as [id number] [address] 2021-04-03 2021-04-03 Outpatient GENEVIEVE JAFFE [facility] [id number] Univers 15:12:00 17:45:00 [facility] 2021-04-03 2021-04-03 Station Detective Lab, Ang-Rmchp [facility] 1.2.840. 114 [id number] Univers 13:11:50 13:31:01 Visit Ti Herrera ADVERTISING ACCOUNT EXECUTIVE 350.1.13.[address] [facility] 4.2.7.2.686 Sanjiv as MATERNAL [id number] [facility] ical & CHILD [address] [place] [address] 2021-04-03 2021-04-03 Outpatient Lexa HERRERA [facility] [id number] Univers 13:15:00 13:15:00 TI goldstein [facility] 2021-04-03 2021-04-03 Outpatient Lexa [facility] [id number] Univers 10:30:00 10:30:00 angelita [facility] 2021-03-30 2021-03-30 Telephone [facility]UN[facility] 1.2.840.114 [id number] Univers 00:00:00 00:00:00 Ti Sanches ADVERTISING ACCOUNT EXECUTIVE 350.1.13.[address] [facility] 4.2.7.2.686 Sanjiv as MATERNAL [id number] [facility] [address] 2021-03-27 2021-03-27 Routine [facility]UN[facility] 1.2.263.544 [id number] Univers 08:04:35 08:36:54 Ti Sanches ADVERTISING ACCOUNT EXECUTIVE 350.1.13.10 i ty of Visit [facility] 4.2.7.2.686 Sanjiv as MATERNAL [id number] [facility] CHILD [address] [place] [address] 2021-03-27 2021-03-27 Outpatient R SHARON [facility] [id number] Univers 08:00:00 08:36:54 TI goldstein [facility] 2021-03-23 2021-03-23 Outpatient Lexa AZAR [facility] [id number] Univers 14:15:00 15:30:44 ADELINA goldstein [facility] 2021-03-23 2021-03-23 Routine Anthony KSJORY 1.2.840.114 [id number] Univers 14:14:15 15:30:44 Adelina Garcia ADVERTISING ACCOUNT EXECUTIVE 350.1.13.10 i ty of Visit REGIONAL 4.2.7.2.686 Sanjiv as MATERNAL [id number] Med ical & CHILD 111 [facility] 2021-03-22 2021-03-22 Telephone ADELAIDA Herrera 1.2.840.114 [id number] Univers 00:00:00 00:00:00 Ti Sanches ADVERTISING ACCOUNT EXECUTIVE 350.1.13.[address] [facility] 4.2.7.2.686 Sanjiv as MATERNAL [id number] [facility] ical & CHILD [address] [place] [address] 2021-03-08 2021-03-08 Letter SANJEEV Calvert 1.2.840.114 [id number] Univers 00:00:00 00:00:00 (Out) Daisy GAFFNEY 350.1.13.10 it y of [facility] 4.2.7.2.686 Sanjiv as [id number] [address] 2021-03-07 2021-03-07 Urgent Mikey KSJORY 1.2.840.114 [id number] Univers 09:17:52 09:56:08 Care [facility] 350.1.13.10 it y of [place] 4.2.7.2.686 Sanjiv as Alonso?Blea [phone] Ri briana[address] [facility] 2021-03-07 2021-03-07 Outpatient R MIKEY KSJORY [facility] [id number] Univers 09:20:00 09:20:00 EDUARDO [facility] 2021-03-07 2021-03-07 Telephone Sharon KSJORY 1.2.840.114 [id number] Univers 00:00:00 00:00:00 Ti Sanches ADVERTISING ACCOUNT EXECUTIVE 350.1.13.[address] [facility] 4.2.7.2.686 Sanjiv as MATERNAL [id number] [facility] CHILD [address] [place] [address] 2021-03-06 2021-03-06 Routine Sharon KSJORY 1.2.072.498 [id number] Univers 13:49:47 14:16:15 Ti N ADVERTISING ACCOUNT EXECUTIVE 350.1.13.10 i ty of Visit [facility] 4.2.7.2.686 Sanjiv as MATERNAL [phone] [facility] ical & CHILD [address] [place] [address] 2021-03-06 2021-03-06 [facility] [id number] Univers 13:45:00 13:45:00 TI ity [facility] 2021-03-05 2021-03-06 Emergency [facility] 1.2.840.114 [id number] Univers 22:50:00 03:06:00 Rema Dumont [place] 350.1.13.10 ity [facility] [place].2.7.2.[place] [phone] [facility] [address] 2021-03-05 2021-03-05 Orders Doctor SANJEEV 1.2.840.114 [id number] Univers 00:00:00 00:00:00 Only Unassigned, YEIMY 350.1.13.10 ity of [place] [facility] 4.2.7.2.686 Sanjiv as [id number] [facility] [address] [place] 2021-03-01 2021-03-01 Office Glo Aragon [facility] 1.2.840.114 [id number] Univers 14:25:11 14:51:06 Visit [facility] 350.1.13.10 i ty of CL[place] 4[place] [id number] [facility] [address] [place] 2021-03-01 2021-03-01 Outpatient GLO DSOUZA [facility] [id number] Univers 14:30:00 14:30:00 ity [facility] 2021-02-20 2021-02-20 Routine [facility] 1.2.416.198 [id number] Univers 12:49:52 13:34:41 Ti N ADVERTISING ACCOUNT EXECUTIVE 350.1.13.10 i ty of Visit [facility] 4.2.7.2.686 Sanjiv as MATERNAL [id number] [facility] CHILD [address] [place] [address] 2021-02-20 2021-02-20 [facility] [id number] Univers 12:45:00 12:45:00 TI goldstein [facility] 2021-02-20 2021-02-20 Orders Doctor SANJEEV 1.2.840.114 [id number] Univers 00:00:00 00:00:00 Only Unassigned, YEIMY 350.1.13.10 ity of [place] [facility] 4.2.7.2.686 Sanjiv as [phone] [facility] [address] [place] 2021-01-30 2021-01-30 [facility] [id number] [id number] Univers 14:22:18 15:13:03 Ti N ADVERTISING ACCOUNT EXECUTIVE 350.1.13.10 i ty of Visit [facility] 4.2.7.2.686 Sanjiv as MATERNAL [phone] [facility] [address] [place] [address] 2021-01-30 2021-01-30 [facility] [id number] Univers 14:15:00 14:15:00 TI [facility]stein [facility] 2021-01-12 2021-01-12 Telephone [facility] 1.2.840.114 [id number] Univers 00:00:00 00:00:00 Ti Sanches ADVERTISING ACCOUNT EXECUTIVE 350.1.13.[address] [facility] 4.2.7.2.686 Sanjiv as MATERNAL [phone] [facility] & [address] 2021-01-04 2021-01-04 Office Glo Aragon [facility] 1.2.840.114 [id number] Univers 14:11:43 14:26:43 Visit [facility] 350.1.13.10 i ty [place] [phone] [facility] [address] [place] 2021-01-04 2021-01-04 Outpatient R GLO ARAGON [facility] [id number] Univers 14:15:00 [facility] 2021-01-02 Routine [facility] 1.2.840.114 [id number] Univers 15:04:14 15:19:14 Conora R ADVERTISING ACCOUNT EXECUTIVE 350.1.13.[address] [facility] 4.2.7.2.686 Sanjiv as MATERNAL [id number] [facility] & [address] 2021-01-02 2021-01-02 [facility] [id number] Univers 15:00:00 15:00:00 ROSHUNDA ity o f [facility] 2020-12-21 2020-12-21 Station Detective Meera, Jane [facility] 1.2 .840.114 [id number] Univers 14:05:58 15:04:47 Visit Syed Leary [place] 350.1.13.10 [place] [phone] Ri dic[address] 2020-12-21 2020-12-21 Outpatient P [facility] [id number] Univers 14:00:00 14:00:00 ity [facility] 2020-12-05 2020-12-05 Routine [facility] 1.2.840.114 [id number] Univers 17:16:27 18:00:34 Roszoiea R ADVERTISING ACCOUNT EXECUTIVE 350.1.13.10 ity of Visit REGIONAL 4.2.7.2.686 Sanjiv as MATERNAL [id number] [facility] & [address] 2020-12-05 2020-12-05 [facility] [id number] Univers 17:15:00 17:15:00 ROSJOANANDA ity o f [facility] 2020-11-30 2020-11-30 [facility] [id number] Univers 15:00:00 15:00:00 TI ity [facility] 2020-11-01 2020-11-01 Outpatient R [facility] [id number] Univers 14:00:00 14:00:00 ity [facility] 2020-11-01 2020-11-01 Station Detective 1 Pea-steph Room [facility] 1.2. 840.114 [id number] Univers 12:58:15 13:43:15 Visit Genevieve White ADVERTISING ACCOUNT EXECUTIVE 350.1.13.[address] [facility] 4.2.7.2.686 Sanjiv as MATERNAL [id number] [facility] ical & CHILD [address] [facility] 2020-11-01 2020-11-01 Station [facility] 1.2.840. 114 [id number] Univers 12:58:42 13:34:26 Visit Genevieve White ADVERTISING ACCOUNT EXECUTIVE 350.1.13.10 ity of Karena Mary Kwasi [facility] 4.2.7.2.686 [place] MATERNAL [id number] [facility] ical & CHILD [address] [place] [address] 2020-11-01 2020-11-01 Abstract Sharon [facility] 1.2.840.114 [id number] Univers 00:00:00 00:00:00 Ti Sanches ADVERTISING ACCOUNT EXECUTIVE 350.1.13.[address] [facility] 4.2.7.2.686 Sanjiv as MATERNAL [phone] [facility] & CHILD [address] [place] [address] 2020-10-31 2020-10-31 [facility] [id number] Univers 13:03:28 13:41:42 Ti Sanches ADVERTISING ACCOUNT EXECUTIVE 350.1.13.10 i [address] Visit [facility] 4.2.7.2.686 Sanjiv as MATERNAL [id number] [facility] [address] 2020-10-31 2020-10-31 Outpatient R SHARON [facility] [id number] Univers 13:00:00 13:00:00 TI goldstein [facility] 2020-10-03 2020-10-03 [facility] 1.2.193.140 [id number] Univers 14:19:19 15:16:46 Ti Sanches ADVERTISING ACCOUNT EXECUTIVE 350.1.13.10 i ty [address] Visit [facility] 4.2.7.2.686 Sanjiv as MATERNAL [id number] [facility] [address] 2020-10-03 2020-10-03 Outpatient R SHARON KSJORY [facility] [id number] Univers 14:15:00 14:15:00 TI goldstein [facility] 2020-09-28 2020-09-28 Initial [facility] [id number] Univers 08:57:47 11:22:29 Ti Verónica ADVERTISING ACCOUNT EXECUTIVE 350.1.13.10 i [address] Visit [facility] 4.2.7.2.686 Sanjiv as MATERNAL [id number] Med ical & CHILD [address] [place] [address] 2020-09-28 2020-09-28 [facility] [id number] Univers 08:30:00 08:30:00 TI itkaden [facility] 2020-09-28 2020-09-28 Orders Doctor SANJEEV 1.2.840.114 [id number] Univers 00:00:00 00:00:00 Only Unassigned, YEIMY 350.1.13.10 ity [place] [facility] 4.2.7.2.686 Sanjiv as [id number] [address] 2020-04-27 2020-04-27 Laboratory Lab, Adc Fam Pob I [facility] 1.2. 840.114 [id number] Univers 17:17:37 17:37:37 Only Unknown, Attending [facility].13.10 [facility] 4.2.7.2.686 Sanjiv as Professio [id number] [facility] [address] 2020-04-27 2020-04-27 Outpatient R JORGE [facility] [id number] Univers 17:20:00 17:20:00 ATTENDING [facility] 2020-04-27 2020-04-27 Letter Doctor SANJEEV 1.2.840.114 [id number] Univers 00:00:00 00:00:00 (Out) Unassigned, YEIMY 350.1.13.10 ity of [place] [facility] 4.2.7.2.686 Sanjiv as [phone] [address] Results Test Description Test Time Test Comments Results Result Comments Source POCT TEST 2022-11-05 19:18:00 Test Item Value Reference Range Interpretation Comme nts POCT PREG (test code = 1605) Negative On board controls acceptable with C Yes Line (test code = 3574) POCT PREG LOT # (test code = 3575) [id number] POCT PREG TEST DATE (test code 10/24/23 = 3576) LIANA (test code = LIANA) accurate development and interpretation of all internal controls\Ruthy Pérez RN ?11/05/2022 ?2:18 PM [facility] [id number] 19:18:00 Test Item Value Reference Range Interpretation Comments POCT PREG (test code Negative = 1605) On board controls Yes acceptable with C Line (test code = 3574) POCT PREG LOT # (test [id number] code = 3575) POCT PREG TEST 10/24/23 DATE (test code = 3576) LIANA (test code = LIANA) accurate development and interpretation of all internal controls\Ruthy Pérez RN ?11/05/2022 ?2:18 PM [facility] [id number] 19:18:00 Test Item Value Reference Range Interpretation Comments POCT PREG (test code Negative = 1605) On board controls Yes acceptable with C Line (test code = 3574) POCT PREG LOT # (test [id number] code = 3575) POCT PREG TEST 10/24/23 DATE (test code = 3576) LIANA (test code = LIANA) accurate development and interpretation of all internal controls\Ruthy Pérez RN ?11/05/2022 ?2:18 PM [facility] [id number] 19:18:00 Test Item Value Reference Range Interpretation Comments POCT PREG (test code Negative = 1605) On board controls Yes acceptable with C Line (test code = 3574) POCT PREG LOT # (test [id number] code = 3575) POCT PREG TEST 10/24/23 DATE (test code = 3576) LIANA (test code = LIANA) accurate development and interpretation of all internal controls\Ruthy Pérez RN ?11/05/2022 ?2:18 PM [facility] SYPHILIS [id number] 13:41:41 Test Item Value Reference Range Interpretation Comments Syphilis IgG/IgM (test Non-reactive Non-reactive code = 22122-9) LIANA (test code = LIANA) Non-reactive - No serologic evidence of T. pallidum infection. Cannot exclude incubating or early syphilis. Submit a second specimen in 2-4 weeks if syphilis is clinically suspected. Equivocal - Further testing to follow. Reactive - Further testing to follow. Lab Interpretation (test Normal code = 55304-2) [facility] [id number] 13:41:41 Test Item Value Reference Range Interpretation Comments Syphilis IgG/IgM (test Non-reactive Non-reactive code = 38830-4) LIANA (test code = LIANA) Non-reactive - No serologic evidence of T. pallidum infection. Cannot exclude incubating or early syphilis. Submit a second specimen in 2-4 weeks if syphilis is clinically suspected. Equivocal - Further testing to follow. Reactive - Further testing to follow. Lab Interpretation (test Normal code = 43621-8) [facility] 1/2 AG-AB WITH [id number] 08:25:46 Test Item Value Reference Range Interpretation Comments HIV 0.08 Negative Semi-quantitative (test code = 54945-2) LIANA (test code = Non-reactive for HIV-1 LIANA) antigen and HIV-1/HIV-2 antibodies. ?No laboratory evidence of HIV infection. ?Repeat in 2-4 weeks if acute HIV infection is suspected. [facility] 1/2 AG-AB WITH [id number] 08:25:46 Test Item Value Reference Range Interpretation Comments HIV 0.08 Negative Semi-quantitative (test code = 13323-4) LIANA (test code = Non-reactive for HIV-1 LIANA) antigen and HIV-1/HIV-2 antibodies. ?No laboratory evidence of HIV infection. ?Repeat in 2-4 weeks if acute HIV infection is suspected. [facility]A1C)2022-08-30 07:54:52 Test Item Value Reference Range Interpretation Comments HGB A1C (test code = 5.5 % 4.0-5.7 4548-4) LIANA (test code = LIANA) Reference RangesNormal: <5.7%Prediabetes: 5.7 - 6.4%Diabetes: > 6.5% Lab Interpretation (test Normal code = 13011-7) [facility]A1C)2022-08-30 07:54:52 Test Item Value Reference Range Interpretation Comments HGB A1C (test code = 5.5 % 4.0-5.7 4548-4) LIANA (test code = LIANA) Reference RangesNormal: <5.7%Prediabetes: 5.7 - 6.4%Diabetes: > 6.5% Lab Interpretation (test Normal code = 47333-1) [facility] [id number] 07:14:36 Test Item Value Reference Range Interpretation Comments HCV Ab (test code = 89384-3) Negative HCV Semi-Quantitative (test code = 0.04 24569-4) [facility] [id number] 07:14:36 Test Item Value Reference Range Interpretation Comments HCV Ab (test code = 40469-5) Negative HCV Semi-Quantitative (test code = 0.04 71674-7) [facility] WITH [id number] 06:36:14 Test Item Value Reference Range Interpretation Comments WBC (test code = 7.37 See_Comment [Automated 1191-2) message] The sy stem which generated this result transmitted reference range : 4.30 - 11.10 10*3/?L. The reference range was not used to interpret this result as normal/abnormal . RBC (test code = 5.57 See_Comment H [Automated 979-8) message] The sy stem which generated this [...] RDW-SD (test code = 44.0 fL 39.0-49.9 64543-8) RDW-CV (test code = 14.6 % 12.0-15.5 788-0) PLT (test code = 243 See_Comment [Automated 777-3) message] The sy stem which generated this result transmitted reference range : 166 - 358 10*3/ ?L. The reference r jasmine was not used to interpret this result as normal/abnormal . MPV (test code = 12.1 fL 9.5-12.9 85432-1) NRBC/100 WBC (test 0.0 See_Comment [Automat ed code = 6574831418) message] The system which generated this result transmitted reference range : 0.0 - 10.0 /100 WBCs. The refer ence range was not u sed to interpret th is result as normal/abnormal . NRBC x10^3 (test code See_Comment [Auto mated = [id number]) message] The s ystem which generated this result transmitted reference range : 10*3/?L. The reference range was not used to interpret this result as normal/abnormal . GRAN MAT (NEUT) % 55.9 % (test code = 770-8) IMM GRAN % (test code 0.30 % = 0110940096) LYMPH % (test code = 34.9 % 736-9) MONO % (test code = 6.2 % 5905-5) EOS % (test code = 2.0 % 713-8) BASO % (test code = 0.7 % 706-2) GRAN MAT x10^3(ANC) 4.12 10*3/uL 1.88-7.09 (test code = 5995058942) IMM GRAN x10^3 (test 0.00-0.06 code = 9284470136) LYMPH x10^3 (test code 2.57 10*3/uL 1.32-3.29 = 731-0) MONO x10^3 (test code 0.46 10*3/uL 0.33-0.92 = 742-7) EOS x10^3 (test code = 0.15 10*3/uL 0.03-0.39 711-2) BASO x10^3 (test code 0.05 10*3/uL 0.01-0.07 = 704-7) Lab Interpretation Abnormal (test code = 89971-9) [facility] WITH [id number] 06:36:14 Test Item Value Reference Range Interpretation [...] RDW-SD (test code = 44.0 fL 39.0-49.9 21969-3) RDW-CV (test code = 14.6 % 12.0-15.5 788-0) PLT (test code = 243 See_Comment [Automated 777-3) message] The sy stem which generated this result transmitted reference range : 166 - 358 10*3/ ?L. The reference r jasmine was not used to interpret this result as normal/abnormal . MPV (test code = 12.1 fL 9.5-12.9 30603-7) NRBC/100 WBC (test 0.0 See_Comment [Automat ed code = 6501035248) message] The system which generated this result transmitted reference range : 0.0 - 10.0 /100 WBCs. The refer ence range was not u sed to interpret th is result as normal/abnormal . NRBC x10^3 (test code See_Comment [Auto mated = 8107767942) message] The s ystem which generated this result transmitted reference range : 10*3/?L. The reference range was not used to interpret this result as normal/abnormal . GRAN MAT (NEUT) % 55.9 % (test code = 770-8) IMM GRAN % (test code 0.30 % = 9202898318) LYMPH % (test code = 34.9 % 736-9) MONO % (test code = 6.2 % 5905-5) EOS % (test code = 2.0 % 713-8) BASO % (test code = 0.7 % 706-2) GRAN MAT x10^3(ANC) 4.12 10*3/uL 1.88-7.09 (test code = 3105936732) IMM GRAN x10^3 (test 0.00-0.06 code = 2975805388) LYMPH x10^3 (test code 2.57 10*3/uL 1.32-3.29 = 731-0) MONO x10^3 (test code 0.46 10*3/uL 0.33-0.92 = 742-7) EOS x10^3 (test code = 0.15 10*3/uL 0.03-0.39 711-2) BASO x10^3 (test code 0.05 10*3/uL 0.01-0.07 = 704-7) Lab Interpretation Abnormal (test code = 74298-1) [facility] acute hospital SARS-COV-2 ANTIGEN (BINAX NOW)2022-08-21 15:15:00 Test Item Value Reference Range Interpretation Comments POCT SARS-COV-2 Not Detected Not Detected ANTIGEN (test code = 54574-5) On board controls Yes acceptable with C Line (test code = 3574) LIANA (test code = accurate development and LIANA) interpretation of all internal controlsRuthy Pérez RN ?08/21/2022 ?10:14 AM General acute hospital MOLECULAR [id number] 15:12:48 Test Item Value Reference Range Interpretation Comments POCT Molecular FluA (test code = Negative Negative 17197-4) POCT Molecular FluB (test code = Negative Negative 58858-5) Lab Interpretation (test code = Normal 33893-9) [facility]
--- NOTE | 2022-11-08 16:55 | RAD REPORT ---
EXAM DESCRIPTION: CT - Stone Protocol - 11/08/2022 4:33 pm CLINICAL HISTORY: Abdominal pain. Right flank pain COMPARISON: November 07, 2022 TECHNIQUE: Computed axial tomography of the abdomen pelvis was obtained without oral or IV contrast. Lack of IV and oral contrast limits evaluation of solid organs, appendix, bowel, and vessels. Alexander l reformatted images were obtained and reviewed. All CT scans are performed using dose optimization technique as appropriate and may include automated exposure control or mA/KV adjustment according to patient size. FINDINGS: A renal calculus is not seen. An ureteral calculus is not noted. A bladder calculus is not present. No hydronephrosis. Spleen is borderline enlarged. Prominent left lobe of the liver. Pancreas and adrenals grossly normal There is no evidence of diverticulitis. The appendix appears normal Spondylolysis L5-S1 2.5 centimeter right ovarian cyst. No further workup recommended Small umbilical hernia IMPRESSION: Negative for a genitourinary calculus
--- NOTE | 2022-11-08 17:10 | ER ---
Nurse's Notes [facility] Name: Toshia Mcclelland Age: 22 yrs Sex: Female : 2000 Arrival Date: 11/08/2022 Time: 15:07 Bed 9 Private MD: Diagnosis: Other and unspecified ovarian cysts;UTI/ Urinary tract infection, site not specified Presentation: 11/08 15:18 Chief complaint: Patient states: Lower abdominal pain + R flank pain worse x last ml4 night; seen here Fri, sent home with meds. Started amox yesterday. Coronavirus screen: At this time, the client does not indicate any symptoms associated with coronavirus-19. Ebola Screen: No symptoms or risks identified at this time. Initial Sepsis Screen: Does the patient meet any 2 criteria? No. Patient's initial sepsis screen is negative. Does the patient have a suspected source of infection? No. Patient's initial sepsis screen is negative. Risk Assessment: Do you want to hurt yourself or someone else? Patient reports no desire to harm self or others. Onset of symptoms was November 08, 2022. Care prior to arrival: None. Activity prior to arrival: None. 15:18 Method Of Arrival: Ambulatory ml4 15:18 Acuity: ANA 3 ml4 Triage Assessment: 15:19 General: Appears in no apparent distress. comfortable, Behavior is calm, cooperative, ml4 appropriate for age. Pain: Complains of pain in posterior aspect of right lateral abdomen, right lower quadrant and left lower quadrant Pain does not radiate. Pain currently is 8 out of 10 on a pain scale. Quality of pain is described as aching, throbbing, Pain began gradually, Is continuous. EENT: No deficits noted. No signs and/or symptoms were reported regarding the EENT system. Neuro: No deficits noted. Level of Consciousness is awake, alert, obeys commands, Oriented to person, place, time, situation, Appropriate for age. Cardiovascular: No deficits noted. Capillary refill < 3 seconds. Respiratory: No deficits noted. Airway is patent Respiratory effort is even, unlabored, Respiratory pattern is regular, symmetrical. GI: No deficits noted. Abdomen is round non-distended, Reports lower abdominal pain, nausea, Patient currently denies diarrhea, vomiting. : Denies burning with urination. Derm: No deficits noted. No signs and/or symptoms reported regarding the dermatologic system. Musculoskeletal: No deficits noted. No signs and/or symptoms reported regarding the musculoskeletal system. 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 - Social history:: Smoking status: Patient denies any tobacco usage or history of. Patient/guardian denies using alcohol, IV drugs. Screenin:22 Abuse screen: Denies threats or abuse. [facility] 15:38 [facility] ED Fall Risk Assessment (Adult) History of falling in the last 3 months, mb9 including since admission No falls in past 3 months (0 pts) Confusion or Disorientation No (0 pts) Intoxicated or Sedated No (0 pts) Impaired Gait No (0 pts) Mobility Assist Device Used No (0 pt) Altered Elimination No (0 pt) Score/Fall Risk Level 0 - 2 = Low Risk Oriented to surroundings, Maintained a safe environment, Educated pt \T\ family on fall prevention, incl call for assistance when getting out of bed. Nutritional screening: No deficits noted. Tuberculosis screening: No symptoms or risk factors identified. Assessment: 16:35 Reassessment: No changes from previously documented assessment. Patient and/or family mb9 updated on plan of care and expected duration. Pain level reassessed. Patient is alert, oriented x 3, equal unlabored respirations, skin warm/dry/pink. 17:19 Reassessment: Patient and/or family updated on plan of care and expected duration. Pain mb9 level reassessed. Patient is alert, oriented x 3, equal unlabored respirations, skin warm/dry/pink. Patient states feeling better. Patient states symptoms have improved. Vital Signs: 15:16 BP 122 / 71; Pulse 75; Resp 18; Temp 98.4(T); Pulse Ox 99% on R/A; Weight 94.8 kg; 4 Height 5 ft. 3 in. ; Pain 8/10; 15:16 Body Mass Index 37.02 (94.80 kg, 160.02 cm) [facility] 15:16 Pain Scale: Adult ml4 ED Course: 15:10 Patient arrived in ED. mr 15:13 YonnyJanie FNP-C is [facility]. snw 15:14 Sixto Bowman MD is Attending Physician. snw 15:16 Arm band placed on right wrist. ml4 15:19 Triage completed. ml4 15:38 Indigo Singh, RN is Primary Nurse. mb9 15:38 Placed in gown. Bed in low position. Call light in reach. Side rails up X 1. Client mb9 placed on continuous cardiac and pulse oximetry monitoring. NIBP monitoring applied. 15:38 No provider procedures requiring assistance completed. mb9 15:47 Inserted saline lock: 20 gauge in left antecubital area, using aseptic technique. ml4 16:35 CT Stone Protocol In Process Unspecified. EDMS 17:27 IV discontinued, intact, bleeding controlled, No redness/swelling at site. Pressure mb9 dressing applied. Administered Medications: 17:08 Drug: Ketorolac IVP 30 mg Route: IVP; Site: left forearm; mb9 17:19 Follow up: Response: No adverse reaction mb9 17:11 Drug: Rocephin IV 1 grams Route: IV; Rate: calculated rate; Site: left forearm; mb9 17:19 Follow up: Response: No adverse reaction; IV Status: Completed infusion mb9 Medication: 15:38 VIS not applicable for this client. mb9 Outcome: 17:09 Discharge ordered by . snw 17:27 Discharged to home ambulatory. mb9 17:27 Condition: stable 17:27 Discharge instructions given to patient, Instructed on discharge instructions, follow up and referral plans. Demonstrated understanding of instructions, follow-up care, medications, Prescriptions given X 1. 17:27 Patient left the ED. mb9 Signatures: Dispatcher [employer] EDMS Janie Blancas FNP-C YOUTH CARE PROFESSIONAL-Csn Indigo Dee DuongjesusitaIndigo, RN RN mb9 LUPIS PageIII, David RN RN ml4 Corrections: (The following items were deleted from the chart) 15:26 15:18 Chief complaint: Patient states: Lower abdominal pain + R flank pain worse x last ml4 night; seen here Wed and dx with bladder infection ml4
--- NOTE | 2022-11-08 17:10 | EDPHYS ---
Physician Documentation [facility] Name: Toshia Mcclelland Age: 22 yrs Sex: Female : 2000 Arrival Date: 11/08/2022 Time: 15:07 Bed 9 Private MD: ED Physician Sixto Bowman HPI: 11/08 15:47 This 22 yrs old Female presents to ER via Ambulatory with complaints of Abdominal Pain, snw Flank Pain. 15:47 The patient presents with abdominal pain. Onset: The symptoms/episode began/occurred snw acutely. The symptoms radiate to the right flank. Associated signs and symptoms: none. The symptoms are described as crampy. Severity of pain: At its worst the pain was moderate. pt with dx from this ED early yesterday am. On abx but had increased lower abd cramping and right flank pain. No fever, N/V/D. as noted. 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 - Social history:: Smoking status: Patient denies any tobacco usage or history of. Patient/guardian denies using alcohol, IV drugs. ROS: 15:46 Constitutional: Negative for fever, chills, and weight loss, Eyes: Negative for injury, snw pain, redness, and discharge, ENT: Negative for injury, pain, and discharge, Neck: Negative for injury, pain, and swelling, Cardiovascular: Negative for chest pain, palpitations, and edema, Respiratory: Negative for shortness of breath, cough, wheezing, and pleuritic chest pain. 15:46 MS/Extremity: Negative for injury and deformity, Skin: Negative for injury, rash, and discoloration, Neuro: Negative for headache, weakness, numbness, tingling, and seizure, Psych: Negative for depression, anxiety, suicide ideation, homicidal ideation, and hallucinations. 15:46 Abdomen/GI: Positive for abdominal cramps, of the right lower quadrant and left lower quadrant. 15:46 Back: Positive for flank pain, on the right. Exam: 15:45 Constitutional: This is a well developed, well nourished patient who is awake, alert, snw and in no acute distress. Head/Face: Normocephalic, atraumatic. Eyes: Pupils equal round and reactive to light, extra-ocular motions intact. Lids and lashes normal. Conjunctiva and sclera are non-icteric and not injected. Cornea within normal limits. Periorbital areas with no swelling, redness, or edema. ENT: Nares patent. No nasal discharge, no septal abnormalities noted. Tympanic membranes are normal and external auditory canals are clear. Oropharynx with no redness, swelling, or masses, exudates, or evidence of obstruction, uvula midline. Mucous membranes moist. Neck: Trachea midline, no thyromegaly or masses palpated, and no cervical lymphadenopathy. Supple, full range of motion without nuchal rigidity, or vertebral point tenderness. No Meningismus. Chest/axilla: Normal chest wall appearance and motion. Nontender with no deformity. No lesions are appreciated. Cardiovascular: Regular rate and rhythm with a normal S1 and S2. No gallops, murmurs, or rubs. Normal PMI, no JVD. No pulse deficits. Respiratory: Lungs have equal breath sounds bilaterally, clear to auscultation and percussion. No rales, rhonchi or wheezes noted. No increased work of breathing, no retractions or nasal flaring. Abdomen/GI: Soft, non-tender, with normal bowel sounds. No distension or tympany. No guarding or rebound. No evidence of tenderness throughout. Back: No spinal tenderness. No costovertebral tenderness. Full range of motion. Skin: Warm, dry with normal turgor. Normal color with no rashes, no lesions, and no evidence of cellulitis. MS/ Extremity: Pulses equal, no cyanosis. Neurovascular intact. Full, normal range of motion. Neuro: Awake and alert, GCS 15, oriented to person, place, time, and situation. Cranial nerves II-XII grossly intact. Motor strength 5/5 in all extremities. Sensory grossly intact. Cerebellar exam normal. Normal gait. Psych: Awake, alert, with orientation to person, place and time. Behavior, mood, and affect are within normal limits. Vital Signs: 15:16 BP 122 / 71; Pulse 75; Resp 18; Temp 98.4(T); Pulse Ox 99% on R/A; Weight 94.8 kg; ml4 Height 5 ft. 3 in. ; Pain 8/10; 15:16 Body Mass Index 37.02 (94.80 kg, 160.02 cm) ml4 15:16 Pain Scale: Adult ml4 MDM: 15:14 Patient medically screened. snw 17:15 Differential diagnosis: appendicitis, non-specific abd pain, Pyelonephritis, urinary snw tract infection. Data reviewed: vital signs, nurses notes. I considered the following discharge prescriptions or medication management in the emergency department Medications were administered in the Emergency Department. See MAR. Counseling: I had a detailed discussion with the patient and/or guardian regarding: the historical points, exam findings, and any diagnostic results supporting the discharge/admit diagnosis, radiology results, the need for outpatient follow up, to return to the emergency department if symptoms worsen or persist or if there are any questions or concerns that arise at home. Special discussion: Based on the patient's Hx, exam, and Dx evaluation, there is no indication for emergent surgery or inpatient Tx. It is understood by the patient/guardian that if the Sx's persist or worsen they need to return immediately for re-evaluation. Based on the history and exam findings, there is no indication for further emergent testing or inpatient evaluation. I discussed with the patient/guardian the need to see the primary care provider for further evaluation of the symptoms. 11/08 15:23 Order name: CT Stone Protocol; Complete Time: 16:58 snw Administered Medications: 17:08 Drug: Ketorolac IVP 30 mg Route: IVP; Site: left forearm; mb9 17:19 Follow up: Response: No adverse reaction mb9 17:11 Drug: Rocephin IV 1 grams Route: IV; Rate: calculated rate; Site: left forearm; mb9 17:19 Follow up: Response: No adverse reaction; IV Status: Completed infusion mb9 Disposition: 11/09 16:39 I reviewed the patient's care provided by the Advanced Practice Provider and agree with jrBernice the diagnosis and treatment plan. Disposition Summary: 11/08/22 17:09 Discharge Ordered Location: Home snw Condition: Stable snw Diagnosis - Other and unspecified ovarian cysts snw - UTI/ Urinary tract infection, site not specified snw Followup: snw - With: Emergency Department - When: As needed - Reason: Worsening of condition Followup: snw - With: Private Physician - When: 2 - 3 days - Reason: Recheck today's complaints, Continuance of care, Re-evaluation by your physician Discharge Instructions: - Discharge Summary Sheet snw - Urinary Tract Infection, Adult snw - Rehydration, Adult snw Forms: - Medication Reconciliation Form snw - Thank You Letter snw - Antibiotic Education snw - Prescription Opioid Use snw - Work release form mb9 Prescriptions: - Diclofenac Sodium 75 mg Oral Tablet Sustained Release - take 1 tablet by ORAL route 2 times per day; 30 tablet; Refills: 0, Product snw Selection Permitted Signatures: Dispatcher [employer] EDMS Janie Blancas, RECHARGER-C RECHARGER-Csnw Sixto Bowman MD MD [id number] Samantha, Indigo Otto, RN RN mb9 Kaylee, LUPISIII, David, RN RN ml4
[2022-11-08] MEDS ORDERED: CEFTRIAXONE 1000 MG/VIAL ONE (17:12)
[2022-11-08] MEDS ORDERED: NA CHLORIDE 0.9% 50 ML ONE (17:13)
[2022-11-08 19:18] VITALS: BP 122/71; TEMP 98.4; O2SAT 99
== END 2022-11-08 17:27 | disposition home or self-care (01) ==
LOC: ER 15:07
DX: N39.0 Urinary tract infection, site not specified (principal); N83.299 Other ovarian cyst, unspecified side
CPT/HCPCS: 76377; 74176; 96375; 96374; 99284; J0696